=== PATIENT | female | born 1985 | race Caucasian/White ===

== ENCOUNTER 2018-06-16 07:28 | Outpatient (CLI) | payer BC, SELFPAY | END 2018-06-16 07:48 | PROVIDERS: Advanced Practice Midwife; PCP Family Medicine; Visit Provider Advanced Practice Midwife | DX: O24.429 Gestational diabetes mellitus in childbirth, unspecified control (principal) | CPT/HCPCS: 36410; 82951 ==

== ENCOUNTER 2019-03-16 12:37 | Outpatient (REF) | payer BC, SELFPAY ==
[2019-03-17 15:03] LABS: Chlamydia Result Negative; GC Result Negative; Specimen Description CERVIX
== END 2019-03-16 12:57 ==
LOC: LBN 12:37
PROVIDERS: PCP Family Medicine; Visit Provider Nurse Practitioner Family
DX: Z11.3 Encounter for screening for infections with a predominantly sexual mode of transmission (principal)
CPT/HCPCS: 87491; 87591

== ENCOUNTER 2019-11-18 13:33 | Outpatient (REF) | payer BC, SELFPAY ==
[2019-11-19 14:53] LABS: Chlamydia Result Negative (Negative); GC Result Negative (Negative)
== END 2019-11-18 13:53 ==
LOC: LBN 13:33
PROVIDERS: PCP Family Medicine; Visit Provider Nurse Practitioner Family
DX: Z11.3 Encounter for screening for infections with a predominantly sexual mode of transmission (principal)
CPT/HCPCS: 87491; 87591

== ENCOUNTER 2020-02-10 00:54 | Outpatient (CLI) | payer BC, SELFPAY ==
--- NOTE | 2020-02-10 13:00 | DI.US_ITS ---
EXAM: US PELVIS TRANSVAGINAL CLINICAL HISTORY: Heavy and painful periods,menorrhagia, n92.0. TECHNIQUE: Transabdominal and transvaginal pelvic ultrasound was performed using standard protocol. COMPARISON: OB ASSESSMENT - WEIGHT/ISIAH from 04/27/2018 FINDINGS: KIDNEYS: Kidneys are symmetric in size. No evidence of renal calculi. No evidence of hydronephrosis. No renal mass or cyst identified. UTERUS: Position: Anteverted. Size: 10.5 x 4.7 x 6.3 cm Endometrium: 1.1 cm. Normal for patient's menstrual status. Myometrium: Unremarkable. Cervix: Nabothian cysts present. OVARIES: Right: 3.2 x 1.5 x 2.4 cm Cyst or mass: Follicular cysts are present. Left: 3.2 x 1.9 x 3.6 cm Cyst or mass: Follicular cysts are present with a 1.8 cm dominant follicle. DOPPLER: Color: Symmetric and uniform flow to both ovaries. No hyperemia. Duplex: Normal ovarian arterial waveforms visualized. CUL-DE-SAC: Free fluid: None. Other: The spleen is at the upper limits of normal measuring 12 cm in length. There is a 1 cm cyst i n the spleen. IMPRESSION: 1. Normal sonographic appearance of the kidneys. 2. Normal-appearing uterus with endometrial stripe within normal limits. 3. Unremarkable bilateral ovaries. DATA REPOSITORY:
== END 2020-02-10 01:14 ==
PROVIDERS: PCP Family Medicine Adult Medicine; Visit Provider Nurse Practitioner Family
DX: N92.0 Excessive and frequent menstruation with regular cycle (principal); N83.01 Follicular cyst of right ovary; N83.02 Follicular cyst of left ovary
CPT/HCPCS: 76830; 76856

== ENCOUNTER 2020-02-10 01:13 | Outpatient (CLI) | payer BC, SELFPAY ==
[2020-02-10 13:36] LABS: TSH (W/Ref FT4) 1.51 uIU/mL (0.36-3.74)
== END 2020-02-10 01:33 ==
PROVIDERS: PCP Family Medicine Adult Medicine; Visit Provider Nurse Practitioner Family
DX: N92.6 Irregular menstruation, unspecified (principal)
CPT/HCPCS: 36415; 84443

== ENCOUNTER 2020-02-11 16:04 | Outpatient (REF) | payer BC, SELFPAY ==
--- NOTE | 2020-02-11 14:45 | ENDOMET_PTH ---
PATIENT: Cele Romero LOC: [facility] U#:[id number] AGE/SX: 34/F ROOM: RE02/11/[address]: Ashley Lewis : 1985 BED: DIS: 02/11/2020 SPEC #: [id number] RECD: 02/11/20 16:20 STATUS: JOYCELYN RELinus #: [id number] LI: 02/11/20 14:[address]: Ashley Lewis DEPT: Surgical Specimen RECD BY: Lucio Aguilar ENTERED: 02/11/20 16:21 SP TYPE: Endomet OTHR DR: Jose Velasquez Tissues: 1 - ENDOMETRIUM BX/CURRETTE Procedures: GROSS AND MICRO LEVEL 4 Comments: [id number]
== END 2020-02-11 16:24 ==
LOC: LBN 16:04
PROVIDERS: PCP Family Medicine Adult Medicine; Visit Provider Obstetrics & Gynecology Gynecology
DX: N92.0 Excessive and frequent menstruation with regular cycle (principal); N85.01 Benign endometrial hyperplasia
CPT/HCPCS: 88305

== ENCOUNTER 2022-04-29 02:02 | Outpatient (CLI) | payer BC, SELFPAY ==
--- OUTSIDE RECORDS SUMMARY | 2022-04-29 02:04 | XMS_ITS | Encounter Summary ---
:1985 Author Organization [facility] [address] Care Team Providers Name Role Phone Jose Velasquez MD Primary Care Provider Encounter Details Date Type Department Care Team Description 07/15/2020 Telephone General Surgery at [facility] Gonzalez Cadena MD [facility] [place] [phone] GENERAL SURGERY [phone] [place], [place] [address] (Wo rk) Social History Tobacco Use Types Packs/Day Years Used Date Never Smoker Smokeless Tobacco: Never Used Sex Assigned at Date Recorded Not on file documented as of this encounter Miscellaneous Notes Telephone Encounter - Gonzalez Cadena MD - 07/15/2020 10:30 AM EDT I was called by Cele Romero this morning 07/15 with complaints of seton related pain. She states that since she has had her Seton placed earlier this week she has been having pain in the jaylene-anal area. This pain is exacerbated by movement as well as bowel movements. She states she can move the seton, it continues to drain small amount of fluid, she denies fevers/chills, and she cannot appreciate any local masses in the area. She is currently taking tylenol/ibuprophen for pain management. I discussed with her the options of coming to ED vs. Coming to be seen in clinic earlier than her scheduled 08/10 appointment. She agreed that it would be reasonable to hold off on coming to the ED for now. I explained to her that if she starts to develop fevers/chills, fatigue, or an enlarging mass in the jaylene-anal region that she should call back and potentially be seen sooner. For pain control in the shortterm, I will prescribe her 10 tablets of tramadol. She is already taking miralax every morning in her coffee to keep her stool soft. I told her she could increase that to twice a day while she takes the tramadol and to decrease back to once a day if her stools become too loose. Gonzalez Cadena MD 07/15/20 documented in this encounter Plan of Treatment Not on filedocumented as of this encounter Visit Diagnoses Not on filedocumented in this encounter Care Teams Bait Digger Relationship Specialty Start Date End Date Jose Velasquez MD PCP - General General Internal Medicine 12/08/[address] [place] [phone] documented as of this encounter
--- OUTSIDE RECORDS SUMMARY | 2022-04-29 02:04 | XMS_ITS | Encounter Summary ---
:1985 Author Organization [facility] [place] [address] Care Team Providers Name Role Phone Joes Velasquez MD Primary Care Provider Reason for Referral Consultation (Routine) - Closed Specialty Diagnoses / Procedures Referred By Contact Refer red To Contact Gastroenterology Diagnoses Perianal fistula Pavel Ramos, KAM[facility] [address] [place] [address] [place] [address] Phone: Referral ID Status Reason Start Date Expiration Date Visits V isits Requested Authorized [id number] Closed Test Only 02/01/2021 02/01/2022 1 1 Reason for Visit Reason Comments Follow-up Encounter Details Date Type Department Care Team Description 02/01/2021 Office Visit General Surgery at Pavel Ramos, Aimee anal fistula [facility] [place] [facility] [place] [phone] Social History Tobacco Use Types Packs/Day Years Used Date Never Smoker Smokeless Tobacco: Never Used Sex Assigned at Date Recorded Not on file documented as of this encounter Last Filed Vital Signs Vital Sign Reading Time Taken Comments Blood Pressure 126/77 02/01/2021 9:43 AM EDT Pulse 77 02/01/2021 9:43 AM EDT Temperature 36.4 ??C (97.5 ??F) 02/01/2021 9:43 AM EDT Respiratory Rate 16 02/01/2021 9:43 AM EDT Oxygen Saturation 100% 02/01/2021 9:43 AM EDT Inhaled Oxygen Concentration - - Weight 123.7 kg (272 lb 9.6 oz) 02/01/2021 9:43 AM EDT Height 165.1 cm (5' 5) 02/01/2021 9:43 AM EDT Body Mass Index 45.36 02/01/2021 9:43 AM EDT documented in this encounter Progress Notes Pavel Ramos PA - 02/01/2021 10:00 AM EDT Colorectal Surgery Outpatient Follow-up ~ Division of Colon and Rectal Surgery ~ [facility] Primary Care Physician: Jose Velasquez MD Referring Provider: Jose Velasquez HPI: Cele Romero is a 35 y.o. female from [facility]. She is here for a post-operative check. 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 She had a significant amount of irritation after placement of the seton. We trimmed some of the excesslength of seton and this improved things for her dramatically. She returns today for interval follow-up. At our last visit in August 2020 we had discussed surgical repair options including endorectaladvancement flap versus LIFT versus long-term maintenance of the seton. Past medical history: Past Medical History: Diagnosis Date ??? Acne Past surgical history: Past Surgical History: Procedure Laterality Date ??? PRO REMOVAL ANAL FISTULA, COMPLEX/MULTI N/A 07/11/2020 SURGICAL TREATMENT OF ANAL FISTULA COMPLEX OR MULTIPLE W\WO SETON PLACEMENT (WRVU 6.39) performed by Bry Gama MD at [facility] Allergies: Patient has no known allergies. Medications: reviewed in the electronic medical record. Current Outpatient Medications on File Prior to Visit Medication Sig Dispense Refill ??? loratadine (Claritin) 10 mg Tablet Take 10 mg by mouth daily. ??? traMADoL (Ultram) 50 mg Tablet Take 1 tablet by mouth every 6 hours as needed for Pain. (Patientnot taking: Reported on 08/10/2020) 10 tablet 0 ??? diphenhydramine HCl (ALLERGY ORAL) Take by mouth daily. ??? etonogestreL (NEXPLANON) 68 mg Implant by Subdermal route Continuous (Device). Expected removal date 02/2022 ??? vitamin with [id number] Tablet Take by mouth. No current facility-administered medications on file prior to visit. Social history: reports that she has never smoked. She has never used smokeless tobacco. Family medical history: No family history on file. Physical exam: Vitals: unknown if currently .There is no height or weight on file to calculate BMI. General: Well developed. NAD. The patient was positioned on the table prone mirian-knife with assistance from nursing. The perianal skin is clean. The left lateral seton is in good position. There is minimal surroundinginflammation. The seton tract appears well-defined. There is some surrounding periseton fibrosis. Ondigital anorectal examination she does have some tenderness to palpation internal opening can be palpated at approximately 1 cm from the anal verge. A well-lubricated Hirschman anoscope was inserted into the anal canal four-quadrant anoscopy identifies internal hemorrhoids which are grade 1 with some engorgement and ectatic vessels. In the left lateral position the seton internal opening is clearly visualized with minimal surrounding drainage. COREFO Responses 07/06/2020 07/19/2020 08/10/2020 09/04/2020 Incontinence Scale 11.11 22.22 13.88 11.11 Social Impact Scale 25 13.88 19.44 13.88 Frequency Scale 12.5 12.5 12.5 12.5 Stool Releated Aspects 66.66 66.66 41.66 16.66 Medication Scale 16.66 41.66 25 16.66 Total COREFO Score 23.07 25.96 20.19 13.46 The COREFO questionnaire is a validated questionnaire with 27 questions to assess colorectal functional outcome. Patients are asked to consider the two week period prior before filling out the questionnaire. Category scores range from zero to 100. A total score is calculated from the categories above,also ranging from zero to 100. A higher score represents an increased level of functional disturbance. No flowsheet data found. Pathology: No results found for: SURGFINALRPT Colonoscopy: Imaging: reviewed. Impression/Plan: Cele Romero is now 7 months s/p left lateral seton placement for control of an transphincteric fistula on 07/11/2020. The patient and I had a long discussion regarding treatment of perianal fistulae. Prior to this treatment algorithm which includes observation which includes lift pr ocedure endoanal advancement flap versus fistulotomy. Prior to this, the patient will require evaluation with colonoscopy as she has not had one in greater than 10 years. I would like her to see my partner Dr. Akua Chatterjee in the next months following colonoscopy for repeat evaluation and anoscopy with discussion of repair options. He has been a pleasure to participate in her care. Pavel Ramos PA-C, [facility] Division of Colon and Rectal Surgery [facility] Pager [phone] documented in this encounter Plan of Treatment Scheduled Referrals Name Type Priority Associated Order Schedule Diagnoses REFERRAL TO Outpatient Referral Routine Perianal fistula Orde red: COLONOSCOPY PROCEDURE 2020 documented as of this encounter Visit Diagnoses Diagnosis Perianal fistula - Primary Anal fistula documented in this encounter Care Teams Biomedical Repair Technician Relationship Specialty Start Date End Date Jose Velasquez MD PCP - General General Internal Medicine 12/08/17 [address] [place] [address] documented as of this encounter
--- OUTSIDE RECORDS SUMMARY | 2022-04-29 02:04 | XMS_ITS | Encounter Summary ---
:1985 Author Organization [facility] [place] [address] Care Team Providers Name Role Phone Jose Velasquez MD Primary Care Provider Reason for Visit Auth/Cert Specialty Diagnoses / Procedures Referred By Contact Refer red To Contact Diagnoses Inflammatory bowel disease 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 Assess for inflammatory bowel disease. Procedures PRO COLONOSCOPY, DIAGNOSTIC PRO COLONOSCOPY, REMV LESN, SNARE PRO COLONOSCOPY, BIOPSY PRO ANESTH, LWR INTESTINE, NOS COLONOSCOPY, DIAGNOSTIC Referral ID Status Reason Start Date Expiration Date Visits Requ ested Visits Authorized [id number] 1 1 Encounter Details Date Type Department Care Team Description 02/15/2021 Surgery Operating Room Gilbert Best C OLONOSCOPY FLEXIBLE, Alise Robins MD WITH BX (WRVU 3.66) [address] [place] [address] GASTROENTEROLOGY [place], [place] [address] (Wo rk) Social History Tobacco Use Types Packs/Day Years Used Date Never Smoker Smokeless Tobacco: Never Used Sex Assigned at Date Recorded Not on file documented as of this encounter Last Filed Vital Signs Vital Sign Reading Time Taken Comments Blood Pressure 129/86 02/15/2021 11:24 AM EDT Pulse 86 02/15/2021 11:09 AM EDT Temperature 36.4 ??C (97.5 ??F) 02/15/2021 11:09 AM EDT Respiratory Rate 16 02/15/2021 11:24 AM EDT Oxygen Saturation 100% 02/15/2021 11:24 AM EDT Inhaled Oxygen Concentration - - Weight 123.4 kg (272 lb) 02/15/2021 10:00 AM EDT Height 165.1 cm (5' 5) 02/15/2021 10:00 AM EDT Body Mass Index 45.26 02/15/2021 10:00 AM EDT documented in this encounter Discharge Instructions Discharge InstructionsShania Ghosh RN - 02/15/2021 10:53 AM EDT You have just undergone surgery and the following instructions are given to help you have an uneventful recovery: DIET: ??? Avoid alcohol for the next 24 hours, otherwise eat and drink as usual. ACTIVITY ??? On the day of the procedure please have a friend drive you home and escort you into your house. Plan to relax for the next few hours. ??? Do not drive or operate machinery until the day after the procedure. ??? DO NOT make any important personal or business decisions for 24 hours. ??? On the day after your procedure, you may return to your usual activities, unless otherwise instructed. DRIVING RESTRICTIONS: ??? You should not drive until you are pain free and off narcotic pain medication. TREATMENT FOR COMMON AFTER EFFECTS COLONOSCOPY ??? Mild abdominal pain, bloating or excessive gas: rest and eat lightly. ??? Loose bowel movements: these may occur for the next few days, but should return to normal on their own. ??? Please drink plenty of fluids today, preferably water, to keep yourself well hydrated. DURING REGULAR BUSINESS HOURS CALL YOUR PHYSICIAN AT : (FOR AFTER HOURS CALL [phone] AND ASK FOR PHYSICIAN COVERING FOR YOUR DOCTOR TO BE PAGED) ENDOSCOPY/ERCP ??? Fever or chills ??? Severe abdominal pain or bloating ??? Vomiting blood ??? Difficulty breathing or swallowing ??? Pain in chest ??? Any questions or problems SMOKING CESSATION INFORMATION: ??? [place] QUITLINE: ??? [place] QUITLINE: ??? [email or web address] If you smoke, stop now! MAKE SURE YOU: ??? Understand these instructions. ??? Will seek medical care if you are feeling poor, or get worse. ??? Will call the office with any questions or concerns at . Nursing information only: ??? Original document to medical records ??? Copy given to patient at discharge ??? Belongings/Valuables returned to patient ??? All questions answered ??? IV and hospital equipment removed from patient as appropriate The above information has been presented or demonstrated. I/we have had the opportunity to ask questions. I/we fully understand the instructions given. I/we have received a copy of this form. documented in this encounter Medications at Time of Discharge Medication Sig Dispensed Refills Start Date End Date multivitamin Tablet, Take by mouth daily. 0 Chewable lactobacillus rhamnosus, Take 1 capsule by 0 GG, (CULTURELLE) 10 mouth daily. billion cell Capsule loratadine (Claritin) 10 Take 10 mg by mouth 0 mg Tablet daily. etonogestreL (NEXPLANON) by Subdermal route 0 68 mg Implant Continuous (Device). Expected removal date 02/2022 documented as of this encounter H&P Notes Gilbert Batista MD - 02/15/2021 9:58 AM EDT Patient Name: Cele Romero Patient Age: 35 y.o. Birthdate: 1985 Admit date: 02/15/2021 Attending Physician: Gilbert Batista MD Gastroenterology and Hepatology Pre-Procedure History and Physical Exam Procedure: Colonoscopy: Indication: evaluate for IBD Patient Active Problem List Diagnosis Code ??? Positive test for human papillomavirus (HPV) [id number] ??? Morbid obesity with body mass index of 40.0-49.9 E66.01 ??? Encounter for supervision in primigravida, antepartum Z34.00 EXAM: HEENT: Airway examined, oropharynx clear Mallampati Score: II (soft palate, uvula, fauces visible) LUNGS: Clear to auscultation HEART: Regular rate and rhythm, normal S1, S2 ABDOMEN: Normal bowel sounds, soft, non tender, non distended, A/P Proceed with the planned endoscopic procedure. ASA 2 - Patient with mild systemic disease with no functional limitations Sedation Plan: anesthesia Risks and benefits of the procedure explained to the patient. Consent signed. documented in this encounter Miscellaneous Notes Op Note - Gilbert Batista MD - 02/15/2021 10:47 AM EDT DH Operative Note Patient Name: Cele Romero : [id number] MR#: [id number] Case Date: 02/15/2021 Surgeon: Surgeon(s) and Role: * Gilbert Batista MD - Primary Procedure(s): COLONOSCOPY FLEXIBLE, WITH BX (WRVU 3.66) Please see Provation report for details. documented in this encounter Plan of Treatment Not on filedocumented as of this encounter Procedures Procedure Name Priority Date/Time Associated Diagnosis Comme nts SPECIMEN TO Routine 02/15/2021 10:57 Results for this PATHOLOGY AM EDT procedure are i n the results section. SPECIMEN TO Routine 02/15/2021 10:57 Results for this PATHOLOGY AM EDT procedure are i n the results section. SURGICAL PATHOLOGY Routine 02/15/2021 10:56 Resul ts for this REPORT AM EDT procedure are i n the results section. COLONOSCOPY 02/15/2021 10:42 Bright red blood per FLEXIBLE, WITH BX AM EDT rectum history of (WRVU 3.66) recurrent fistula. Assess for inflammatory bowel disease. COLONOSCOPY Routine 02/15/2021 10:30 Results for this AM EDT procedure are i n the results section. POCT URINE Routine 02/15/2021 Results for this procedure are i n the results section. documented in this encounter Results Specimen to Pathology (02/15/2021 10:57 AM EDT) Specimen Anatomical Collection Method Collection Time Receive d Time (Source) Location / / Volume Laterality AP Specimen 02/15/2021 10:57 02/15/2021 AM EDT 10:57 AM EDT [facility]AT [facility]Y - 02/15/2021 10:57 AM EDT Specimen requisition ordered. ??Separate Pathology report to follow Gilbert Batista MD PATHOLOGY/CYTOLOGY ORDERABLE S Performing Organization Address City/State/ZIP Code Phon e Number [address] Specimen to Pathology (02/15/2021 10:57 AM EDT) Specimen Anatomical Collection Method Collection Time Receive d Time (Source) Location / / Volume Laterality AP Specimen 02/15/2021 10:57 02/15/2021 AM EDT 10:57 AM EDT Narrative [facility] LABORAT [facility]Y - 02/15/2021 10:57 AM EDT Specimen requisition ordered. ??Separate Pathology report to follow Gilbert Batista MD PATHOLOGY/CYTOLOGY ORDERABLE S Performing Organization Address City/[facility]/ZIP [place] [address] Surgical Pathology Report (02/15/2021 10:56 AM EDT) Component Value Ref Test Analysis Performed At [facility] Range Method Time Signature Surgical [id number] ? Location: [facility]-; RI10; A [facility] Report The signing pathologist has (i) examined the relevant preparation(s) for the [facility] specimen(s) and (ii) rendered or confirmed the diagnosis(es) . HOSPITAL LABORATORY . ?Surgic al Pathology DIAGNOSIS A - Terminal ileum non-targeted biopsies: Ileal mucosa within normal limits. B - Colon non-targeted biopsies: Colonic mucosa within normal limits. CR-PX Electronically signed by: ?Leticia Nathan MD Verified: ??02/20/2021 23:24 ??Pathologist Performed at: ??-[facility] Dept. of Pathology, [place], [place] SPECIMEN(S) SUBMITTED A - Terminal ileum non-targeted biopsies, biopsy (Multiple) B - Colon non-targeted biopsies, biopsy (Multiple) CLINICAL INFORMATION Evaluate for Crohn's disease SPECIMEN PROCESSING A - Labeled/Fixative: Terminal ileum non-targeted biopsies, formalin. Quantity/Size: Fragments, 0.3-0.5 cm. Tissue Description: Soft, strips of gutierrez-pink mucosal tissues . Sections/Processing: Submitted en toto ??in 1 cassette labeled A1. B - Labeled/Fixative: Colon nontargeted biopsies, formalin. Quantity/Size: Multiple, 0.2-0.4 cm. Tissue Description: Soft, gutierrez-pink tissues. Sections/Processing: Entirely submitted in 2 cassettes labeled B1-B2. ??pps Specimen (Source) Anatomical Collection Method Collection Time Re ceived Time Location / / Volume Laterality 02/15/2021 10:56 AM EDT Gilbert Batista MD PATHOLOGY/CYTOLOGY ORDERABLE S Performing Organization Address [facility]/State/ZIP [place] [address] COLONOSCOPY (02/15/2021 10:30 AM EDT) [facility] Method Time Signature COLONOSCOPY [facility] Endoscopy Procedure Date: 02/15/2021 10:30 AM ? Patient Name: Cele Romero ? Date of : 1985 ? Age: 35 ? Order #: [id number] ? Instrument Name: [id number] ? Procedure: ? Colonoscopy Indications: ? Suspected Crohn's disease Patient Profile: ? 35 yo F with perianal fistula s/p ? seton placement presents for ? colonoscopy. Providers: ? Gilbert Morrison MD: ?Jose Velasquez MD, Pavel Rajput. ? Akua Ramos M D Medicines: ? See the Anesthesia note for ? documentation of the administ ered ? medications Complications: ? No immediate complications. Procedure: ? Pre-Anesthesia Assessment: ? - Prior to the procedure, a H istory ? and Physical was performed, a nd ? patient medications and aller gies ? were reviewed. The patient is ? competent. The risks and bene fits of ? the procedure and the sedatio n ? options and risks were discus sed with ? the patient. All questions we re ? answered and informed consent was ? obtained. Patient identificat ion and ? proposed procedure were verif ied by ? the physician. Mental Status ? Examination: alert and orient ed. ? Airway Examination: normal ? oropharyngeal airway and neck ? mobility. Respiratory Examina tion: ? clear to auscultation. CV ? Examination: normal. Prophyla ctic ? Antibiotics: The patient does not ? require prophylactic antibiot ics. ? Prior Anticoagulants: The pat ient has ? taken no previous anticoagula nt or ? antiplatelet agents. ASA Grad e ? Assessment: II - A patient wi th mild ? systemic disease. After revie wing the ? risks and benefits, the patie nt was ? deemed in satisfactory condit ion to ? undergo the procedure. The an esthesia ? plan was to use moderate adia tion / ? analgesia (conscious sedation ). ? Immediately prior to administ ration ? of medications, the patient w as ? re-assessed for adequacy to r eceive ? sedatives. The heart rate, ? respiratory rate, oxygen satu rations, ? blood pressure, adequacy of p ulmonary ? ventilation, and response to care ? were monitored throughout the ? procedure. The physical statu s of the ? patient was re-assessed after the ? procedure. ? The procedure, indications, b enefits, ? risks and alternatives were e xplained ? to the patient. Specifically ? discussed were potential ? complications including, but not ? limited to, bleeding, perfora tion, ? infection, missing a cancer, and ? adverse medication reactions. The ? patient was placed in the lef t ? lateral decubitus position, a nd a ? digital rectal exam was perfo rmed. ? The Colonoscope was inserted in the ? anus and under direct visuali zation, ? advanced to the terminal ileu m, with ? identification of the appendi ceal ? orifice and IC valve. Careful ? inspection was made as the ? colonoscope was withdrawn. Th e ? colonoscopy was performed wit leno ? difficulty. The patient randi ated the ? procedure well. The quality o f the ? bowel preparation was adequat e. ? Findings: ? The colon (entire examined portion) appeared normal. ? Non-targeted biopsies were taken with a cold forceps ? for histology. ? The terminal ileum appeared normal, examined 30-cm ? from ileocecal valve. Biopsies were taken with a cold ? forceps for histology. ? Perianal examination notable for a perianal fistula ? with seton placement. No abscess or induration. ? Few sigmoid diverticulum. ? Internal hemorrhoids on retroflexion. ? Moderate Sedation: ? Propofol sedation; see anesthesia note Impression: ?- The entire examined colon is ? normal. Biopsied. ? - The examined portion of the ileum ? was normal. Biopsied. ? - Few sigmoid diverticulum ? - Internal hemorrhoids ? - Perianal fistula with seton ? placement. No abscess. Recommendation: ?- Follow up pathology ? - Follow up with colorectal s urgery. ? No evidence of inflammatory b owel ? disease on today's colonoscop y. Would ? consider consultation in IBD Center ? at [facility] for consideration of ? additional diagnostic tests t o ? evaluate for IBD. ? - Patient has a contact numbe r ? available for emergencies. Th e signs ? and symptoms of potential del ayed ? complications were discussed with the ? patient. Return to normal act ivities ? tomorrow. Written discharge ? instructions were provided to the ? patient. ? Attending Participation: ? I personally performed the entire procedure. ? Gilbert Batista, 02/15/2021 11:13:45 AM Number of Addenda: 0 Note Initiated On: 02/15/2021 10:30 AM Specimen (Source) Anatomical Collection Method Collection Time Re ceived Time Location / / Volume Laterality 02/15/2021 10:30 AM EDT Gilbert Batista MD GENERAL SURGICAL ORDERABLES Performing Organization Address City/State/ZIP Code Phon e Number [facility] POCT urine (02/15/2021) [facility] gist Method Time Signature POC Urine HCG Negative Negative - Negative POC Control Internal Controls Acceptable Specimen (Source) Anatomical Location Collection Method / Collectio n Time Received Time / Laterality Volume 02/15/2021 Gilbert Batista MD POINT OF CARE TEST ORDERABLE S documented in this encounter Visit Diagnoses Not on filedocumented in this encounter Active and Recently Administered Medications Care Teams Rapid Extractor Operator Relationship Specialty Start Date End Date Jose Velasquez MD PCP - General General Internal Medicine 12/08/17 [address] [place], [place] [id number] [phone] documented as of this encounter
--- OUTSIDE RECORDS SUMMARY | 2022-04-29 02:04 | XMS_ITS | Encounter Summary ---
:1985 Author Organization [facility] [place] [place] [address] Care Team Providers Name Role Phone Jose Velasquez MD Primary Care Provider Encounter Details Date Type Department Care Team Description 06/23/2020 Ancillary Procedure Radiology Library at Dylon Velasquez, [facility] [address] [place] [address] [place] [address] [phone] Social History Tobacco Use Types Packs/Day Years Used Date Never Smoker Smokeless Tobacco: Never Used Sex Assigned at Date Recorded Not on file documented as of this encounter Plan of Treatment Not on filedocumented as of this encounter Procedures Procedure Name Priority Date/Time Associated Diagnosis Comme nts FILM LIBRARY Routine 06/23/2020 12:00 AM Results for this STORAGE ONLY CT EDT procedure ar e in PELVIS the results section. documented in this encounter Results Film Library- Storage Only CT Pelvis (06/23/2020 12:00 AM EDT) Specimen (Source) Anatomical Location Collection Method / Collectio n Time Received Time / Laterality Volume Narrative JEREMY - 06/24/2020 4:55 AM EDT This exam is auto-finalizing. It's purpo se is for storage only. Jose Velasquez MD [facility] FILM LIBRARY ORDERABLES Performing Organization Address City/State/ZIP Code Phon e Number [place], [place] documented in this encounter Visit Diagnoses Not on filedocumented in this encounter Care Teams Emergency Room Physician Relationship Specialty Start Date End Date Jose Velasquez MD PCP - General General Internal Medicine 12/08/17 [address] [place] [address] documented as of this encounter
--- OUTSIDE RECORDS SUMMARY | 2022-04-29 02:04 | XMS_ITS | Encounter Summary ---
:1985 Author Organization [facility] [place] [address] Care Team Providers Name Role Phone Jose Velasquez MD Primary Care Provider Reason for Visit Auth/Cert Specialty Diagnoses / Procedures Referred By Contact Refer red To Contact Diagnoses Anal fistula ANAL FISTULA Procedures PRO SURG DIAGNOSTIC EXAM, ANORECTAL PRO REMOVAL ANAL FISTULA, SUBMUSCULAR ANORECTAL EXAM, REQUIRING ANESTHESIA, DIAGNOSTIC (WRVU 1.8) ANAL FISTULA (FISTULECTOMY\FISTULOTOMY), SUBMUSCULAR (WRVU 5.42) Referral ID Status Reason Start Date Expiration Date Visits Requ ested Visits Authorized [id number] 1 1 Encounter Details Date Type Department Care Team Description 04/25/2021 Hospital Encounter Same Day Program [place] [address] [place] [address] [phone] Social History Tobacco Use Types Packs/Day Years Used Date Never Smoker Smokeless Tobacco: Never Used Alcohol Use Standard Drinks/Week Comments Not Currently 0 (1 standard drink = 0.6 oz pure alcoho l) rarely Alcohol Habits Answer Date Recorded How often do you have a drink containing alcohol? Not asked How many drinks containing alcohol do you have on a typical Not asked day when you are drinking? How often do you have six or more drinks on one occasion? No t asked Comment: rarely 04/24/2021 Sex Assigned at Date Recorded Not on file documented as of this encounter Last Filed Vital Signs Vital Sign Reading Time Taken Comments Blood Pressure 123/66 04/25/2021 11:30 AM EDT Pulse 88 04/25/2021 11:30 AM EDT Temperature 36.8 ??C (98.2 ??F) 04/25/2021 2:15 PM EDT Respiratory Rate 18 04/25/2021 11:30 AM EDT Oxygen Saturation 100% 04/25/2021 11:30 AM EDT Inhaled Oxygen Concentration - - Weight 120.2 kg (265 lb) 04/25/2021 6:33 AM EDT Height 165.1 cm (5' 5) 04/25/2021 6:33 AM EDT Body Mass Index 44.1 04/25/2021 6:33 AM EDT documented in this encounter Discharge Instructions Discharge InstructionsJoel Walls RN - 04/25/2021 9:38 AM EDT Next dose of acetaminophen (tylenol) can be taken at ___1pm . Next dose of ibuprofen can be taken at 3:30pm Patient InstructionsRosemarie Vega MD - 04/25/2021 9:05 AM EDT DIVISION OF COLON & RECTAL SURGERY Anorectal Surgery Patient Post-operative Discharge Instructions 1. Wound Care ?? If there is a dressing, please leave the dressing intact today and remove it tomorrow morning. Ifyou need to move your bowels, the dressing may be removed sooner. ?? Expect some drainage - this may be residual pus, or may be a small amount of blood or mucus - this is normal / expected. It may last for a 2-3 weeks. ?? Please use fluffy 4x4 gauze to absorb any drainage and keep your bottom dry. ?? You may have some packing your wound that you should remove in the sitz bath tomorrow morning. ?? Please use a sitz bath or shower 3 - 4X per day (starting tomorrow morning). ?? Sitz bath instructions: Soak your buttocks in plain warm tapwater for 15 minutes 4X/day and afterbowel movements. This is comforting and also increase blood flow to the area to aid in healing. ?? You may sit on a pillow but do not sit on donut cushions as it spreads the buttocks. 2. Pain medications ?? A local anesthestic numbing block was performed during your procedure for postoperative pain control. ?? Please take [id number] pain medications for post-operative discomfort. ?? Acetaminophen (Tylenol) 1000 mg by mouth every 6 hours. ?? Ibuprofen (Motrin/Advil) 600 mg by mouth every 6 hours with food & plenty of liquids or Naproxen (Aleve) 500 mg twice daily. Take either Ibuprofen or Naproxen not both. ?? You may alternate these medications every 3 hours; ex. Tylenol at 12pm, Ibuprofen at 3pm, Tylenolat 6pm, Ibuprofen at 9 pm. ?? In addition, if your pain is uncontrolled with the medications above, please use prescribed narcotic pain medication if given to you. As you use less pain medication, narcotics should be the first to eliminate. ?? Narcotic pain medication is known to cause constipation. 3. Avoid getting constipated ?? Drink plenty of water and fluids (over 2 liters per day). ?? Each morning please take a daily fiber supplement (such as Citrucel or BeneFiber), one heaping tablespoon in 8 oz. of water. (MiraLax may be recommended instead of fiber) ?? If you do not have a bowel movement in 48 hours then take 30 cc of Milk of Magnesia every 12 hours until you have a bowel movement. If you do not have a bowel movement after 2 doses of Milk of Magnesia please call (see below). 4. When to call ?? Fever > 101.5 F ?? worsening pain ?? active bleeding, passing blood clots ?? difficulty/inability to pass urine (urinary retention) or stool (constipation) ?? any other worrisome condition or question ?? during regular work hours call the Surgery Clinic at ?? after hours / nights / weekends / holidays: call and ask for the General Surgery Resident doctor On-Call. ?? Follow-up. You will have a post-operative follow-up appointment with your Surgical Team scheduled, usually in 2 - 4 weeks. If you have any questions, please call . Division of Colon and Rectal Surgery, [facility] [address] ??? [place] [id number] ??? documented in this encounter Medications at Time [...] date 02/2022 documented as of this encounter Progress Notes Joel Walls RN - 04/25/2021 2:49 PM EDT Patient discharge to home. IV removed, site benign. My assessment remains unchanged from my previousassessment. RN Discussed pain management with patient, pain tolerable. Patient medicated prior to discharge. Patient has all belongings and supplies needed. Patient mobilized in room and to bathroom without difficulties prior to discharge. Patient received After Visit Summary. These were reviewed, patient verbalizes understanding of AVS. All questions answered. Patient encouraged to call with questions or concerns. Patient discharged to home with family. documented in this encounter H&P Notes Rosemarie Vega MD - 04/25/2021 7:20 AM EDT H&P 24hr interval update/Pre-operative note Please see Dr. Akua Chatterjee's note from clinic for further information. ID: Cele Romero is a 35 y.o. female with a history of left lateral perianal fistula who underwent EUA and seton placement in June 2020, presents to [facility] for EUA, possible LIFT, or possible fistulotomy. Past Medical History: Diagnosis Date ??? Acne Past Surgical History: Procedure Laterality Date ??? PRO COLONOSCOPY, BIOPSY N/A 02/15/2021 COLONOSCOPY FLEXIBLE, WITH BX (WRVU 3.66) performed by Gilbert Batista MD at [facility] MAIN OR ??? PRO REMOVAL ANAL FISTULA, COMPLEX/MULTI N/A 07/11/2020 SURGICAL TREATMENT OF ANAL FISTULA COMPLEX OR MULTIPLE W\WO SETON PLACEMENT (WRVU 6.39) performed by Bry Gama MD at [facility] No current facility-administered medications on file prior to encounter. Current Outpatient Medications on File Prior to Encounter Medication Sig Dispense Refill ??? metroNIDAZOLE (Flagyl) 500 mg Tablet Take 4 tablets po at 7pm and 4 tablets at 11pm the night before surgery per bowel prep instructions 8 tablet 0 ??? neomycin (Mycifradin) 500 mg Tablet Take 4 tablets po at 7pm and 4 tablets at 11pm the night before surgery per bowel prep instructions 8 tablet 0 ??? ondansetron (Zofran) 8 mg Tablet Day before surgery: take 1 tablet po at 1pm and 9pm. Day of surgery: take 1 tablet po at 5:30am per bowel prep instructions 3 tablet 0 ??? multivitamin Tablet, Chewable Take by mouth daily. ??? lactobacillus rhamnosus, GG, (CULTURELLE) 10 billion cell Capsule Take 1 capsule by mouth daily. ??? loratadine (Claritin) 10 mg Tablet Take 10 mg by mouth daily. ??? etonogestreL (NEXPLANON) 68 mg Implant by Subdermal route Continuous (Device). Expected removal date 02/2022 S: Cele Romero endorses no recent change in health. Denies any fever, chills, cough, congestion,change in bowel habits. Prior to arrival today, Cele Romero was in a normal state of health. O: Physical Exam: Gen: AAOx3, resting comfortably CVS: regular rate Pulm: Unlabored breathing on room air, no audible wheezes Abd: soft, non tender, non distended Ext: wwp A/P: Cele Romero is a 35 y.o. female with a history of left lateral perianal fistula who presents for planned EUA, possible LIFT, or possible fistulotomy. Will proceed with planned operation. Consent signed and in chart. Rosemarie Vega MD 04/25/2021 General Surgery [id number] documented in this encounter Miscellaneous Notes Brief Op Note - Rosemarie Vega MD - 04/25/2021 9:00 AM EDT Brief Operative Note Patient Name: Cele Romero : [id number] MR#: [id number] Case Date: 04/25/2021 Surgeon: Surgeon(s) and Role: * Akua Chatterjee MD - Primary * Rosemarie Vega MD - Resident Preoperative diagnosis: ANAL FISTULA Postoperative diagnosis: ANAL FISTULA Procedure(s) (LRB): ANORECTAL EXAM, REQUIRING ANESTHESIA, DIAGNOSTIC (WRVU 1.8) (N/A) ANAL FISTULA (FISTULECTOMY\FISTULOTOMY), SUBMUSCULAR (WRVU 5.42) (N/A) Anesthesia: General Findings: Left lateral transsphincteric fistula Complications: None Estimated Blood Loss: * No values recorded between 04/25/2021 8:11 AM and 04/25/2021 9:00 AM * * No values recorded between 04/25/2021 8:11 AM and 04/25/2021 9:00 AM * Specimens removed during surgery: Order Name Source Comment Collection Info Order Time SPECIMEN TO PATHOLOGY ANAL FISTULA left buttocks external opening excision 04/25/2021 8:34 AM Time specimen removed from patient: 8:33 AM Number of tissue samples (in container) 1 Fluids: Intraprocedure Crystalloid Total Intake Lactated Ringers 500.00 mL Total Intake 500 mL PRBCs: none (See Anesthesia Record/Report for Other Blood Products) Urine Output: (no urine output recorded) Drains: None Disposition: awakened from anesthesia, extubated and taken to the recovery room in a stable condition, having suffered no apparent untoward event. Condition: doing well without problems (Please see the Surgical Encounter Summary for any Implant and Specimen details pertinent to this patient.) Infection Bundle used? N/A Rosemarie Vega MD Op Note - Akua Chatterjee MD - 04/25/2021 8:11 AM EDT [facility] Operative Note Patient Name: Cele Romero : [id number] MR#: [id number] Case Date: 04/25/2021 Surgeon: Surgeon(s) and Role: * Akua Chatterjee MD - Primary * Rosemarie Vega MD - Resident Preoperative diagnosis: ANAL FISTULA Postoperative diagnosis: ANAL FISTULA Procedure(s) (LRB): ANORECTAL EXAM, REQUIRING ANESTHESIA, DIAGNOSTIC (WRVU 1.8) (N/A) ANAL FISTULA (FISTULECTOMY\FISTULOTOMY), SUBMUSCULAR (WRVU 5.42) (N/A) Anesthesia: General Estimated Blood Loss: * No values recorded between 04/25/2021 8:11 AM and 04/25/2021 8:54 AM * Specimens removed during surgery: Order Name Source Comment Collection Info Order Time SPECIMEN TO PATHOLOGY ANAL FISTULA left buttocks external opening excision 04/25/2021 8:34 AM Time specimen removed from patient: 8:33 AM Number of tissue samples (in container) 1 Drains: * No LDAs found * Surgical Closure: NA Disposition: awakened from anesthesia, extubated and taken to the recovery room in a stable condition, having suffered no apparent untoward event. Condition: doing well without problems (Please see the Surgical Encounter Summary for any Implant and Specimen details pertinent to this patient.) HPI/Surgical Indications: Cele Romero is a 35 yo woman with a left lateral transsphincteric perianal fistula. Has had a seton since June 2020 and has no evidence of ongoing sepsis. Recent colonoscopy was normal. ?? Discussed options for management of the fistula including inspector balance truing draining seton, fistulotomy, LIFT, and endorectal advancement flap. I could not clearly palpate a fistula tract on exam and she wouldnot tolerate placement of a fistula probe in the office. I did review Dr. Gama's note at the timeof her EUA with her as well as my findings on office exam. She would like to proceed with LIFT - if intraop findings suggest minimal muscle involvement, then would proceed with fistulotomy but given office findings and her strong desire to avoid changes to her bowel control, will proceed with LIFT. ?? We discussed the risks and benefits of surgery including risks of pain, bleeding, infection, recurrence (60-80% success with LIFT), change in bowel control, need for further procedures or operations,and problems with other organ systems including the heart, lungs, liver, kidneys, blood clots, and . Procedure Description: Cele Romero was brought to the operating room. General anesthesia was induced on the gurney. The patient was positioned in the prone jackknife position on the operating tableover gel rolls. The breasts were not under pressure. The buttocks were taped apart and the perineum was prepped with Hibiclens and sterilely draped. A surgical timeout was called confirming the patientand procedures to be performed. No antibiotics were indicated and the patient had SCDs for DVT prophylaxis. 30cc of 0.5% bupivacaine was injected as an anal block. We began the procedure with an external examination. There is a left lateral draining seton in place. No other skin abnormalities. Tract is able to be palpated under general anesthesia. On digital rectal exam, tone is normal. No masses, no blood. Anoscopy was performed with the [facility] [place] retractor. Findings include normal distal rectum and anal canal besides the left lateral known fistula. A fistula probe was easily passed through the tract. This is low transspincteric fistula but the internal sphincter is very short. The patient strongly wishes to avoid changes to continence and thus, I proceeded with the planned LIFT. A 1cm incision was made over the intersphincteric groove on the left. A fine right angle was used to dissect around the fistula tract within the inter-sphincteric groove. 2, 2-0 silk ties were placed to aid retraction. The seton was removed leaving only the probe in place. 3-0 PDS sutures were placed through the tract and tied down over half the tract. The probe was then removed and the tract was divided sharply. The silk ties were removed. The PDS sutures were then used to ligate the fistula tract. We tested both sides of the tract with hydrogen peroxide. Additional 3-0 sutures were placed on the external portion of the tract in order to achieve complete occlusion. The external opening was opened more widely with electrocautery. The tract was debrided with a metalcurette. Hemostasis was ensured. The skin incision was closed with 3 interrupted 3-0 vicryl sutures. The buttock tapes were removed. Gauze and mesh underwear were placed as a dressing. The patient was returned to the supine position on the gurney. She was awoken from general anesthesia and extubated in the operating room without difficulty. She was transferred to the recovery room in good condition. Infection Bundle used? N/A Attestation: Case Date: 04/25/2021 I was present and I participated during the entire procedure (does not need to include opening and closing). Akua Chatterjee MD 04/25/2021 documented in this encounter Plan of Treatment Not on filedocumented as of this encounter Procedures Procedure Name Priority Date/Time Associated Comments Diagnosis SPECIMEN TO PATHOLOGY Routine 04/25/2021 8:34 AM Results for this EDT procedure are i n the results section. SURGICAL PATHOLOGY Routine 04/25/2021 8:33 AM Res ults for this REPORT EDT procedure are i n the results section. ANAL FISTULA 04/25/2021 7:34 AM ANAL FISTULA (FISTULECTOMY\FISTULO EDT MARICEL), SUBMUSCULAR (WRVU 5.42) ANORECTAL EXAM, 04/25/2021 7:34 AM ANAL FISTULA REQUIRING ANESTHESIA, EDT DIAGNOSTIC (WRVU 1.8) POCT GLUCOSE Routine 04/25/2021 7:06 AM Results f or this EDT procedure are i n the results section. POCT URINE Routine 04/25/2021 Results for this procedure are i n the results section. documented in this encounter Results Specimen to Pathology (04/25/2021 8:34 AM EDT) Specimen Anatomical Collection Method Collection Time Receive d Time (Source) Location / / Volume Laterality AP Specimen 04/25/2021 8:34 AM 8:34 EDT AM EDT Narrative [facility] - 04/25/2021 8:34 AM EDT Specimen requisition ordered. ??Separate Pathology report to follow Akua Chatterjee MD PATHOLOGY/CYTOLOGY ORDERABLE S Performing Organization Address City/State/[place] [address] [address] [address] Surgical Pathology Report (04/25/2021 8:33 AM EDT) Component Value Ref Test Analysis Performed At Patholo gist Range Method Time Signature Surgical [id number] ? Location: [facility]; [facility]; A [facility] Report The signing pathologist has (i) examined the relevant preparation(s) for the [facility] specimen(s) and (ii) rendered or confirmed the diagnosis(es) . HOSPITAL LABORATORY . ?Surgic al Pathology DIAGNOSIS Left buttocks external opening, excision: - Skin with fistula tract, chronic inflammation and fibrosis . Electronically signed by: ?Omer Ramachandran MD Verified: ??04/27/2021 16:35 ??Pathologist Performed at: ??-[facility] Dept. of Pathology, [place], [place] SPECIMEN(S) SUBMITTED A - left buttocks external opening, excision (1) CLINICAL INFORMATION anal fistula SPECIMEN PROCESSING A - Labeled/Fixative: Left buttocks external opening, fresh. Quantity/Size: Single, 1.8 x 1.3 x 1.1 cm. Tissue Description: Montiel segm ent of skin with soft tissue, fistula opening measuring 0.3 x 0.2 cm. Sections/Processing: [employer] sections in 1 cassette labeled A1. ??MV Specimen (Source) Anatomical Collection Method Collection Time Re ceived Time Location / / Volume Laterality 04/25/2021 8:33 AM EDT Akua Chatterjee MD PATHOLOGY/CYTOLOGY ORDERABLE S Performing Organization Address City/State/ZIP Code Phon e Number [address] POCT Glucose (04/25/2021 7:06 AM EDT) P athologist Signature POC Glucose 120 65 - 199 [facility] mg/dL [facility] Comment: Supplemental ranges: <140 mg/dL before meals <180 mg/dL all other times of the day Specimen Anatomical Collection Method Collection Time Receive d Time (Source) Location / / Volume Laterality Blood 04/25/2021 7:06 AM 7:06 EDT AM EDT Akua Chatterjee MD POINT OF CARE TEST ORDERABLE S Performing Organization Address City/State/ZIP [place] [address] POCT urine (04/25/2021) [facility] gist Method Time Signature POC Urine HCG Negative Negative - Negative POC Control Internal Controls Acceptable Specimen (Source) Anatomical Location Collection Method / Collectio n Time Received Time / Laterality Volume 04/25/2021 Debi Rueda MD POINT OF CARE TEST ORDERABLE S documented in this encounter Visit Diagnoses Not on filedocumented in this encounter Administered Medications Inactive Administered Medications - up to 3 most recent administrations Medication Order MAR Action Action Date Dose Rate Site acetaminophen (Tylenol) tablet Given 04/25/2021 7:10 AM EDT 1,00 0 mg 1,000 mg 1,000 mg, Oral, ONCE, 1 dose, On Fri04/25/21 at 0700, Administer with SIP of H2O only., Day of Surgery (Day of Procedure), Routine acetaminophen (Tylenol) tablet 1,000 mg Given 04/25/2021 1:30 PM EDT 1,000 mg 1,000 mg, Oral, EVERY 6 HOURS PRN, Starting on Fri04/25/21 at 1327, Until Fri04/25/21 at 1650, Pain, Maximum dose of acetaminophen is 4000 mg from all sources in 24 hours. When ordered for pain, acetaminophen should be given even when other ordered pain medications are indicated. , Routine fentaNYL (pf) (50 mcg/mL) multi-dose Given 04/25/2021 10:11 AM E DT 12.5 mcg injection 12.5-25 mcg 12.5-25 mcg, Intravenous, EVERY 5 MIN PRN, Starting on Fri04/25/21 at 0914, Until Fri04/25/21 at 1448, Pain, Give 12.5 mcg every 5 minutes PRN for mild to moderate pain (1-5) Give 25 mcg every 5 minutes PRN for moderate to severe pain (6-10). Hold for respiratory rate less than 10 per minute. Maximum dose 200 mcg over one hour, including OR administration. If ordered with HYDROmorphone or morphine, give HYDROmorphone or morphine first and use fentaNYL for breakthrough pain., PACU Recovery, Routine heparin (porcine) (5,000 units/1 mL) Given 04/25/2021 7:10 AM ED T 5,000 Units subcutaneous injection 5,000 Units 5,000 Units, Subcutaneous, ONCE, 1 dose, On Fri04/25/21 at 0700, Day of Surgery (Day of Procedure), Routine ketorolac (Toradol) (15 mg/mL) injection 15 mg Given 04/25/2021 9:26 AM EDT 15 mg 15 mg, Intravenous, EVERY 8 HOURS PRN, Starting on Fri04/25/21 at 0904, Until Fri04/25/21 at 1448, Pain, moderate pain (4-6), Give for moderate pain, start with Tylenol first then give Toradol if Tylenol is not effective., PACU Recovery, Routine ondansetron (pf) (Zofran) (2 mg/mL) injection 4 Given 04/25/2021 9:55 AM EDT 4 mg mg 4 mg, Intravenous, EVERY 30 MIN PRN, 2 doses, Starting on Fri04/25/21 at 0914, Until Fri04/25/21 at 1448, Nausea, Maximum total dose of 8 mg (including OR administration). If multiple antiemetics ordered, use ondansetron first and if ineffective use prochlorperazine second and if ineffective use promethazine, PACU Recovery prochlorperazine (Compazine) (5 mg/mL) Given 04/25/2021 10:27 AM EDT 5 mg injection 5 mg 5 mg, Intravenous, EVERY 30 MIN PRN, 2 doses, Starting on Fri04/25/21 at 0914, Until Fri04/25/21 at 1448, Nausea, Maximum total dose of 10 mg (including OR administration). If multiple antiemetics ordered, use ondansetron first and if ineffective use prochlorperazine second and if ineffective use promethazine, PACU Recovery, Routine documented in this encounter Active and Recently Administered Medications Times are shown in EDT. Scheduled Medication Order 04/23/2021 04/24/2021 04/25/2021 acetaminophen (Tylenol) tablet 1,000 mg (COMPLETED) 0710 (Given - Provider: Joselyn Christian RN) 1,000 mg, Oral, ONCE, 1 dose, On 04/12 at 0700, Administer with SIP of H2O only., Day of Surgery (Day of Procedure), Routine heparin (porcine) (5,000 units/1 mL) sub cutaneous injection 5,000 Units (COMPLETED) 0710 (Given - Provid er: Joselyn Christian RN) 5,000 Units, Subcutaneous, ONCE, 1 dose, On Fri04/25/21 at 0700, Day of Surgery (Day of Procedure), Routine PRN Medication Order 04/23/2021 04/24/2021 04/25/2021 acetaminophen (Tylenol) tablet 1,000 mg 1330 (Given - Provider: Joel Walls RN) 1,000 mg, Oral, EVERY 6 HOURS PRN, Start ing on Fri04/25/21 at 1327, Until Fri04/25/21 at 1650, Pain, Maximum dose of acetaminophen is 4000 mg from all sources in 24 hours. When ordered for pain, acetami nophen should be given even when other o rdered pain medications are indicated. , Routine BUpivacaine (pf) (Marcaine) (5 mg/mL) 0.5% injection (CANCELED) 0852 (Given - Provider: Akua Chatterjee MD) ONCE PRN, Starting on Fri04/25/21 at 085 2, Until Fri04/25/21 at 1650, Intra- Operative (Intra-Procedure), Routine fentaNYL (pf) (50 mcg/mL) multi-dose injection 12.5-25 mcg (CAN ELED) 1011 (Given - Provider: Joel Walls RN) 12.5-25 mcg, Intravenous, EVERY 5 MIN CA N, Starting on Fri04/25/21 at 0914, Until Fri04/25/21 at 1448, Pain, Give 12.5 mcg every 5 minutes PRN for mild to moderate pain (1-5) Give 25 mcg every 5 minutes PRN for moderate to severe pain (6-10). Hold for respiratory rate less than 10 per minute. Maximum dose 200 mcg over one hour, including OR administration. If ordered with HYDROmorphone or morphine, gi ve HYDROmorphone or morphine first and u se fentaNYL for breakthrough pain., PACU Recovery, Routine ketorolac (Toradol) (15 mg/mL) injection 15 mg (CANCELED) 0926 (Given - Provider: Joel Walls RN) 15 mg, Intravenous, EVERY 8 HOURS PRN, S tarting on Fri04/25/21 at 0904, Until Fri04/25/21 at 1448, Pain, moderate pain (4-6), Give for moderate pain, start with Tylenol first then give Toradol if Tylenol is not effective., PACU Recovery, Routine ondansetron (pf) (Zofran) (2 mg/mL) injection 4 mg (CANCELED) 0955 (Given - Provider: Joel Walls RN) 4 mg, Intravenous, EVERY 30 MIN PRN, 2 d oses, Starting on Fri04/25/21 at 0914, Until Fri04/25/21 at 1448, Nausea, Maximum total dose of 8 mg (including OR administration). If multiple antiemetics orde red, use ondansetron first and if ineffe ctive use prochlorperazine second and if ineffective use promethazine, PACU Recovery prochlorperazine (Compazine) (5 mg/mL) injection 5 mg (CANCELED) 1027 (Given - Provider: Catie Wayne RN) 5 mg, Intravenous, EVERY 30 MIN PRN, 2 d oses, Starting on Fri04/25/21 at 0914, Until Fri04/25/21 at 1448, Nausea, Maximum total dose of 10 mg (including OR administration). If multiple antiemetics ord ered, use ondansetron first and if ineff ective use prochlorperazine second and if ineffective use promethazine, PACU Recovery, Routine documented in this encounter Care Teams Production Internship Relationship Specialty Start Date End Date Jose Velasquez MD PCP - General General Internal Medicine 12/08/17 [address] [place], [place] [id number] documented as of this encounter
--- OUTSIDE RECORDS SUMMARY | 2022-04-29 02:04 | XMS_ITS | Encounter Summary ---
:1985 Author Organization [facility] [place] [address] Care Team Providers Name Role Phone Jose Velasquez MD Primary Care Provider Reason for Visit Reason Comments Follow-up Encounter Details Date Type Department Care Team Description 09/04/2020 Office Visit General Surgery at [facility], Aimee anal fistula; [facility] Morbid obesity with body mass index of 4 0.0-49.[address] [facility] [address], [place], [place] [phone] Social History Tobacco Use Types Packs/Day Years Used Date Never Smoker Smokeless Tobacco: Never Used Sex Assigned at Date Recorded Not on file documented as of this encounter Last Filed Vital Signs Vital Sign Reading Time Taken Comments Blood Pressure 125/68 09/04/2020 12:37 PM EST Pulse 82 09/04/2020 12:37 PM EST Temperature 36.7 ??C (98.1 ??F) 09/04/2020 12:37 PM EST Respiratory Rate 16 09/04/2020 12:37 PM EST Oxygen Saturation 100% 09/04/2020 12:37 PM EST Inhaled Oxygen Concentration - - Weight 120.3 kg (265 lb 3.2 oz) 09/04/2020 12:37 PM EST Height 165.1 cm (5' 5) 09/04/2020 12:37 PM EST Body Mass Index 44.13 09/04/2020 12:37 PM EST documented in this encounter Progress Notes Pavel Ramos PA - 09/04/2020 1:00 PM EST Colorectal Surgery Outpatient Follow-up ~ Division of Colon and Rectal Surgery ~ [facility] Primary Care Physician: Jose Velasquez MD Referring Provider: Evelyn Espitia HPI: Cele Romero is a 34 y.o. female from [facility]. She is here for a post-operative check. 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 She had a significant amount of irritation after placement of the seton. We trimmed some of the excesslength of seton and this improved things for her dramatically. At her last visit, we noted some contralateral irritation on the right buttock from pressure. We are seeing her again today to re-evaluate. She has had one or two instances of minor irritation. Past medical history: Past Medical History: Diagnosis Date ??? Acne Past surgical history: Past Surgical History: Procedure Laterality Date ??? PRO REMOVAL ANAL FISTULA, COMPLEX/MULTI N/A 07/11/2020 SURGICAL TREATMENT OF ANAL FISTULA COMPLEX OR MULTIPLE W\WO SETON PLACEMENT (WRVU 6.39) performed by Bry Gama MD at [facility] Allergies: Patient has no known allergies. Medications: reviewed in the electronic medical record. Current Outpatient Medications on File Prior to Visit Medication Sig Dispense Refill ??? traMADoL (Ultram) 50 mg Tablet Take 1 tablet by mouth every 6 hours as needed for Pain. (Patientnot taking: Reported on 08/10/2020) 10 tablet 0 ??? diphenhydramine HCl (ALLERGY ORAL) Take by mouth daily. ??? etonogestreL (NEXPLANON) 68 mg Implant by Subdermal route Continuous (Device). Expected removal date 02/2022 ??? vitamin with [id number]-FA Tablet Take by mouth. No current facility-administered medications on file prior to visit. Social history: reports that she has never smoked. She has never used smokeless tobacco. Family medical history: No family history on file. Physical exam: Vitals: Blood pressure 125/68, pulse 82, temperature 36.7 ??C (98.1 ??F), resp. rate 16, height 165.1 cm (5' 5), weight 120.3 kg (265 lb 3.2 oz), SpO2 100 %, unknown if currently .Body mass index is 44.13 kg/m??. General: Well developed. NAD. The patient was positioned on the table prone mirian-knife with assistance from nursing. The perianal skin is clean. The left lateral seton is in good position. There is minimal surroundinginflammation. COREFO Responses 07/06/2020 07/19/2020 08/10/2020 Incontinence Scale 11.11 22.22 13.88 Social Impact Scale 25 13.88 19.44 Frequency Scale 12.5 12.5 12.5 Stool Releated Aspects 66.66 66.66 41.66 Medication Scale 16.66 41.66 25 Total COREFO Score 23.07 25.96 20.19 The COREFO questionnaire is a validated questionnaire [...] Imaging: reviewed. Impression/Plan: Cele Romero is now s/p left lateral seton placement for control of an transphincteric fistula. She has had significant reduction in the pain related to seton placement. Longer term, we discussed operative repair including fistulotomy versus lift versus endorectal advancement flaps we reviewed the benefits and risks of each procedure as well as the relatively low success rates for procedures such as a LIFT and endorectal advancement flap. The decision to make or proceed with a fistulotomy would depend on the degree of sphincter involvement. We would plan on another evaluation in about 5 months. She may make some changes to this to fit her schedule. Pavel Ramos PA-C, [facility] Division of Colon and Rectal Surgery [facility] Pager [phone] documented in this encounter Plan of Treatment Not on filedocumented as of this encounter Visit Diagnoses Diagnosis Perianal fistula Anal fistula Morbid obesity with body mass index of 4 0.0-49.9 documented in this encounter Care Teams Linux Programmer Relationship Specialty Start Date End Date Jose Velasquez MD PCP - General General Internal Medicine 12/08/17 [address] [place] [address] documented as of this encounter
--- OUTSIDE RECORDS SUMMARY | 2022-04-29 02:04 | XMS_ITS | Encounter Summary ---
:1985 Author Organization [facility] [place] [address] Care Team Providers Name Role Phone Jose [...] Expiration Date Visits Requ ested Visits Authorized [id number] 1 1 Encounter Details Date Type Department Care Team Description 04/25/2021 Surgery Main Operating Room Semaj Chatterjee MD ANORECTAL EXAM, [facility] REQUIRING ANESTHESIA, [facility] DR [address] (WRVU 1.8) [place] [address] [place] [address] [phone] Social History Tobacco Use Types Packs/Day Years [...] Sign Reading Time Taken Comments Blood Pressure 129/85 04/25/2021 9:45 AM EDT Pulse 77 04/25/2021 9:45 AM EDT Temperature 36 ??C (96.8 ??F) 04/25/2021 9:10 AM EDT Respiratory Rate 16 04/25/2021 9:45 AM EDT Oxygen Saturation 100% 04/25/2021 9:45 AM EDT Inhaled Oxygen Concentration - - [...] for postoperative pain control. ?? Please take brgj-uul-rhvzffn pain medications for post-operative discomfort. ?? Acetaminophen [...] . Division of Colon and Rectal Surgery, [facility] [address] [facility] [address] ??? ESDRAS Tame[place] [phone] ??? documented in this encounter Medications at [...] seton placement in June 2020, presents to [facility] for EUA, possible LIFT, or possible fistulotomy. Past Medical History: Diagnosis Date ??? Acne Past Surgical History: Procedure Laterality Date ??? PRO COLONOSCOPY, BIOPSY N/A 02/15/2021 COLONOSCOPY FLEXIBLE, WITH BX (WRVU 3.66) performed by Gilbert Batista MD at [facility] MAIN OR ??? PRO REMOVAL ANAL FISTULA, COMPLEX/MULTI N/A 07/11/2020 SURGICAL TREATMENT OF ANAL FISTULA COMPLEX OR MULTIPLE W\WO SETON PLACEMENT (WRVU 6.39) performed by Bry Gama MD at [facility] No current facility-administered medications on file [...] Operative Note Patient Name: Cele Romero : [id number] MR#: [id number] Case Date: 04/25/2021 Surgeon: Surgeon(s) and Role: [...] Chatterjee MD - 04/25/2021 8:11 AM EDT [facility] Operative Note Patient Name: Cele Romero : [id number] MR#: [id number] Case Date: 04/25/2021 Surgeon: Surgeon(s) and Role: [...] options for management of the fistula including termite control servicer draining seton, fistulotomy, LIFT, and endorectal advancement [...] no blood. Anoscopy was performed with the [facility] [place] retractor. Findings include normal distal rectum [...] 8:34 AM 8:34 EDT AM EDT [address] [facility] - 04/25/2021 8:34 AM EDT Specimen requisition ordered. ??Separate Pathology report to follow Akua Chatterjee MD PATHOLOGY/CYTOLOGY ORDERABLE S Performing Organization Address City/State/[place] [address] Surgical Pathology Report (04/25/2021 8:33 AM EDT) Component Value Ref Test Analysis Performed At Patholo gist Range Method Time Signature Surgical [id number] ? Location: [facility]; [facility]; A [facility] Report The signing pathologist has (i) examined the relevant preparation(s) for the [facility] specimen(s) and (ii) rendered or confirmed the diagnosis(es) . [facility] . ?Surgic al Pathology DIAGNOSIS Left buttocks external opening, excision: - Skin with fistula tract, chronic inflammation and fibrosis . Electronically signed by: ?Duarte FRANCE, Omer Verified: ??04/27/2021 16:35 ??Pathologist Performed at: ??-[facility] Dept. of Pathology, [place], [place] SPECIMEN(S) SUBMITTED A - left buttocks external opening, excision (1) CLINICAL INFORMATION anal fistula SPECIMEN PROCESSING A - Labeled/Fixative: Left buttocks external opening, fresh. Quantity/Size: Single, 1.8 x 1.3 x 1.1 cm. Tissue Description: Montiel segm ent of skin with soft tissue, fistula opening measuring 0.3 x 0.2 cm. Sections/Processing: Life Science Research Assistant sections in 1 cassette labeled A1. ??MV Specimen (Source) Anatomical Collection Method Collection Time Re ceived Time Location / / Volume Laterality 04/25/2021 8:33 AM EDT Akua Chatterjee MD PATHOLOGY/CYTOLOGY ORDERABLE S Performing Organization Address City/State/[place] [address] [facility] [address] POCT Glucose (04/25/2021 7:06 AM EDT) P athologist Signature POC Glucose 120 65 - 199 [facility] mg/dL [facility] Comment: Supplemental ranges: <140 mg/dL before meals <180 mg/dL all other times of the day Specimen Anatomical Collection Method Collection Time Receive d Time (Source) Location / / Volume Laterality Blood 04/25/2021 7:06 AM 7:06 EDT AM EDT Akua Chatterjee MD POINT OF CARE TEST ORDERABLE S Performing Organization Address City/State/[place] [address] POCT urine (04/25/2021) [facility] gist Method Time Signature POC Urine HCG [...] ordered pain medications are indicated. , Routine BUpivacaine (pf) (Marcaine) (5 Given 04/25/2021 8:52 AM EDT 30 m Ls 19- Surgical Site mg/mL) 0.5% injection ONCE PRN, Starting on Fri04/25/21 at 0852, Until Fri04/25/21 at 1650, Intra-Operative (Intra-Procedure), Routine fentaNYL (pf) (50 mcg/mL) multi-dose Given [...] 1,000 mg 1330 (Given - Provider: Joel Walls, JAELYN) 1,000 mg, Oral, EVERY 6 HOURS PRN, [...] (CAN ELED) 1011 (Given - Provider: Joel Walls, JAELYN) 12.5-25 mcg, Intravenous, EVERY 5 MIN TX N, Starting on Fri04/25/21 at 0914, Until [...] (Toradol) (15 mg/mL) injection 15 mg (CANCELED) 925 (Given - Provider: Joel Walls, JAELYN) 15 mg, Intravenous, EVERY 8 HOURS PRN, S tarting on Fri04/25/21 at 0904, Until Fri04/25/21 at 1448, Pain, moderate pain (4-6), Give for moderate pain, start with Tylenol first then give Toradol if Tylenol is not effective., PACU Recovery, Routine ondansetron (pf) (Zofran) (2 mg/mL) injection 4 mg (CANCELED) 954 (Given - Provider: Joel Walls RN) 4 [...] Routine documented in this encounter Care Teams Consumer Education Specialist Relationship Specialty Start Date End Date Jose Velasquez MD PCP - General General Internal Medicine 12/08/17 [address] [place] [address] documented as of this encounter
--- OUTSIDE RECORDS SUMMARY | 2022-04-29 02:04 | XMS_ITS | Encounter Summary ---
:1985 Author Organization [facility] [place] [address] Care Team Providers Name Role Phone Jose Velasquez MD Primary Care Provider Reason for Visit Reason Comments Follow-up Encounter Details Date Type Department Care Team Description 05/29/2021 Office Visit General Surgery at [facility] Akua Chatterjee MD Anal fistula [facility] rive [facility] [place] [address] GENERAL SURGERY [phone] [place] [phone] (Wo rk) Social History Tobacco Use Types [...] Sign Reading Time Taken Comments Blood Pressure 140/81 05/29/2021 3:56 PM EDT Pulse 86 05/29/2021 3:56 PM EDT Temperature - - Respiratory Rate 18 05/29/2021 3:56 PM EDT Oxygen Saturation 100% 05/29/2021 3:56 PM EDT Inhaled Oxygen Concentration - - Weight 120.2 kg (265 lb) 05/29/2021 3:56 PM EDT Height - - Body Mass Index 44.1 04/25/2021 6:33 AM EDT documented in this encounter Progress Notes Akua Chatterjee MD - 05/29/2021 4:00 PM EDT Colorectal Surgery Follow Up HPI: Doing well. Feels a small bump that feels like scar tissue at external seton site that bleeds with wiping. 2-3 soft and formed BMs daily. Taking benefiber daily. No pain. No incontinence. Some drainage at incision daily. No stool drainage. Reports no malodorous drainage. BP 140/81 Pulse 86 Resp 18 Wt 120.2 kg (265 lb) SpO2 100% BMI 44.10 kg/m?? Body mass indexis 44.1 kg/m??. Gen NAD The patient was examined in the prone mirian knife position with jhon assisting. The left lateral incision at the intersphincteric groove has some granulation tissue and is somewhat tender to palpation. There is no erythema, induration, or drainage. The external opening lateral to the incision has a small bump with drainage. No pain or swelling. A probe did track for a couple centimeters from the external opening. COREFO Responses 08/10/2020 09/04/2020 02/01/2021 04/10/2021 05/29/2021 Incontinence Scale 13.88 11.11 5.55 5.55 0 Social Impact Scale 19.44 13.88 16.66 16.66 19.44 Frequency Scale 12.5 12.5 12.5 12.5 12.5 Stool Releated Aspects 41.66 16.66 33.33 25 41.66 Medication Scale 25 16.66 16.66 16.66 33.33 Total COREFO Score 20.19 13.46 14.42 13.46 16.34 The COREFO questionnaire is a validated questionnaire with 27 questions to assess colorectal functional outcome. Patients are asked to consider the two week period prior before filling out the questionnaire. Category scores range from zero to 100. A total score is calculated from the categories above,also ranging from zero to 100. A higher score represents an increased level of functional disturbance. Assessment/Plan: Ms. Romero is a 35 yo woman about 4 weeks s/p LIFT procedure for transsphincteric anal fistula. Overall doing well. Still with some bleeding from granulation tissue. No obvious recurrence. Given persistent incisional wound, will plan to see her back in 4-6 weeks. If all bleeding/drainage has resolved before that visit, she can call my office to cancel. Schedulers will gone for the dayso they will contact her by phone to schedule. Akua Chatterjee MD FACS FASCRS stitching machine operator Division of Colon and Rectal Surgery [facility] Pager [phone] documented in this encounter Plan of Treatment Not on filedocumented as of this encounter Visit Diagnoses Diagnosis Anal fistula documented in this encounter Care Teams Rn Acute Dialysis Relationship Specialty Start Date End Date Jose Velasquez MD PCP - General General Internal Medicine 12/08/17 [address] [place] [address] documented as of this encounter
--- OUTSIDE RECORDS SUMMARY | 2022-04-29 02:04 | XMS_ITS | Encounter Summary ---
:1985 Author Organization [facility] Address [address] [place] [address] Care Team Providers Name Role Phone Jose Velasquez MD Primary Care Provider Reason for Visit Reason Comments Establish Care Consultation (Routine) - Closed Specialty Diagnoses / Procedures Referred By Contact Refer red To Contact General Surgery Diagnoses PERIANAL FISTULA Evelyn Espitia MD Ivatury, Srinivas J, [address] [facility] [address] [facility] [place] [address] [place] [address] Phone: Fax: Referral ID Status Reason Start Date Expiration Date Visits Requ ested Visits Authorized [id number] Closed 06/30/2020 06/30/2021 1 1 Encounter Details Date Type Department Care Team Description 07/06/2020 Office Visit General Surgery at [place] id obesity with body mass index of 40.0-49.9; [facility] [place] MD Kostas Encounter for supervision in p rimigravida, antepartum [facility] [address] GENERAL SURGERY [address] [place] [address] [phone] (Wo rk) Social History Tobacco Use Types Packs/Day Years Used Date Never Smoker Smokeless Tobacco: Never Used Sex Assigned at Date Recorded Not on file documented as of this encounter Last Filed Vital Signs Vital Sign Reading Time Taken Comments Blood Pressure 131/74 07/06/2020 9:18 AM EDT Pulse 90 07/06/2020 9:18 AM EDT Temperature - - Respiratory Rate 16 07/06/2020 9:18 AM EDT Oxygen Saturation 100% 07/06/2020 9:18 AM EDT Inhaled Oxygen Concentration - - Weight 119.9 kg (264 lb 4.8 oz) 07/06/2020 9:18 AM EDT Height 166 cm (5' 5.35) 07/06/2020 9:18 AM EDT Body Mass Index 43.51 07/06/2020 9:18 AM EDT documented in this encounter Progress Notes Valerio Ragsdale MD - 07/06/2020 9:30 AM EDT Images from the original note were not included. Colorectal Surgery Outpatient Consultation ~ Division of Colon and Rectal Surgery ~ [facility] HPI: Cele Romero is a pleasant 34 y.o. female who we were asked to see by Dr. Espitia regarding a recurrent Left perianal abscess vs. fistula. The patient's PCP is Jose Velasqeuz MD. Ms. Romero is a healthy 34 year old who has been treated at [facility] for a left buttock abscess since April 2019. Per [facility] records, she underwent a CT scan on 04/22/2019 revealing a left perianal fistula. She wastreated with Augmentin and sitz bath x 1 week and then placed on bactrim for 10days thereafter. By 05/25/2019 she underwent excision of what was described as a sebaceous cyst. She had a second excision on 07/02/2019. On 07/06/2019 she was hospitalized for IV antibiotics and underwent further I&D in the OR but we do not see an operative report. By 08/03, she was last seen in clinic when a stitch was removed. She says that it has never healed since, often blood some pus. Did not go back to Dr. Espitia as she was told it would take awhile to heal. Two weeks ago, she decided it was time for it to be healed. She had dye injected into the cavity david gauze inserted into the rectum which was inconclusive. This led to a CT scan at [facility] on 06/23/2020 showing recurrence of her perianal fistula. Currently, she has intermittent BRBPR mixed in the stool and when she wipes. She also often gets blood droplets from the skin area. She says that goes 2-3 times in the morning and once in the afternoon, it is often like rabbit pellets and other times softer, denies liquid/diarrhea. Eats more fiber if stool is hardening. No issues with constipation/straining until recently (last week) but this has resolved. Has not done sitz baths since last year. Has no issues with incontinence. She underwent a colonoscopy in [facility] in 2010 for BRBPR diagnosed with hemorrhoids. She has 1 daughter who has no medical problems. She had a 2 years ago with only a minor tear that did not require suturing. Denies any incontinence issues since. She presents today as the fistula is still bothering her and she is interested in further diagnosticand interventional workup. Review of Systems Constitutional: Negative. Respiratory: Negative. Genitourinary: Negative. Gastrointestinal: Negative. HENT: Negative. Psychiatric/Behavioral: Negative. Hematologic/Lymphatic: Negative. Allergic/Immunologic: Negative. All other systems reviewed and are negative. Past medical history: Patient Active Problem List Diagnosis Code ??? Positive test for human papillomavirus (HPV) [id number] ??? Morbid obesity with body mass index of 40.0-49.9 E66.01 ??? Encounter for supervision in primigravida, antepartum Z34.00 Past surgical history: Left buttock abscess, tonsillectomy Allergies: Patient has no known allergies. Medications: reviewed in the electronic medical record. Current Outpatient Medications on File Prior to Visit Medication Sig Dispense Refill ??? vitamin with gcfdzekl-Qz-Qrpk-FA Tablet Take by mouth. ??? cyclobenzaprine (FLEXERIL) 10 mg tablet Take 1 tablet by mouth 3 times daily as needed for Muscle spasms. No driving, no alcohol (Patient not taking: Reported on 12/08/2017) 20 tablet 0 ??? Azelaic Acid 15 % Gel Apply to face once to twice daily. (Patient not taking: Reported on 12/08/2017) 30 g 0 No current facility-administered medications on file prior to visit. Social history: reports that she has never smoked. She has never used smokeless tobacco. 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 Patient admits a family history of: none. Physical exam: Vitals: There were no vitals taken for this visit. BMI: There is no height or weight on file to calculate BMI. General Appearance: well developed and well nourished Neuro: awake, alert and oriented to person, place and time no acute distress Psych: appropriate mood and affect Eyes: extra ocular muscles intact, pupils equally reactive to light and accomodation ENT: neck supple, no lyphadenopathy noted CV: regular rate and rhythm Resp: non-labored without adventitous sounds on auscultation Lymph: no edema noted Abdomen: soft, non-tender, and not distended, no masses or organomegaly Perineal exam: Deferred Anoscopy: Not performed Rigid/flexible Sigmoidoscopy: Not performed Ext: no cyanosis Labs: reviewed. Endoscopy: reviewed. Path: reviewed. Imaging: CT Abd/Pelvis 06/23/2020 No flowsheet data found. The COREFO questionnaire is a validated questionnaire with 27 questions to assess colorectal functional outcome. Patients are asked to consider the two week period prior before filling out the questionnaire. Category scores range from zero to 100. A total score is calculated from the categories above,also ranging from zero to 100. A higher score represents an increased level of functional disturbance. Impression/Plan: Cele Romero is an otherwise healthy 34 y.o. female with recurrent L perianal fistula, interested in surgical intervention. - Continue with good bowel habits, high fiber diet, sitz baths as needed - Will book for EUA with possible fistulotomy vs. Seton etc pending findings at next available date that works with patient schedule Patient seen with Attending Surgeon Dr. Natan Ragsdale MD 07/06/2020 Colorectal Surgery Bry Gama MD - 07/06/2020 9:30 AM EDT I have seen the patient and reviewed the resident's above history and I agree with the details as written. The assessment and plan were formulated in discussion with me and I agree with them as documented. Pertinent History: History of persistent perianal drainage after incision and drainage. History of sepsis with this as well requiring hospital admission and IV antibiotics Pertinent Exam: None performed Major issues addressed: Anal fistula, needs evaluation Plan: Plan for rectal exam under anesthesia, possible fistulotomy, possible seton 15 minutes of this 30-minute visit was spent [id number] in counseling and coordination of care forsurgical planning Bry Gama MD [facility] 07/06/2020 10:47 AM lead process engineer and Chief Division of Colon and Rectal Surgery [facility] Pager #[phone] documented in this encounter Plan of Treatment Not on filedocumented as of this encounter Visit Diagnoses Diagnosis Morbid obesity with body mass index of 4 0.0-49.9 Encounter for supervision in p rimigravida, antepartum documented in this encounter Care Teams Mail Superintendent Relationship Specialty Start Date End Date Jose Velasquez MD PCP - General General Internal Medicine 12/08/17 [address] [place] [address] documented as of this encounter
--- OUTSIDE RECORDS SUMMARY | 2022-04-29 02:04 | XMS_ITS | Encounter Summary ---
:1985 Author Organization [facility] [place] [address] Care Team Providers Name Role Phone Jose [...] Expiration Date Visits Requ ested Visits Authorized [id number] 1 1 Encounter Details Date Type Department Care Team Description 02/15/2021 Hospital Encounter Same Day at [facility] Julienne Simpson MD [address] [place] [address] GASTROENTEROLOGY [place], [place] [address] (Wo rk) Social History Tobacco [...] documented in this encounter Discharge Instructions Discharge Shania Marks RN - 02/15/2021 10:53 AM EDT You [...] PHYSICIAN AT : (FOR AFTER HOURS CALL [phone] AND ASK FOR PHYSICIAN COVERING FOR YOUR DOCTOR TO BE PAGED) ENDOSCOPY/ERCP ??? Fever or chills ??? Severe abdominal pain or bloating ??? Vomiting blood ??? Difficulty breathing or swallowing ??? Pain in chest ??? Any questions or problems SMOKING CESSATION INFORMATION: ??? [place] QUITLINE: ??? [place] QUITLINE: ??? [email or web address] in Shorts If you smoke, stop now! MAKE SURE [...] ??? Positive test for human papillomavirus (HPV) [id number] ??? Morbid obesity with body mass index [...] Operative Note Patient Name: Cele Romero : [id number] MR#: [id number] Case Date: 02/15/2021 Surgeon: Surgeon(s) and Role: [...] 10:57 02/15/2021 AM EDT 10:57 AM EDT [facility] - 02/15/2021 10:57 AM EDT Specimen requisition ordered. ??Separate Pathology report to follow Gilbert Batista MD PATHOLOGY/CYTOLOGY ORDERABLE S Performing Organization Address City/State/[place] [address] [facility] [address] Specimen to Pathology (02/15/2021 10:57 AM EDT) Specimen Anatomical Collection Method Collection Time Receive d Time (Source) Location / / Volume Laterality AP Specimen 02/15/2021 10:57 02/15/2021 AM EDT 10:57 AM EDT Narrative [facility] - 02/15/2021 10:57 AM EDT Specimen requisition ordered. ??Separate Pathology report to follow Gilbert Batista MD PATHOLOGY/CYTOLOGY ORDERABLE S Performing Organization Address City/State/[place] [address] Surgical Pathology Report (02/15/2021 10:56 AM EDT) Component Value Ref Test Analysis Performed At [facility] gist Range Method Time Signature Surgical [id number] ? Location: [facility]; [facility]; A [facility] Report The signing pathologist has (i) examined the relevant preparation(s) for the [facility] specimen(s) and (ii) rendered or confirmed the diagnosis(es) . HOSPITAL LABORATORY . ?Surgic al Pathology DIAGNOSIS A - Terminal ileum non-targeted biopsies: Ileal mucosa within normal limits. B - Colon non-targeted biopsies: Colonic mucosa within normal limits. CR-PX Electronically signed by: ?Leticia Nathan MD Verified: ??02/20/2021 23:24 ??Pathologist Performed at: ??-[facility] Dept. of Pathology, [place], [place] SPECIMEN(S) SUBMITTED A - Terminal ileum [...] Organization Address City/State/[place] [address] COLONOSCOPY (02/15/2021 10:30 AM EDT) [facility] Method Time Signature COLONOSCOPY [facility] Endoscopy Procedure Date: 02/15/2021 10:30 AM ? Patient Name: Cele Romero ? Date of : 1985 ? Age: 35 ? Order #: [id number] ? Instrument Name: [id number] ? Procedure: ? Colonoscopy Indications: ? Suspected [...] Th e ? colonoscopy was performed wit hout ? difficulty. The patient randi ated the [...] consider consultation in IBD Center ? at [facility] for consideration of ? additional diagnostic tests [...] Phon e Number PROVATION POCT urine (02/15/2021) [facility] gist Method Time Signature POC Urine HCG Negative Negative - Negative POC Control Internal Controls Acceptable Specimen (Source) Anatomical Location Collection Method / Collectio n Time Received Time / Laterality Volume 02/15/2021 Gilbert Batista MD POINT OF CARE TEST ORDERABLE S documented in this encounter Visit Diagnoses Not on filedocumented in this encounter Active and Recently Administered Medications Care Teams Human Resources Hr Representative Relationship Specialty Start Date End Date Jose Velasquez MD PCP - General General Internal Medicine 12/08/17 [address] [place] [address] documented as of this encounter
--- OUTSIDE RECORDS SUMMARY | 2022-04-29 02:04 | XMS_ITS | Encounter Summary ---
:1985 [place] [address] Care Team Providers Name Role Phone Jose Velasquez MD Primary Care Provider Encounter Details Date Type Department Care Team Description 07/06/2020 Orders Only General Surgery at [facility] June Strong, [place] [address] Social History Tobacco Use Types Packs/Day Years Used Date Never Smoker Smokeless Tobacco: Never Used Sex Assigned at Date Recorded Not on file documented as of this encounter Progress Notes June Brooks RN - 07/06/2020 11:51 AM EDTSummary: ERAS Pre-Op Images from the original note were not included. [facility] Colorectal Surgery Enhanced Recovery After Surgery (ERAS) Pathway Patient Instructions ?? Reducing stress on your body leads to rapid recovery of your bodily functions, with fewer post-operative complications. ?? Expect to go home in 3-5 days depending on your operation, reason for surgery, and general medical condition. ?? Stays longer than 2 week are uncommon (<5%). ?? This program is designed to help you recover faster and get back to doing the things you like to do. Before Surgery Sign up fr access to [employer], our patient portal at [email or web address]. This lets you or a family member (with your permission)access information in your electronic medical record. Once you are signed up, you will get access after surgery to eSyM--a symptom tracker that keeps your surgery team informed about your recovery. ?? Avoiding dehydration will help you feel better going into surgery. 1. The day before surgery: Clearfast is a maltodextrin-sugar containing energy supplement. At noon, drink 1 bottle of ClearFast (you will be provided with the ClearFast at pre-anesthesia/pre-admission testing). 2. The night before surgery: just before bedtime, drink 1 bottle of ClearFast After that, please continue to drink plenty of Gatorade throughout the night to avoid dehydration from your bowel prep. 3. The morning of surgery: drink last bottle of ClearFast no later than 2 hrs prior to the scheduledsurgery start time (for example if you are scheduled for surgery at 7:30am; drink 1 bottle of ClearFast no later than 5:30am). Please be aware that if you drink this less than 2 hours before your surgery starts, your surgery may be delayed or canceled. Pre-Operative Wash- You received 2 packets of Hibiclens?? anti-bacterial soap from our clinic. Use this soap to completethe following steps to wash before your surgery. If you have misplaced this soap Chlorhexidine Gluconate (CHG) 4% is a special chemical found in soaps such as Hibiclens and other brands which can be purchased at a drug store. Washing Instructions: Step 1: Wet your entire body. Step 2: Use a packet of Hibiclens soap to wash your entire body from your neck to your feet, avoiding genitals. Be sure to wash for 3 minutes at your surgical area along with under finger and toe nails. Step 3: Rinse really well, get all of the soap off of your body On the morning of your surgery: ??? Repeat steps 1-3 once more using the remaining packet of Hibiclens soap. Please note: 1. Do not apply the soap to your head, face, eyes, inside the nose or ears or in the genital area. 2. For external use only. Do not use on open wounds. 3. Stop using if redness or irritation develops. 4. Do not drink the soap. If swallowed, call Poison Control right away: [phone]. 5. Do not shave the day before or day of your surgery. 6. After showering, do not put lotion, cream or powder on your body. 7. Be sure to wear clean pajamas after your shower on the evening before your surgery and sleep in clean sheets. 8. Wear clean clothes on the morning of surgery. Activity - Get strong for surgery At home before surgery 1. If you presently do not exercise at least 20 minutes three times a week, we strongly encourage you to start to as soon as possible, by walking for 15 minutes daily. In the hospital after surgery 1. After surgery, you will be instructed on breathing exercise, to keep the lungs open and clear, using an incentive spirometer to be done alteast 10 times per hour while awake. 2. Expect to cough. Coughing is good and helps to keep the lungs open and clear. ?? Use a pillow to brace your abdomen when coughing to minimize discomfort. 3. Plan on getting out of bed into the comfortable chair in your room the night of surgery for at least 2 hours. 4. Plan on walking around the nursing unit more than once the night of surgery. 5. Day after surgery: out of bed for at least 8 hours; if you are awake, you should be in the chair. ?? Hospital beds are best for sleeping only. 6. Walk around the nursing unit at least 6 times daily. Walking encourages bowel activity and prevents blood clots (deep vein thrombosis - DVTs). If you are high-risk for DVT's you will be sent home with preventative medication for a total of 28 days At home after surgery 1. Make sure you walk outside at least 4 times per day 2. You should be able to climb a flight of stairs before you leave the hospital 3. No driving while in pain or taking pain medication 4. No strenuous activity or heavy lifting (usually nothing greater than 10 lbs or a gallon of milk) for 4-6 weeks after surgery Diet, Nutrition, & Wound Healing At home before surgery 1. Avoid alcohol until after you are recovered from surgery 2. Quit smoking as soon as possible and at least 4 weeks before surgery 3. Eat healthy: make sure to eat plenty of protein (meat, fish, chicken) in the weeks leading up to your surgery ?? if you have been losing weight please take a nutritional supplement three times per day starting today ?? examples include Ensure High Protein, Boost Plus, or [place] Instant Breakfast mixed in whole milk +/- ice-cream In the hospital after surgery 1. Early feeding after surgery has been proven to be safe and promotes bowel activity. 2. Chewing gum has been proven to keep the bowel awake & avoid ileus. 3. We encourage you to start drinking clear liquids as soon as awake in the recovery room. 4. You will receive Boost Breeze nutritional supplements twice daily starting the night of surgery. These may be changed to full strength Boost Plus or Ensure High-Protein after you have eaten. 5. Full portions of regular diet (or low fiber diet if you have an ileostomy) are usually given the morning after surgery. 6. Listen to your body: if belching, bloated, nauseated, excessive heartburn, regurgitating/brashwater, or uncomfortable then limit oral intake of food and liquid. At home after surgery 1. Make sure you are getting plenty of protein (fish, chicken, meat, soy, protein shakes) in your diet. 2. We recommend taking a nutritional supplement (Boost, Ensure, [place] Instant Breakfast) for several weeks after surgery to make sure you are not losing weight while your body is healing. 3. Chew food thoroughly, smaller portions more often, take with plenty of liquid. 4. Drink more liquids than usual to avoid constipation and dehydration. Nausea Prevention 1. Your bowel prep, general anesthesia, some medications, and your surgery may or may not result in nausea. Approximately 10% of patients have post-operative nausea and/or vomiting. 2. We will routinely prescribe medication to prevent nausea. 3. While in the hospital, nausea treatment medications will be given to you if you need them. Pain Control 1. Two-days before surgery (48 hours) please start taking 2 tablets of Extra Strength Tylenol (acetominophen) three times per day. This builds up Tylenol blood levels so that you have less discomfort after surgery If you have liver problems (cirrhosis)-do not take tylenol. 2. After you check into same day surgery the morning of surgery, you may receive pills to prevent post-surgery discomfort (Tylenol, Celebrex, & Gabapentin). 3. The morning of surgery patient meets Anesthiology Team and discuss nerve blocks, epidural/spinal anesthesia. 4. Depending on the size of incision and other factors expect a combination of an abdominal nerve block, epidural/spinal anesthesia, scheduled non-narcotic pain pills, and a mild narcotic pain pill (Tramadol). ?? only as needed: a narcotic pain button and/or narcotic pills. 5. You should try to avoid/limit narcotics if your pain is otherwise well- controlled because narcotics: ?? slow down the bowels. ?? are potentially addictive if taken when not having pain. ?? cause nausea. 6. If your pain is not well-controlled you may receive narcotics to make you more comfortable ?? request anti-nausea medicine early if needed. ?? If taking oral narcotics then you may need a stool softener. Tubes and Drains 1. Your intravenous (IV) fluids will usually be turned off the morning after surgery. 2. Your urinary catheter will usually be removed morning after surgery. ?? People who may need the Brown catheter longer include patients who have bladder surgery, prostatesurgery or prostate problems, an epidural catheter, or pelvic surgery. 3. In some rectal surgery patients a pelvic drain is used; this is usually removed just before you leave the hospital. 4. If cami are used they are usually removed two weeks after surgery in 4L by the General Surgerynurses When Can I go home? ?? when you are eating and drinking ?? when you are urinating without a catheter ?? when bowels are working (meaning passing gas or stool) ?? when your pain is controlled with oral medication ?? Tylenol and ibuprofen (with food) every 6 hours, but stagger the doses so that you are taking something every 3 hours (tylenol at 12:00, ibuprofen at 3:00, tylenol at 6:00, ibuprofen at 9:00, etc) around the clock (assuming no allergy/contraindications to either) ?? do not forget to keep on this regimen when you go home! ?? Tramadol or Oxycodone only for breakthrough pain that is not at a tolerable level ?? when you have been educated about signs and symptoms of possible complications ?? if applicable: independent stoma self-care and visiting nurse arrangements in place ?? a Discharge Seo Marketing Specialist will arrange visiting nurses and other special needs. ?? follow-up appointment with Dr. Gama in 4-5 weeks Strategies for recovery. Please Help Us Help You Recover! 1. Sign up for [facility]: Please sign up for [facility], our patient portal, by going to [email or web address]. Your [facility] access number is . Technical assistance is available at [phone] or [phone]. If a industrial waste treatment technician does not answer when you call, you will first be directed back to the web site to submit an inquiry electronically. However, you can also leave a voicemail after the beep at the end of the prerecorded message. A industrial waste treatment technician then will call yo back as soon as possible. [facility] lets you or a chosen family member check your labs, appointments, prescriptions, and correspondwith your care team. You can access [facility] from any web-enabled desktop/laptop/tablet or smart phone. 2. Report your symptoms to us using eSyM: Once you are signed up for [facility], you will have access to eSyM through [facility] after your surgery eSyM asks you to report your symptoms and helps us track your recovery. The information you report helps us monitor your progress and reach out to you if necessary. ESyM also gives you access to tip sheets that provide guidance for coping with specific post-op symptoms. QUESTIONS about accessing eSyM after your surgery? Please contact: PARI ZAMORA [phone] [email or web address] Your ERAS Surgery Team Before and after your hospital stay (4L team) 1. Bry Gama MD, Attending Colorectal Surgeon, Pavel ECHEVARRIA 2. 4L General Surgery Nurses (Debbie, Clara, Ana Luisa, Denise, Rose & June): [phone] 3. Surgery schedulers: Rachele: [phone] 4. Scheduling: (various): [phone] 5. Laxmi Raya, Nuclear Design Engineer to Dr. Gama ?? [phone] During your hospital stay (Rounding team) 1. General Surgery Chief Resident (rotates) 2. General Surgery Enrober Tender (rotates) 3. [employer] 3rd year Medical Student (rotates) 4. Carol MCCLURE assisting 5. Dr. Bry Gama (Dr. Gonzalez Chatterjee or Dr. Akua Chatterjee if covering for Dr. Gama) supervising Ostomy Nurses: Gwen Beckford R.N., Rut Cedeno R.N, Zahraa Blanco R.N., Diandra Funes RN, Suzanne Madrigal RN Where to Find Clearfast We will be providing you with the Clearfast. You will receive the Clearfast when you visit pre-anesthesia/pre-admission testing (PAT) here at [facility]. Please call pre-admission testing at [phone] if you did not receive it at the time of your visit. When calling please let them know you are an ERAS pt of Dr. Gama's. Resources for questions: ?? For medical question call the General Surgery Nurses: [phone] ?? We strongly encourage emailing questions or concerns online via [employer] (please do not use regular e-mail, it is un-reliable) and a Nurse or Dr. Gama will get back to you usually within 1 or 2 business days. ?? For scheduling questions call Laxmi Raya: [phone] ?? If you are interested in learning more about ERAS we recommend Google searching for ERAS YouTube ERAS Colorectal Surgery as well as [email or web address] Checklist: [ ] Eat lots of protein [ ] Exercise - start TODAY [ ] ClearFast, 3 bottles (will be given to you) [ ] small pillow for coughing [ ] comfortably clothes/robe and slippers to wear while in the hopsital [ ] Start Tylenol 2 days before surgery documented in this encounter Plan of Treatment Not on filedocumented as of this encounter Visit Diagnoses Not on filedocumented in this encounter Care Teams Veterans' Coordinator Relationship Specialty Start Date End Date Jose Velasquez MD PCP - General General Internal Medicine 12/08/17 [address] [place] [address] documented as of this encounter
--- OUTSIDE RECORDS SUMMARY | 2022-04-29 02:04 | XMS_ITS | Encounter Summary ---
:1985 Author Organization [facility] [place] [address] Care Team Providers Name Role Phone Jose Velasquez MD Primary Care Provider Reason for Visit Reason Comments Ultrasound Consultation (Routine) - Closed Specialty Diagnoses / Procedures Referred By Contact Refer red To Contact Obstetrics and Diagnoses OBESITY Yael Alonso CNM [facility] Manager Outpatient 5l Gynecology [id number] [place] [phone] Phone: Fax: Referral ID Status Reason Start Date Expiration Date Visits Requ ested Visits Authorized [id number] Closed 11/20/2017 11/20/2018 1 1 Encounter Details Date Type Department Care Team Description 12/08/2017 Procedure visit Obstetrics and Pschirrer, E Obesity af fecting Gynecology at [facility] MD Mary Lou in second [facility] & [phone] GYNECOLOGY [phone] [place], [place] [address] Social History Tobacco Use Types Packs/Day Years Used Date Never Smoker Smokeless Tobacco: Never Used Sex Assigned at Date Recorded Not on file documented as of this encounter Last Filed Vital Signs Vital Sign Reading Time Taken Comments Blood Pressure 154/84 12/08/2017 8:33 AM EST Pulse - - Temperature - - Respiratory Rate - - Oxygen Saturation - - Inhaled Oxygen Concentration - - Weight 127.6 kg (281 lb 3.2 oz) 12/08/2017 8:33 AM EST Height - - Body Mass Index - - documented in this encounter Progress Notes Karina Bronw MD - 12/08/2017 9:15 AM EST Diagnosis/Maternal Medicine Consult Note Cele Romero is a 32 y.o. year old female who is at 19w2d gestation. She is seen in consultation at the request of Yael Alonso CNM for evaluation of anatomy. She was seen today for maternal- medicine consultation and ultrasound evaluation. Review of Systems Constitutional:feels well Movement: normal Contractions: none Leaking: None Bleeding: None Patient Active Problem List Diagnosis Date Noted ??? Positive test for human papillomavirus (HPV) 09/22/2017 ??? Encounter for supervision in primigravida, antepartum 09/22/2017 ??? Morbid obesity with body mass index of 40.0-49.9 08/10/2015 Past Medical History: Diagnosis Date ??? Acne No past surgical history on file. No family history on file. Social History Occupational History ??? Not on file. Social History Main Topics ??? Smoking status: Never Smoker ??? Smokeless tobacco: Never Used ??? Alcohol use Not on file ??? Drug use: Not on file ??? Sexual activity: Not on file OB History Para Term AB Living 1 SAB TAB Ectopic Multiple Live Births # Outc Date GA Lbr Colin/2nd Wgt Sex Del Anes PTL Lv 1 Current Current Outpatient Prescriptions Medication Sig Dispense Refill ??? vitamin with [id number] Tablet Take by mouth. ??? cyclobenzaprine (FLEXERIL) 10 mg tablet Take 1 tablet by mouth 3 times daily as needed for Muscle spasms. No driving, no alcohol (Patient not taking: Reported on 12/08/2017) 20 tablet 0 ??? Azelaic Acid 15 % Gel Apply to face once to twice daily. (Patient not taking: Reported on 12/08/2017) 30 g 0 No current facility-administered medications for this visit. No Known Allergies Ultrasound Date: 12/08/2017 Amniotic fluid volume normal Presentation breech Placenta posterior Growth appropriate for gestational age anatomy appears normal Physical Exam BP 154/84 (BP Location (NBP): Right arm, Patient Position: Sitting, BP Cuff Sizes: Adult (25-34 cm)) Wt 127.6 kg (281 lb 3.2 oz) General: alert, well appearing, in no apparent distress, oriented to person, place and time, overweight HEENT: normocephalic, atraumatic Neurologic:alert, oriented, normal speech, no focal findings or movement disorder noted Psychiatric: Affect is Appropriate. Assessment and Recommendations: 32 y.o. year old female at 19w2d weeks gestation, referred for counseling regarding anatomy, which appears normal on today's ultrasound. Due to two moderate risk factors for preeclampsia, primigravida and obesity, Ms. Romero should take low dose aspirin daily for prophylaxis. We did not discuss this at her appointment today. I appreciate the opportunity to be involved in this patients care, and am available if further questions should arise. Karina BROWN MD 12/08/2017 Cc: Yael Alonso, [address] [place] [address] , with copy of ultrasound report documented in this encounter Plan of Treatment Not on filedocumented as of this encounter Visit Diagnoses Diagnosis Obesity affecting in second tr imester documented in this encounter Care Teams Wellness Instructor Relationship Specialty Start Date End Date Jose Velasquez MD PCP - General General Internal Medicine 12/08/[address] [place] [address] documented as of this encounter
--- OUTSIDE RECORDS SUMMARY | 2022-04-29 02:04 | XMS_ITS | Encounter Summary ---
:1985 [place] [address] Care Team Providers Name Role Phone Jose Velasquez MD Primary Care Provider Reason for Visit Auth/Cert Specialty Diagnoses / Procedures Referred By Contact Refer red To Contact Diagnoses anal fistula Procedures PRO REMOVAL ANAL FISTULA, COMPLEX/MULTI SURGICAL TREATMENT OF ANAL FISTULA COMPLEX OR MULTIPLE W\WO SETON PLACEMENT (WRVU 6.39) Referral ID Status Reason Start Date Expiration Date Visits Requ ested Visits Authorized [id number] 1 1 Encounter Details Date Type Department Care Team Description 07/11/2020 Surgery Outpatient Surgery Isabel Avila, Meliza URGICAL TREATMENT OF [place] Maame Webster MD ANAL FISTULA COMPLEX OR [facility] MULTIPLE W\WO SETON [facility] [address] PLACEMENT (WRVU 6.39) [facility] [place] [address] [place] [id number] [phone] (Wo rk) Social History Tobacco Use Types Packs/Day Years Used Date Never Smoker Smokeless Tobacco: Never Used Sex Assigned at Date Recorded Not on file documented as of this encounter Last Filed Vital Signs Vital Sign Reading Time Taken Comments Blood Pressure 104/62 07/11/2020 1:45 PM EDT Pulse 80 07/11/2020 1:45 PM EDT Temperature 36 ??C (96.8 ??F) 07/11/2020 12:54 PM EDT Respiratory Rate 16 07/11/2020 1:45 PM EDT Oxygen Saturation 92% 07/11/2020 1:45 PM EDT Inhaled Oxygen Concentration - - Weight 119.7 kg (264 lb) 07/11/2020 11:50 AM EDT Height 165.1 cm (5' 5) 07/11/2020 11:50 AM EDT Body Mass Index 43.93 07/11/2020 11:50 AM EDT documented in this encounter Discharge Instructions Discharge InstructionsNaveed Christensen RN - 07/11/2020 1:28 PM EDT General Anesthesia Discharge Instructions Go home and rest. You may be sleepy for several hours. Take it easy as sudden position changes may cause nausea and/or dizziness. Use caution on stairs. Follow a light to regular diet as tolerated today. If nausea occurs, start with clear liquids, and progress slowly to a regular diet. Do not drive, operate machinery, drink alcoholic beverages or make any legal decisions after having general anesthesia. The medications given change your reaction time and alter your judgement. IV site -- slight redness is normal, you can use warm compresses. If tenderness and redness increases or foul drainage occurs, please contact your M.D. Patients who have had endotracheal tubes/LMA (tubes used by the anesthesia staff to ensure a safe airway during your operation) may have a sore throat. This is normal and cold liquids or soothing lozenges will help ease this discomfort. Narcotic pain medications can cause constipation, please ask the surgeons office what they recommendfor prevention of this. Some non-pharmaceutical means of constipation prevention include increasing intake of fluids, eating more fruits and vegetables as well as fruit juices. If you are uncomfortable and/or unable to urinate within 8 hours of discharge and it is before 5 pm,call your physician. If it is after 5pm go to the closest emergency room or call the hospital power plant operator at [phone] and ask for physician ecological economist covering for your physician. Questions or problems after 5pm or on a weekend: Call the [facility] power plant operator at and ask for the physician ecological economist covering for your doctor. At 1200 pm you received 1000 mg of acetaminophen- Your next dose should not be taken before 8 hours have passed. Next dose not before- 8 pm You should not take more than a total of 3000 mg of acetaminophen in a 24 hour period. You received a dose of IV Ketorolac (Motrin/Ibuprofen) at 1:20 pm, DO NOT take Motrin/Ibuprofen until 7:20 pm. Patient InstructionsIsabel Avila MD - 07/11/2020 12:47 PM EDT DIVISION OF COLON & RECTAL SURGERY [...] for postoperative pain control. ?? Please take yeuc-too-lvylftm pain medications for post-operative discomfort. ?? Acetaminophen [...] . Division of Colon and Rectal Surgery, [facility] [address] ??? [place] [address] ??? documented in this encounter Medications at Time of Discharge Medication Sig Dispensed Refills Start Date End Date etonogestreL (NEXPLANON) by Subdermal route 0 68 mg Implant Continuous (Device). Expected removal date 02/2022 diphenhydramine HCl Take by mouth daily. 0 02/15/2021 (ALLERGY ORAL) vitamin with Take by mouth. 0 02/15/2021 [id number] Tablet Azelaic Acid 15 % Apply to face once 30 g 0 01/15/2013 08/10/2020 GelIndications: Acne to twice daily. documented as of this encounter Progress Notes Naveed Christensen RN - 07/11/2020 2:21 PM EDT Discharge instructions and medications reviewed with patient and mom, Yael. All questions answered and written copy sent home with patient. Sitz bath kit given as well as gauze. PIV removed. Patient ambulated to car for discharge accompanied by [facility] staff member. Naveed Christensen RN - 07/11/2020 1:15 PM EDT Pt complained of a sore area on the inside of her bottom lip. There is a small area of bruising and open skin toward the right corner of her lip. Anesthesia came to bedside to assess. Lip balm to be applied for comfort. No other interventions needed. Araceli Arvizu RN - 07/10/2020 3:29 PM EDT During this call the patient was questioned regarding travel outside of the [place] states, fever, cough, SOB or other illness in the last 14 days. Patient also questioned regarding any exposure toa COVID positive person, a person awaiting results from testing or a person in quarantine. Patient denies any positive responses to the above questions for themselves or their escort for the day of procedure. Patient informed of procedure to be followed upon arrival to the [facility]. That being, COVID questions will be asked again, temperature will be taken, patient and caregiver/tank driver will be given a mask to wear the entire time they are in the [facility] building. COVID test completed: Result of test:n/a Action taken: Merlene Tafoya RN - 07/06/2020 4:54 PM EDT During this call the patient was questioned regarding travel outside of [place] states, fever, cough, SOB or other illness in the last 14 days. Patient also questioned regarding any exposure to a COVID positive person, a person awaiting results from testing or a person in quarantine.Patient deniesany positive responses to the above questions for themselves or their escort for the day of procedure. Patient informed of procedure to be followed upon arrival to the [facility]. That being, COVID questions will be asked again, temperature will be taken, patient and caregiver/tank driver will be given a mask to wear the entire time they are in the [facility] building. documented in this encounter H&P Notes Isabel Avila MD - 07/11/2020 11:54 AM EDT Patient Name: Cele Romero Patient Age: 34 y.o. Birthdate: 1985 Admit date: 07/11/2020 Attending Physician: Isabel Avila MD The patient's history and physical exam have been reviewed and completed. There has been no intervalchange from that of the pre-operative history and physical exam done within the last 30 days. Heart:RRR, Lungs: Clear Plan: Rectal exam under anesthesia, possible seton, possible fistulotomy Isabel Avila MD [facility] 07/11/2020 11:55 AM lining presser and Chief Division of Colon and Rectal Surgery [facility] Pager #[phone] documented in this encounter Miscellaneous Notes Op Note - Isabel Avila MD - 07/11/2020 12:44 PM EDT [facility] Operative Note Patient Name: Cele Romero : [id number] MR#: [id number] Case Date: 07/11/2020 Surgeon: Surgeon(s) and Role: * Isabel Avila MD - Primary Preoperative diagnosis: anal fistula Postoperative diagnosis: anal fistula Procedure(s) (LRB): SURGICAL TREATMENT OF ANAL FISTULA COMPLEX OR MULTIPLE W\WO SETON PLACEMENT (WRVU 6.39) (N/A) Anesthesia: General Estimated Blood Loss: * No values recorded between 07/11/2020 12:30 PM and 07/11/2020 12:40 PM * Specimens removed during surgery: None Drains: * No LDAs found * Surgical Closure: Other Than Primary Closure - deep and superficial layers are left completely open during original surgery Disposition: awakened from anesthesia, extubated and taken to the recovery room in a stable condition, having suffered no apparent untoward event. Condition: doing well without problems (Please see the Surgical Encounter Summary for any Implant and Specimen details pertinent to this patient.) HPI/Surgical Indications: 34 year old woman with persistent anal drainage. History of perianal abscess. Here for exam under anesthesia Procedure Description: OPERATIVE FINDINGS: The patient had an external fistula opening in the left lateral position approximately 5mm from the anal verge. The internal opening was located in the radial position. The fistula tract involved skin and subcutaneous tissue and internal sphincter muscle. The distal rectal mucosa was normal. PROCEDURE IN DETAIL: After informed consent was obtained, the patient was brought to the operating room, where general anesthesia was induced without difficulty. The patient was flipped into a well-padded prone jackknife position, with the buttocks taped apart. The perianal region was sterilely prepped and draped in the usual fashion. An external exam revealed a left lateral external opening. A Tovar bivalve retractor was inserted into the anal canal and the operative findings are noted above. A fistula probe was inserted into the external opening in the left lateral position and tracked easily into the internal opening in the radial. Palpation of the tissue on top of the probe revealed a deep fistula tract that involved skin, subcutaneous tissue, and internal sphincter (15-20%). Therefore, a blue vessel loop was placed as a seton and secured with silk sutures. The perianal area was sounded using a 25G needle and syringe for occult abscesses and there were none. An anal block of 20 cc of Exparel mixed with 20cc of injectable saline for prolonged postoperative analgesia. Antibiotic ointment and sterile gauze dressing was applied. The patient tolerated the procedure well, without complications. Estimated blood loss was 1 mL. I was present and scrubbed for the entire duration of the operation. The patient was returned to the supine position, extubated in the Operating Room and brought to the Recovery Room in stable condition. This fistula is amenable to future fistulotomy if patient understands the potential risk of minor incontinence. Infection Bundle used? N/A Attestation: Case Date: 07/11/2020 I performed this procedure without the involvement of a resident. ISABEL AVILA MD 07/11/2020 documented in this encounter Plan of Treatment Not on filedocumented as of this encounter Procedures Procedure Name Priority Date/Time Associated Diagnosis Comme nts SURGICAL TREATMENT OF Yes 07/11/2020 12:15 PM EDT anal fis augustin ANAL FISTULA COMPLEX OR MULTIPLE W\WO SETON PLACEMENT (WRVU 6.39) documented in this encounter Visit Diagnoses Not on filedocumented in this encounter Administered Medications Inactive Administered Medications - up to 3 most recent administrations Medication Order MAR Action Action Date Dose Rate Site acetaminophen (Tylenol) tablet Given 07/11/2020 11:53 AM EDT 1,0 00 mg 1,000 mg 1,000 mg, Oral, ONCE, 1 dose, On Fri07/11/20 at 1200, Administer with SIP of H2O only., Day of Surgery (Day of Procedure), Routine bacitracin-polymyxin b Given 07/11/2020 12:40 PM 1 Tube 19- Surgical Site (POLYSPORIN) ointment EDT ONCE PRN, Starting on Fri07/11/20 at 1240, Until Fri07/11/20 at 1627, Intra-Operative (Intra-Procedure) BUpivacaine liposome (PF) Given 07/11/2020 12:32 PM 20 mLs 19- Surgical Site (EXPAREL) 1.3 % (13.3 mg/mL) EDT injection for infiltration ONCE PRN, Starting on Fri07/11/20 at 1232, Until Fri07/11/20 at 1627, Intra-Operative (Intra-Procedure) fentaNYL 50 mcg/mL multi-dose injection 12.5-25 mcg, Intravenous, EVERY 5 MIN NH N, Starting on Fri07/11/20 at 1242, Until Fri07/11/20 at 1627, Pain, Give 12.5 mcg every 5 minutes PRN for mild to moderate pain (1-5) Give 25 mcg every 5 minutes P RN for moderate to severe pain (6-10). Hold for respiratory rate less than 10 per mi nute. Maximum dose 250 mcg over one hour. If ordered with hydromorphone or morphin e, give hydromorphone or morphine first and use fentanyl for breakthrough pain., Day of Surgery (D ay of Procedure), Routine ketorolac (TORADOL) 30 mg/mL (1 mL) inje ction Given 07/11/2020 1:20 PM EDT 15 mg 1 dose, Starting on Fri07/11/20 at 1320, Until Fri07/11/20 at 1320, NAVEED SAUER: cabinet override lactated ringers infusion New Bag 07/11/2020 12:16 PM EDT 1,000 mL, at 100 mL/hr, Intravenous, CONTINUOUS, Starting on Fri07/11/20 at 1200, Until Fri07/11/20 at 1627, Day of Surgery (Day of Procedure) lidocaine (XYLOCAINE) 10 mg/mL (1 %) inj ection 3 mg 3 mg (0.3 mL), Subcutaneous, ONCE PRN, 1 dose, Startin g on Fri07/11/20 at 1142, Until Fri07/11/20 at 1627, for discomfor t with PIV insertion, Day of Surgery (Day of Procedure), Routine naloxone (NARCAN) injection 0.04 mg 0.04 mg, Intravenous, EVERY 5 MIN PRN, S tarting on Fri07/11/20 at 1242, Until Fri07/11/20 at 1627, Opioid Reversal, for respiratory rate less than 6 or unresponsive., May repeat every 5 minutes to increase respiratory rate. DO NOT exceed 0.12 mg total dose. Notify anesth esia immediately if administered., Day of Surgery (Day of Procedure), Routine ondansetron (ZOFRAN) injection 4 mg 4 mg, Intravenous, EVERY 30 MIN PRN, Starting on Fri at 1242, Until Fri07/11/20 at 162, Nausea, May repeat 4 mg once in 30 mi nutes. If multiple antiemetics ordered, use ondansetron fir st and if ineffective use prochlorperazine second and if ineffective use promethazine, Day of Eva claudine (Day of Procedure) promethazine (PHENERGAN) injection 12.5 mg 12.5 mg, Intravenous, EVERY 30 MIN PRN, 2 doses, Starting on Fri07/11/20 at 1242, Until Fri07/11/20 at 1627, Nausea, VESICANT - Dilute w ith a minimum of 10 mL saline. LARGE VEIN only. Inject over 10 minutes into the farthest port of a running IV infusion. Remain with the patient and STOP infusion immediately if patient reports burning. Avoid extravasation. If multiple antiemetics are ordered, use ondansetron first and if ineffective use prochlorperazine second and if ineffective use promethazine., Day of Surgery (Day of Procedure), Routine sodium chloride 0.9 % (flush) flush 5-20 mL 5-20 mL, Intravenous, EVERY 1 MIN PRN, S tarting on Fri07/11/20 at 1142, Until Fri07/11/20 at 1627, flush, Flush pertains t o all indwelling lines. Flush per protocol found in the job aid using the link provided on this m edication record., Day of Surgery (Day of Procedure), Routine documented in this encounter Active and Recently Administered Medications Times are shown in EDT. Scheduled Medication Order 07/09/2020 07/10/2020 07/11/2020 acetaminophen (Tylenol) tablet 1,000 mg (COMPLETED) 1153 (Given - Provider: Carol Toro RN) 1,000 mg, Oral, ONCE, 1 dose, Fri 0 at 1200, Administer with SIP of H2O only., Day of Surgery (Day of Procedure), Routine BUpivacaine liposome (PF) (EXPAREL) 1.3 % (13.3 mg/mL) injection for infiltration 266 mg 1200 (Due) 266 mg, Infiltration, ONCE, 1 dose, Fri07/11/20 at 1200, Day of Surgery (Day of Procedure), Routine Continuous Medication Order 07/09/2020 07/10/2020 07/11/2020 lactated ringers infusion 1216 ( New Bag - Provider: Danny Barba MD)1259 (Stopped - Provider: Loren Garrison CRNA) 1,000 mL, at 100 mL/hr, Intravenous, CON TINUOUS, Starting Fri07/11/20 at 1200, Until Fri07/11/20 at 1627, Day of Surgery (Day of Procedure) PRN Medication Order 07/09/2020 07/10/2020 07/11/2020 acetaminophen (Tylenol) tablet 1,000 mg 1,000 mg, Oral, EVERY 8 HOURS PRN, Start ing Fri07/11/20 at 1316, Until Fri07/11/20 at 1627, Pain, Maximum dose of acetaminophen is 4000 mg from all sources in 24 hours. When ordered for pain, acetaminop hen should be given even when other orde red pain medications are indicated. , PACU Recovery, Routine bacitracin-polymyxin b (POLYSPORIN) ointment (CANCELED) 1240 (Given - Provider: Isabel Avila MD) ONCE PRN, Starting Fri07/11/20 at 1240, Until Fri07/11/20 at 1627, Intra- Operative (Intra-Procedure) BUpivacaine liposome (PF) (EXPAREL) 1.3 % (13.3 mg/mL) injection for infiltration (CANCELED) 1232 (Given - Pr ovider: Isabel Avila MD) ONCE PRN, Starting Fri07/11/20 at 1232, Until Fri07/11/20 at 1627, Intra- Operative (Intra-Procedure), Routine fentaNYL 50 mcg/mL multi-dose injection 12.5-25 mcg, Intravenous, EVERY 5 MIN NH N, Starting Fri07/11/20 at 1242, Until Fri07/11/20 at 1627, Pain, Give 12.5 mcg every 5 minutes PRN for mild to moderate pain (1-5) Give 25 mcg every 5 minutes NH N for moderate to severe pain (6-10). Ho ld for respiratory rate less than 10 per minute. Maximum dose 250 mcg over one hour. If ordered with hydromorphone or morphine, give hydromorphone or morphine fir st and use fentanyl for breakthrough toni n., Day of Surgery (Day of Procedure), Routine ketorolac (TORADOL) injection 15 mg 15 mg, Intravenous, EVERY 8 HOURS PRN, S tarting Fri07/11/20 at 1316, Until Fri07/11/20 at 1627, Pain, moderate pain (4-6), Give for moderate pain, start with Tylenol first then give Toradol if Tylenol is not effective., PACU Recovery, Routine lidocaine (XYLOCAINE) 10 mg/mL (1 %) injection 3 mg 3 mg (0.3 mL), Subcutaneous, ONCE PRN, 1 dose, Starting Fri07/11/20 at 1142, Until Fri07/11/20 at 1627, for discomfort with PIV insertion, Day of Surgery (Day of Procedure), Routine naloxone (NARCAN) injection 0.04 mg 0.04 mg, Intravenous, EVERY 5 MIN PRN, S tarting Fri07/11/20 at 1242, Until Fri07/11/20 at 162, Opioid Reversal, for respiratory rate less than 6 or unresponsive., May repeat every 5 minutes to increase respiratory rate. DO NOT exceed 0.12 mg total dose. Notify anesthesia immediately if administered., Day of Surgery (Day of Procedure), Routine ondansetron (ZOFRAN) injection 4 mg 4 mg, Intravenous, EVERY 30 MIN PRN, Sta rting Fri07/11/20 at 1242, Until Fri07/11/20 at 162, Nausea, May repeat 4 mg once in 30 minutes. If multiple antiemetics ordered, use ondansetron first and if ineffective use prochlorperazine second and if ineffective use promethazine, Day of Surgery (Day of Procedure) oxyCODONE (Roxicodone) tablet 5 mg 5 mg, Oral, ONCE PRN, 1 dose, Starting T u07/11/20 at 1316, Until Fri07/11/20 at 1627, Pain, Severe pain (7-10), Give Tylenol and Toradol first. Contact provider if pain not relieved by Oxycodone., PACU Recovery, Routine promethazine (PHENERGAN) injection 12.5 mg 12.5 mg, Intravenous, EVERY 30 MIN PRN, 2 doses, Starting Fri07/11/20 at 1242, Until Fri07/11/20 at 162, Nausea, VESICANT - Dilute with a minimum of 10 mL saline. LARGE VEIN only. Inject over 10 minute s into the farthest port of a running IV infusion. Remain with the patient and STOP infusion immediately if patient reports burning. Avoid extravasation. If multiple antiemetics are ordered, use onda nsetron first and if ineffective use pro chlorperazine second and if ineffective use promethazine., Day of Surgery (Day of Procedure), Routine sodium chloride 0.9 % (flush) flush 5-20 mL 5-20 mL, Intravenous, EVERY 1 MIN PRN, S tarting Fri07/11/20 at 1142, Until Fri07/11/20 at 1627, flush, Flush pertains to all indwelling lines. Flush per protocol found in the job aid using the link prov ided on this medication record., Day of Surgery (Day of Procedur e), Routine No Frequency Medication Order 07/09/2020 07/10/2020 07/11/2020 ketorolac (TORADOL) 30 mg/mL (1 mL) injection (COMPLETED) 1320 (Given - Provider: Naveed Christensen, JAELYN) 1 dose, Starting on Fri07/11/20 at 1320, Until Fri07/11/20 at 1320, NAVEED SAUER: cabinet override documented in this encounter Care Teams Patient Office Rep Relationship Specialty Start Date End Date Jose Velasquez MD PCP - General General Internal Medicine 12/08/17 [address] [place] [address] documented as of this encounter
--- OUTSIDE RECORDS SUMMARY | 2022-04-29 02:04 | XMS_ITS | Encounter Summary ---
:1985 Author Organization [facility] [place] [address] Care Team Providers Name Role Phone Jose Velasquez MD Primary Care Provider Reason for Visit Reason Comments Follow-up Encounter Details Date Type Department Care Team Description 08/10/2020 Office Visit General Surgery at P[facility] Ramos, Aimee anal fistula; [facility] Morbid obesity with body mass index of 4 0.0-49.[address] [facility] [address], [place], [place] [phone] Social History Tobacco Use Types Packs/Day Years Used Date Never Smoker Smokeless Tobacco: Never Used Sex Assigned at Date Recorded Not on file documented as of this encounter Last Filed Vital Signs Vital Sign Reading Time Taken Comments Blood Pressure - - Pulse - - Temperature - - Respiratory Rate - - Oxygen Saturation - - Inhaled Oxygen Concentration - - Weight 119.6 kg (263 lb 11.2 oz) 08/10/2020 2:50 PM EDT Height 165.1 cm (5' 5) 08/10/2020 2:50 PM EDT Body Mass Index 43.88 08/10/2020 2:50 PM EDT documented in this encounter Progress Notes Pavel Ramos, PA - 08/10/2020 3:00 PM EDT Colorectal Surgery Outpatient Follow-up ~ Division of Colon and Rectal Surgery ~ [facility] Primary Care Physician: Jose Velasquez MD Referring Provider: Evelyn Espitia HPI: Cele Romero is a 34 y.o. female from [facility]. She is here for a post-operative check. 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 She had a significant amount of irritation after placement of the seton. We trimmed the edges of the seton at her last visit. She notes that following this her pain is gotten significantly better. She does note an area of irritation/chafing on the right lateral buttock. This started several days ago. Review of Systems Past medical history: Past Medical History: Diagnosis Date ??? Acne Past surgical history: Past Surgical History: Procedure Laterality Date ??? PRO REMOVAL ANAL FISTULA, COMPLEX/MULTI N/A 07/11/2020 SURGICAL TREATMENT OF ANAL FISTULA COMPLEX OR MULTIPLE W\WO SETON PLACEMENT (WRVU 6.39) performed by Bry Gama MD at [facility] Allergies: Patient has no known allergies. Medications: reviewed in the electronic medical record. Current Outpatient Medications on File Prior to Visit Medication Sig Dispense Refill ??? diphenhydramine HCl (ALLERGY ORAL) Take by mouth daily. ??? etonogestreL (NEXPLANON) 68 mg Implant by Subdermal route Continuous (Device). Expected removal date 02/2022 ??? vitamin with [id number] Tablet Take by mouth. ??? traMADoL (Ultram) 50 mg Tablet Take 1 tablet by mouth every 6 hours as needed for Pain. (Patientnot taking: Reported on 08/10/2020) 10 tablet 0 ??? [DISCONTINUED] Azelaic Acid 15 % Gel Apply to face once to twice daily. (Patient not taking: Reported on 12/08/2017) 30 g 0 No current facility-administered medications on file prior to visit. Social history: reports that she has never smoked. She has never used smokeless tobacco. Family medical history: No family history on file. Physical exam: Vitals: Height 165.1 cm (5' 5), weight 119.6 kg (263 lb 11.2 oz), unknown if currently .Body mass index is 43.88 kg/m??. General: Well developed. NAD. The patient was positioned on the table prone mirian-knife with assistance from nursing. The perianal skin is clean. T The left lateral seton is in good position. There are 3 approximately 2 mm shallow ulcerations that correspond directly to the site of the silk suture on the right lateralanoderm. The seton was rotated so that the silk sutures were inside the anal introitus. COREFO Responses 07/06/2020 07/19/2020 08/10/2020 Incontinence Scale [...] in the pain related to seton placement. However, there are 3 small less than 2 mm areas of ulceration which correspond to the silk sutures securing the seton on the contralateral anoderm on the right side. Therefore, we rotated the seton internally so that the knots were inside the introitus. I would like the patient to come back in approximately 1 month for reassessment. If at that time she continues to have irritation we would consider exchange of the seton to allow for greater mobility. She is in agreement with this plan and will plan on coming back in approximately 1 month. Longer term, we discussed operative repair including fistulotomy versus lift versus endorectal advancement flaps we reviewed the benefits and risks of each procedure as wellas the relatively low success rates for procedures such as the left and endorectal advancement flap. The decision to make or proceed with a fistulotomy would depend on the degree of sphincter involvement. We would plan on reassessing this 1 cm initial degree of sepsis has resolved. We also discussed that setons may be left in place for lifelong which is also an acceptable treatment option. Pavel Ramos PA-C, [facility] Division of Colon and Rectal Surgery [facility] Pager [phone] documented in this encounter Plan of Treatment Not on filedocumented as of this encounter Visit Diagnoses Diagnosis Perianal fistula Anal fistula Morbid obesity with body mass index of 4 0.0-49.9 documented in this encounter Care Teams Friction Paint Machine Tender Relationship Specialty Start Date End Date Jose Velasquez MD PCP - General General Internal Medicine 12/08/17 [address] [place] [address] documented as of this encounter
--- OUTSIDE RECORDS SUMMARY | 2022-04-29 02:04 | XMS_ITS | Encounter Summary ---
:1985 Author Organization [facility] [place] [address] Care Team Providers Name Role Phone Jose [...] Expiration Date Visits Requ ested Visits Authorized [id number] 1 1 Encounter Details Date Type Department Care Team Description 04/25/2021 Anesthesia Event Main Operating Room Debi Pennington MD [facility] [place] [address] [place] [address] [phone] Anesthesia Record Procedure Summary Procedure Name Responsible Anesthesia Start Anesthesia Stop Anesthesiologist Time Time ANORECTAL EXAM, Debi Rueda MD 04/25/21 0735 04/25/21 0918 REQUIRING ANESTHESIA, DIAGNOSTIC (WRVU 1.8) (N/A Anus) Events Date Time Event Comment 04/25/2021 0712 0735 AN Verify 0735 Start 0735 An Start Data 0741 An Induction 0746 An Intubation 0750 Anesthesia Ready 0840 Break/Relief In I assumed care f or Break Relief before which we: 1. Identifie d the patient 2. Identified the responsible provider(s) 3. Reviewed the pertinent medica l history 4. Discussed the surgical plan an d course 5. Reviewed intra-op anesthesia manag ement and issues during anesthesia 6. Se t expectations for the relief (and/or post-pro cedure) period 7. Allowed opportunity for questions and acknowledgement of understanding Debi Rueda MD 0855 Break/Relief Out 0903 Extubation/LMA Out Lots of oral secretions, mild laryngospasm following extuba tion, responded to suctioning and gentle posit meliton pressure ventilation by BMV. Patient obs erved for 5 minutes following improvement in s aturations on simple face mask without fur ther issues. 0912 an stop data 0916 Recovery or ICU Handoff Patient care was transferred to the destination unit staff after review of the patient's medica l history, current anesthetic/surgi donald status and plan, according to the Provider Handoff Checklist. 0918 Stop Name Total Midazolam 2 mg fentaNYL 100 mcg IV Lidocaine 100 mg Propofol 230 mg Rocuronium 50 mg Neostigmine 2 mg Glycopyrrolate 0.4 mg levoFLOXacin 750 mg Dexmedetomidine 16 mcg metroNIDAZOLE 500 mg Propofol INF 120.2 mg Lactated Ringers 600 mL Agents Name O2 Air N2O Sevoflurane (et) Blood No blood administrations on file. Lines, Drains, and Airways Type Details Placement Removal Incision 07/11/20; 1230; perirectal 07/11/20 1230 by Dionte Zhu RN Incision 04/25/21; anus 04/25/21 0000 by Deja Guajardo RN PIV 04/25/21; 0725; median vein 04/25/21 0725 by 1447 by (underside of arm), left; Araceli Shook R N Wetmore, Jaime A, RN wczi-tzl-pvorck catheter system; Anatomical Landmarks; Coleman CHRISTY; distraction, intradermal injection, tolerated well, appears comfortable; 1; metacarpal vein (top of hand), left; 04/25/21; 1447 ETT Mask Ventilation: Easy (1); 04/25/21 0746 by 0903 by Mohit ETT Type: Cuffed, Oral; ETT Evgeny Dillon M D Linzi B, MD Size: 7 mm; Mac Blade: 3; Notes: Asleep, Pre-O2, Stylette; Attempts: 1; Laryngoscopy Grade: 1; ETT Placement Verified By: Capnometry, Visual; Secured at Teeth: 23 cm; Inserted by: Wilma documented in this encounter Social History Tobacco Use Types Packs/Day Years [...] on file documented as of this encounter OR Notes Anesthesia Postprocedure Evaluation - Evgeny Dillon MD - 04/25/2021 9:40 AM EDT Department of Anesthesiology Post-procedure Note Patient: Cele Romero Procedure Summary Date: 04/25/21 Room / Location: [address] MAIN OR Anesthesia Start: 734 Anesthesia Stop: 917 Procedures: ANORECTAL EXAM, REQUIRING ANESTHESIA, DIAGNOSTIC (WRVU 1.8) (N/A Anus) ANAL FISTULA (FISTULECTOMY\FISTULOTOMY), SUBMUSCULAR (WRVU 5.42) (N/A Anus) Diagnosis: (ANAL FISTULA) Surgeons: Akua Chatterjee MD Responsible Provider: Debi Rueda MD Anesthesia Type: general ASA Status: 3 All Anesthesia Providers: Anesthesiologist: Debi Rueda MD Sales Office Assistant: Evgeny Dillon MD Vitals Value Taken Time BP 133/90 04/25/21 0930 Temp 36 ??C (96.8 ??F) 04/25/21 0910 Pulse 78 04/25/21 0938 Resp 16 04/25/21 0938 SpO2 100 % 04/25/21 0938 Pain Level 4 04/25/21 0926 Vitals shown include unvalidated device data. Patient Location: PACU[facility] Level of Consciousness: Conscious but Sleepy Pain Management: Satisfactory Analgesia PONV: None Cardiovascular Status: At Baseline and Hemodynamically Stable Respiratory Status: At Baseline and Room Air Postoperative Fluid Status: Intravascular EUvolemia Possible Anesthetic Complications: NONE apparent at time of evaluation Final Primary Anesthesia Type: General (The anesthetic type performed was the same as planned.) Comments: Evgeny Dillon MD Anesthesia Preprocedure Evaluation - Debi Rueda MD - 04/24/2021 3:24 PM EDT Pre-Anesthesia Evaluation for: Cele Romero a 35 y.o. female. Procedure(s): ANORECTAL EXAM, REQUIRING ANESTHESIA, DIAGNOSTIC (WRVU 1.8) ANAL FISTULA (FISTULECTOMY\FISTULOTOMY), SUBMUSCULAR (WRVU 5.42) Patient Active Problem List Diagnosis ??? Anal fistula ??? Positive test for human papillomavirus (HPV) ??? Encounter for supervision in primigravida, antepartum ??? Morbid obesity with body mass index of 40.0-49.9 Past Medical History: Diagnosis Date ??? Acne Past Surgical History: Procedure Laterality Date ??? PRO COLONOSCOPY, BIOPSY N/A 02/15/2021 COLONOSCOPY FLEXIBLE, WITH BX (WRVU 3.66) performed by Gilbert Batista MD at [facility] MAIN OR ??? PRO REMOVAL ANAL FISTULA, COMPLEX/MULTI N/A 07/11/2020 SURGICAL TREATMENT OF ANAL FISTULA COMPLEX OR MULTIPLE W\WO SETON PLACEMENT (WRVU 6.39) performed by Bry Gama MD at [facility] Social History Tobacco Use ??? Smoking status: Never Smoker ??? Smokeless tobacco: Never Used Substance Use Topics ??? Alcohol use: Not Currently Comment: rarely Social History Substance and Sexual Activity Drug Use Never No Known Allergies Medications: MAR and/or home medications have been reviewed. Physical Exam: Preprocedure Vitals Current as of 04/24/21 1524 No BP, pulse, respiration, SpO2, or temperature recorded. Height: Weight: BMI: IBW: Airway Assessment: Mallampati: II TM distance: >3 FB Neck ROM: full Cardiovascular Assessment: Rhythm: regular Pulmonary Assessment: unlabored breathing Dental Assessment: Misc Assessment: IV access: Peripheral line Last Filed Perioperative Cognitive Screening None Anesthesia Plan: ASA 3 general, with a(n) intravenous induction 35 y.o. female with perianal fistula w/ previously placed seton in 06/2020 scheduled for anorectal exam / ligation of fistula tract. Medical History: obesity (BMI 45) Surgical History: seton insertion 2019 Anesthetic History: proven airway grade 1 view Allergies reviewed Labs reviewed NPO Status: appropriate Anesthetic Plan: GA w/ ETT (prone) Standard ASA monitoring PIV access James Dillon MD 04/24/2021 Region - Other Informed Consent: Anesthetic plan and risks discussed with patient. Plan discussed with attending and resident. Anesthesia Screening documented in this encounter Plan of Treatment Not on filedocumented as of this encounter Visit Diagnoses Not on filedocumented in this encounter Administered Medications Inactive Administered Medications - up to 3 most recent administrations Medication Order MAR Action Action Date Dose Rate Site dexmedetomidine (Precedex) (4 Given 04/25/2021 8:47 AM EDT 4 mcg mcg/mL) bolus injection (Anesthsia) Intravenous, PRN, Starting on Fri04/25/21 at 0817, Until Fri04/25/21 at 0921, Anesthesia Intra-op, Routine Given 04/25/2021 8:36 AM EDT 4 mcg Given 04/25/2021 8:26 AM EDT 4 mcg fentaNYL (pf) (50 mcg/mL) multi-dose Given 04/25/2021 8:16 AM ED T 50 mcg injection Intravenous, PRN, Starting on Fri04/25/21 at 0741, Until Fri04/25/21 at 0921, Anesthesia Intra-op, Routine Given 04/25/2021 7:49 AM EDT 25 mcg Given 04/25/2021 7:41 AM EDT 25 mcg glycopyrrolate (Robinul) (0.2 mg/mL) Given 04/25/2021 8:53 AM ED T 0.4 mg multi-dose injection Intravenous, PRN, Starting on Fri04/25/21 at 0853, Until Fri04/25/21 at 0921, Anesthesia Intra-op, Routine lactated ringers infusion New Bag 04/25/2021 7:35 AM EDT Intravenous, CONTINUOUS PRN, Starting on Fri04/25/21 at 0735, Until Fri04/25/21 at 0921, Anesthesia Intra-op levoFLOXacin (Levaquin) 750 mg in dextrose 5% Given 7:50 AM EDT 750 mg 150 mL infusion Intravenous, PRN, Starting on Fri04/25/21 at 0750, Until Fri04/25/21 at 0921, Anesthesia Intra-op, Routine lidocaine (pf) (Xylocaine) (20 mg/mL) 2% Given 04/25/2021 7:41 A M EDT 100 mg injection syringe Intravenous, PRN, Starting on Fri04/25/21 at 0741, Until Fri04/25/21 at 0921, Anesthesia Intra-op, Routine metroNIDAZOLE (Flagyl) 500 mg in sodium Given 04/25/2021 7:59 AM EDT 500 mg chloride 0.9% 100 mL infusion Intravenous, PRN, Starting on Fri04/25/21 at 0759, Until Fri04/25/21 at 0921, Administer over 30 Minutes, Anesthesia Intra-op midazolam (pf) (Versed) (1 mg/mL) multi-dose Given 04/25/2021 7: 31 AM EDT 2 mg injection Intravenous, PRN, Starting on Fri04/25/21 at 0731, Until Fri04/25/21 at 0921, Anesthesia Intra-op, Routine neostigmine (Bloxiver) (1 mg/mL) injecti on Given 04/25/2021 8:53 AM EDT 2 mg Intravenous, PRN, Starting on Fri04/25/21 at 0853, Until Fri04/25/21 at 0921, Anesthesia Intra-op, Routine propofoL (Diprivan) 10 mg/mL bolus injection Given 8:32 AM EDT 30 mg (Anesthesia) Intravenous, PRN, Starting on Fri04/25/21 at 0742, Until Fri04/25/21 at 0921, Anesthesia Intra-op Given 04/25/2021 7:44 AM EDT 50 mg Given 04/25/2021 7:42 AM EDT 150 mg propofoL (Diprivan) infusion New Bag 04/25/2021 8:34 AM 50 mcg/kg/min 36.06 mL/hr Intravenous, CONTINUOUS PRN, EDT Starting on Fri04/25/21 at 0834, Until Fri04/25/21 at 0921, Anesthesia Intra-op, Routine rocuronium (Zemuron) (10 mg/mL) multi-dose Given 04/25/2021 7:44 AM EDT 50 mg injection Intravenous, PRN, Starting on Fri04/25/21 at 0744, Until Fri04/25/21 at 09, Anesthesia Intra-op, Routine documented in this encounter Care Teams Keno Terminal Operator Relationship Specialty Start Date End Date Jose Velasquez MD PCP - General General Internal Medicine 12/08/[address] [place] [id number] documented as of this encounter
--- OUTSIDE RECORDS SUMMARY | 2022-04-29 02:04 | XMS_ITS | Encounter Summary ---
:1985 Author Organization [facility] [place] [address] Care Team Providers Name Role Phone Jose Velasquez MD Primary Care Provider Encounter Details Date Type Department Care Team Description 02/01/2021 Telephone Gastroenterology at [facility] [place] [address] Social History Tobacco Use Types Packs/Day Years Used Date Never Smoker Smokeless Tobacco: Never Used Sex Assigned at Date Recorded Not on file documented as of this encounter Miscellaneous Notes Telephone Encounter - Surinder Rgjessika Garza - 02/01/2021 11:00 AM EDT Cele Romero [id number] Diagnosis/Indication: 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 Assess for inflammatory bowel disease. 1. Have you ever had a/an Colonoscopy before? Yes: Date About 10 years ago If yes, did you have any problems with the procedure? No What type of sedation was used: Other: Unknown 2. Do you take any blood thinners or have you been diagnosed with a bleeding disorder that increasesyour risk of bleeding with procedures? No 3. Do you have a Pacemaker or Defibrillator device? No 4. Are you a diabetic? No 5. Do you have any Allergies to Eggs, Latex or Medications? No 6. Do you take any Oral Iron Supplements (Including multi-vitamins)? Yes (Multivitamin) 7. Do you have a history of three or more abdominal surgeries? No 8. Have you had a problem with sedation or anesthesia? No 9. Do you use a c-pap machine or oxygen tank? Neither 10. Do you take prescription narcotic pain medications, including suboxone or methodone? No 11. Do you have a preference regarding the gender of your provider? No Preference 12. Is there any other information you would like to us to note for the provider and nursing team who will perform your case? No 13. Say to patient: You must have a responsible alliance party who will drive you to your procedure, stay on campus for the entire duration of your procedure, and drive you home from your procedure? *Please Verify the height and weight, and adjust if height and/or weight have changed* Estimated body mass index is 45.36 kg/m?? as calculated from the following: Height as of an earlier encounter on 02/01/21: 165.1 cm (5' 5). Weight as of an earlier encounter on 02/01/21: 123.7 kg (272 lb 9.6 oz). Age:35 y.o. documented in this encounter Plan of Treatment Not on filedocumented as of this encounter Visit Diagnoses Not on filedocumented in this encounter Care Teams Resident In Diagnostic Radiology Relationship Specialty Start Date End Date Jose Velasquez MD PCP - General General Internal Medicine 12/08/17 [address] [place] [address] documented as of this encounter
--- OUTSIDE RECORDS SUMMARY | 2022-04-29 02:04 | XMS_ITS | Encounter Summary ---
:1985 [place] [address] Care Team Providers Name Role Phone Jose Velasquez MD Primary Care Provider Reason for Visit Auth/Cert Specialty Diagnoses / Procedures Referred By Contact Refer red To Contact Diagnoses anal fistula Procedures PRO REMOVAL ANAL FISTULA, COMPLEX/MULTI SURGICAL TREATMENT OF ANAL FISTULA COMPLEX OR MULTIPLE W\WO SETON PLACEMENT (WRVU 6.39) Referral ID Status Reason Start Date Expiration Date Visits Requ ested Visits Authorized [id number] 1 1 Encounter Details Date Type Department Care Team Description 07/11/2020 Anesthesia Event Outpatient Surgery [facility] [place] [address] [facility] [place] [address] [facility] [place] [address] Anesthesia Record Procedure Summary Procedure Name Responsible Anesthesia Start Anesthesia Stop Time Anesthesiologist Time SURGICAL TREATMENT Dina Cr DO 07/11/20 1216 07/11/20 1259 OF ANAL FISTULA COMPLEX OR MULTIPLE W\WO SETON PLACEMENT (WRVU 6.39) (N/A Perineum) Events Date Time Event Comment 07/11/2020 1154 1216 AN Verify 1216 Start 1216 An Start Data 1218 An Induction 1220 An Intubation 1221 Anesthesia Ready 1236 Break/Relief In I assumed care f or [...] opportunity for questions and acknowledgement of understanding Loren Garrison CARDIOLOGY NURSE PRACTITIONER 1237 Quick Note Xprel local inje ction by surgeon. 1251 Extubation/LMA Out 1254 an stop data 1259 Recovery or ICU Handoff Patient care was transferred to the destination unit staff after review of the patient's medica l history, current anesthetic/surgi donald status and plan, according to the Provider Handoff Checklist. 1259 Stop Name Total Midazolam 2 mg fentaNYL 100 mcg IV Lidocaine 100 mg Propofol 270 mg Ondansetron 8 mg Dexamethasone 8 mg Succinylcholine 100 mg lactated ringers infusion 600 mL Agents Name O2 Air N2O Sevoflurane (et) Blood No blood administrations on file. Lines, Drains, and Airways Type Details Placement Removal Incision 07/11/20; 1230; perirectal 07/11/20 1230 by Dionte Zhu RN ETT Mask Ventilation: Easy (1); 07/11/20 1225 by Bryan worley, 07/11/20 1251 by ETT Type: Cuffed; ETT Size: MD Lilliam Arambula Heather P, CRNA 7 mm; Barber Blade: 2; Notes: Asleep, Pre-O2, Stylette; Attempts: 1; Laryngoscopy Grade: 1; ETT Placement Verified By: Capnometry, Auscultation; Secured at Teeth: 20 cm; Inserted by: Freda documented in this encounter Social History Tobacco Use Types Packs/Day Years Used Date Never Smoker Smokeless Tobacco: Never Used Sex Assigned at Date Recorded Not on file documented as of this encounter OR Notes Anesthesia Postprocedure Evaluation - Danny Barba MD - 07/11/2020 2:02 PM EDT Department of Anesthesiology Post-procedure Note Patient: Cele Romero Procedure Summary Date: 07/11/20 Room / Location: [facility] [place] [address] [place] [address] [facility] Anesthesia Start: 1216 Anesthesia Stop: 1259 Procedure: SURGICAL TREATMENT OF ANAL FISTULA COMPLEX OR MULTIPLE W\WO SETON PLACEMENT (WRVU 6.39) (N/A Perineum) Diagnosis: (anal fistula) Surgeon: Bry Gama MD Responsible Provider: Dina Cr DO Anesthesia Type: general ASA Status: 3 All Anesthesia Providers: Anesthesiologist: Dina Cr DO Staff Appraiser: Danny Barba MD Vitals Value Taken Time BP 110/80 07/11/20 1400 Temp 36 ??C (96.8 ??F) 07/11/20 1254 Pulse 80 07/11/20 1402 Resp 16 07/11/20 1400 SpO2 98 % 07/11/20 1402 Pain Level 4 07/11/20 1400 Vitals shown include unvalidated device data. Patient Location: PACU/[facility] Level of Consciousness: Awake and Alert Pain Management: Satisfactory Analgesia PONV: None Cardiovascular Status: At Baseline and Hemodynamically Stable Respiratory Status: At Baseline and Room Air Postoperative Fluid Status: Intravascular EUvolemia Possible Anesthetic Complications: NONE apparent at time of evaluation Final Primary Anesthesia Type: General (The anesthetic type performed was the same as planned.) Comments: Danny Barba MD Anesthesia Preprocedure Evaluation - Dina Cr DO - 07/10/2020 2:48 PM EDT Pre-Anesthesia Evaluation for: Cele Romero a 34 y.o. female. Procedure(s): SURGICAL TREATMENT OF ANAL FISTULA COMPLEX OR MULTIPLE W\WO SETON PLACEMENT (WRVU 6.39) Patient Active Problem List Diagnosis ??? Positive test for human papillomavirus (HPV) ??? Encounter for supervision in primigravida, antepartum ??? Morbid obesity with body mass index of 40.0-49.9 Past Medical History: Diagnosis Date ??? Acne No past surgical history on file. Social History Tobacco Use ??? Smoking status: Never Smoker ??? Smokeless tobacco: Never Used Substance Use Topics ??? Alcohol use: Not on file Social History Substance and Sexual Activity Drug Use Not on file No Known Allergies Medications: MAR and/or home medications have been reviewed. Physical Exam: No data found. There is no height or weight on file to calculate BMI. Anesthesia Physical Exam Anesthesia Plan: ASA 3 general, with a(n) intravenous induction This is a preliminary note, finalized note will follow after patient has been seen 34yo female, history of morbid obesity, presenting for management of anal abscess complicated by fistula. No prior anesthesia/cardiac records on file. No results for input(s): ABORH in the last 7068 hours. Allergies: No Known Allergies NPO Status: Appropriate Anesthetic Plan: AM premedication with oral tylenol GA with LMA Standard ASA monitoring Adequate IV access, PIVx1 Region - Other Informed Consent: Anesthetic plan and risks discussed with patient. Use of blood products discussed with patient who consented to blood products. Plan discussed with resident and attending. PAT Clinic Note Pre-Anesthesia Evaluation for: Cele winter 34 y.o. female. Procedure(s): SURGICAL TREATMENT OF ANAL FISTULA COMPLEX OR MULTIPLE W\WO SETON PLACEMENT (WRVU 6.39) Patient Active Problem List Diagnosis ??? Positive test for human papillomavirus (HPV) ??? Encounter for supervision in primigravida, antepartum ??? Morbid obesity with body mass index of 40.0-49.9 Past Medical History: Diagnosis Date ??? Acne No past surgical history on file. Social History Tobacco Use ??? Smoking status: Never Smoker ??? Smokeless tobacco: Never Used Substance Use Topics ??? Alcohol use: Not on file Social History Substance and Sexual Activity Drug Use Not on file No Known Allergies Medications: MAR and/or home medications have been reviewed. Physical Exam: No data found. There is no height or weight on file to calculate BMI. Airway Assessment: Mallampati: I TM distance: >3 FB Neck ROM: full Cardiovascular Assessment: cardiovascular exam normal Pulmonary Assessment: Rales: obese abd. pulmonary exam normal Dental Assessment: - normal exam Misc Assessment: Patient is wearing No contact(s). IV access: Peripheral line Anesthesia Plan: ASA 3 general, with a(n) intravenous induction 34yo female, history of morbid obesity, presenting for management of anal abscess complicated by fistula. No prior anesthesia/cardiac records on file. Allergies: No Known Allergies NPO Status: Appropriate Anesthetic Plan: AM premedication with oral tylenol GA with ETT ASA3: Super obese, prone position Standard ASA monitoring Adequate IV access, PIVx1 Region - Other Informed Consent: Anesthetic plan and risks discussed with patient. Plan discussed with resident and attending. PAT Clinic Note documented in this encounter Plan of Treatment Not on filedocumented as of this encounter Visit Diagnoses Not on filedocumented in this encounter Administered Medications Inactive Administered Medications - up to 3 most recent administrations Medication Order MAR Action Action Date Dose Rate Site dexamethasone (Decadron) injection Given 07/11/2020 12:21 PM EDT 8 mg PRN, Starting on e 07/11/20 at 1221, Until 07/11/20 at 1259, Anesthesia Intra-op, Routine fentaNYL 50 mcg/mL multi-dose injection Given 07/11/2020 12:32 PM EDT 25 mcg PRN, Starting on e 07/11/20 at 1218, Until 07/11/20 at 1259, Anesthesia Intra-op, Routine Given 07/11/2020 12:18 PM EDT 50 mcg Given 07/11/2020 12:16 PM EDT 25 mcg lactated ringers infusion New Bag 07/11/2020 12:16 PM EDT 1,000 mL, at 100 mL/hr, Intravenous, CONTINUOUS, Starting on e 07/11/20 at 1200, Until Fri07/11/20 at 1627, Day of Surgery (Day of Procedure) lidocaine (PF) (XYLOCAINE) 100 mg/5 mL (2 %) Given 12:18 PM EDT 100 mg injection PRN, Starting on e 07/11/20 at 1218, Until Tu07/11/20 at 1259, Anesthesia Intra-op, Routine midazolam (PF) (VERSED) multi-dose injec tion Given 07/11/2020 12:16 PM EDT 2 mg PRN, Starting on e 07/11/20 at 1216, Until 07/11/20 at 1259, Anesthesia Intra-op, Routine ondansetron (ZOFRAN) injection Given 07/11/2020 12:21 PM EDT 8 mg PRN, Starting on e 07/11/20 at 1221, Until Tu07/11/20 at 1259, Anesthesia Intra-op, Routine propofoL (Diprivan) 10 mg/mL bolus injection Given 12:39 PM EDT 30 mg (Anesthesia) PRN, Starting on Fri07/11/20 at 1218, Until Fri07/11/20 at 1259, Anesthesia Intra-op Given 07/11/2020 12:32 PM EDT 40 mg Given 07/11/2020 12:18 PM EDT 200 mg succinylcholine chloride (Quelicin) Given 07/11/2020 12:18 PM ED T 100 mg injection PRN, Starting on Fri07/11/20 at 1218, Until Fri07/11/20 at 1259, Anesthesia Intra-op, Routine documented in this encounter Care Teams Clinical Statistics Manager Relationship Specialty Start Date End Date Jose Velasquez MD PCP - General General Internal Medicine 12/08/17 [address] [place] [address] documented as of this encounter
--- OUTSIDE RECORDS SUMMARY | 2022-04-29 02:04 | XMS_ITS | Encounter Summary ---
:1985 Author Organization [facility] [place] [address] Care Team Providers Name Role Phone Jose Velasquez MD Primary Care Provider Reason for Visit Reason Comments Follow-up Encounter Details Date Type Department Care Team Description 07/10/2021 Office Visit General Surgery at [facility] Akua Chatterjee MD Anal fistula [facility] rive [facility] [place] [address] GENERAL SURGERY [phone] [place] [phone] (Wo rk) Social History Tobacco Use Types [...] Sign Reading Time Taken Comments Blood Pressure 146/99 07/10/2021 4:21 PM EDT Pulse 77 07/10/2021 4:21 PM EDT Temperature - - Respiratory Rate 16 07/10/2021 4:21 PM EDT Oxygen Saturation 100% 07/10/2021 4:21 PM EDT Inhaled Oxygen Concentration - - Weight 125.7 kg (277 lb 3.2 oz) 07/10/2021 4:21 PM EDT Height 165.1 cm (5' 5) 07/10/2021 4:21 PM EDT Body Mass Index 46.13 07/10/2021 4:21 PM EDT documented in this encounter Progress Notes Akua Chatterjee MD - 07/10/2021 4:30 PM EDT Colorectal Surgery Follow Up /HPI: Cele returns for follow up after LIFT on 04/25/2021. She had previously noted a small bump at the external seton site that bleeds with wiping. Today she notes some mild drainage and soreness atthe site. No pain or swelling. No change in bowel control. BP (!) 146/99 (BP Location (NBP): Right arm) Pulse 77 Resp 16 Ht 165.1 cm (5' 5) Wt 125.7 kg (277 lb 3.2 oz) SpO2 100% BMI 46.13 kg/m?? Body mass index is 46.13 kg/m??. Gen NAD The patient was examined in the prone mirian knife position with Ketan assisting. The old external opening on the left lateral anal margin has a small bead of pus and is tender to palpation. The anus is closed. The LIFT site appears to have healed with no obvious drainage. On digital rectal exam resting tone is normal and squeeze tone is normal. There is normal relaxationwith valsalva. There are no masses. There is no gross blood. There is tenderness to palpation of theleft lateral anal canal. COREFO Responses 09/04/2020 02/01/2021 04/10/2021 05/29/2021 07/10/2021 Incontinence Scale 11.11 5.55 5.55 0 8.33 Social Impact Scale 13.88 16.66 16.66 19.44 11.11 Frequency Scale 12.5 12.5 12.5 12.5 12.5 Stool Releated Aspects 16.66 33.33 25 41.66 33.33 Medication Scale 16.66 16.66 16.66 33.33 33.33 Total COREFO Score 13.46 14.42 13.46 16.34 15.38 The COREFO questionnaire is a validated questionnaire with 27 questions to assess colorectal functional outcome. Patients are asked to consider the two week period prior before filling out the questionnaire. Category scores range from zero to 100. A total score is calculated from the categories above,also ranging from zero to 100. A higher score represents an increased level of functional disturbance. Assessment/Plan: Cele Romero is a 35 yo woman s/p LIFT on 04/25/2021. She continues to have drainage of a small bead of pus from the old external opening very concerning for recurrent fistula. She would not tolerate probing with a fistula probe. Discussed my concerns and recommendation for EUA and likely placement of a seton drain. 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 She was very concerned about changes to bowel control and preferred the LIFT. She asked if an MRI would be helpful. I discussed with her that given the findings on exam, the MRI would likely show a recurrent fistula and even if it shows no fistula, the clinical exam findings areso suspicious that I would still recommend an EUA. She reports she is not particularly bothered by the drainage and finds this less of an issue than when she had the seton before. She also remains concerned about changes to bowel control and does not wish to risk a fistulotomy based on her current symptoms. She strongly prefers to monitor the site at home and not pursue EUA at this time. We did discuss thepossibility of a recurrent abscess at the site and that this could be acutely uncomfortable and potentially could cause a severe and in rare cases, life threatening infection if untreated. She does nothave underlying immunosuppression or diabetes and is aware of the signs of infection and counseled to seek evaluation if she develops signs of an abscess. She is aware I will be on maternity leave in afew weeks and if she changed her mind about pursuing EUA or developed an abscess, she would see one of my partners. Akua Chatterjee MD FACS FASCRS lead project manager Division of Colon and Rectal Surgery [facility] Pager [phone] documented in this encounter Plan of Treatment Not on filedocumented as of this encounter Visit Diagnoses Diagnosis Anal fistula documented in this encounter Care Teams Pleasure Craft Sailor Relationship Specialty Start Date End Date Jose Velasuqez MD PCP - General General Internal Medicine 12/08/17 [address] [place] [address] documented as of this encounter
--- OUTSIDE RECORDS SUMMARY | 2022-04-29 02:04 | XMS_ITS | Encounter Summary ---
:1985 Author Organization [facility] [place] [address] Care Team Providers Name Role Phone Jose Velasquez MD Primary Care Provider Reason for Visit Reason Comments Follow-up s/p surg treatment anal fist antonia Encounter Details Date Type Department Care Team Description 07/19/2020 Office Visit General Surgery at [facility] Pavel Ramos [place] [address] [address] [phone] [place], [place] [address] (Wo rk) Social History Tobacco Use Types Packs/Day Years Used Date Never Smoker Smokeless Tobacco: Never Used Sex Assigned at Date Recorded Not on file documented as of this encounter Last Filed Vital Signs Vital Sign Reading Time Taken Comments Blood Pressure 132/79 07/19/2020 11:23 AM EDT Pulse 74 07/19/2020 11:23 AM EDT Temperature 36.8 ??C (98.2 ??F) 07/19/2020 11:23 AM EDT Respiratory Rate 16 07/19/2020 11:23 AM EDT Oxygen Saturation 100% 07/19/2020 11:23 AM EDT Inhaled Oxygen Concentration - - Weight 120.3 kg (265 lb 4.8 oz) 07/19/2020 11:23 AM EDT Height 165.1 cm (5' 5) 07/19/2020 11:23 AM EDT Body Mass Index 44.15 07/19/2020 11:23 AM EDT documented in this encounter Progress Notes Pavel Ramos PA - 07/19/2020 11:30 AM EDT Colorectal Surgery Outpatient Follow-up ~ Division of Colon and Rectal Surgery ~ [facility] Primary Care Physician: Jose Velasquez MD Referring Provider: Evelyn Espitia HPI: Cele Romero is a 34 y.o. female from [facility]. She is here for a post-operative check. 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 Since the operation, she has had a lot of discomfort near the site of the seton. Feels like the knot is rotating into the skin. She is afraid to rotate the knot due to the discombir She has been doing sitz baths which have been helpful. She is taking 600 mg of Ibuprofen and 1000 mg Tylenol. Called the service several days ago for need for better pain control. Was given Tramadol. She is quite tearful and not sure she could have this level of discomfort for several months. Review of Systems Past medical history: Past Medical History: Diagnosis Date ??? Acne Past surgical history: Past Surgical History: Procedure Laterality Date ??? PRO REMOVAL ANAL FISTULA, COMPLEX/MULTI N/A 07/11/2020 SURGICAL TREATMENT OF ANAL FISTULA COMPLEX OR MULTIPLE W\WO SETON PLACEMENT (WRVU 6.39) performed by Bry Gama MD at [facility] Allergies: Patient has no known allergies. Medications: reviewed in the electronic medical record. Current Outpatient Medications on File Prior to Visit Medication Sig Dispense Refill ??? traMADoL (Ultram) 50 mg Tablet Take 1 tablet by mouth every 6 hours as needed for Pain. 10 tablet 0 ??? etonogestreL (NEXPLANON) 68 mg Implant by Subdermal route Continuous (Device). Expected removal date 02/2022 ??? vitamin with [id number] Tablet Take by mouth. ??? diphenhydramine HCl (ALLERGY ORAL) Take by mouth daily. ??? Azelaic Acid 15 % Gel Apply to face once to twice daily. (Patient not taking: Reported on 12/08/2017) 30 g 0 No current facility-administered medications on file prior to visit. Social history: reports that she has never smoked. She has never used smokeless tobacco. Family medical history: No family history on file. Physical exam: Vitals: Blood pressure 132/79, pulse 74, temperature 36.8 ??C (98.2 ??F), resp. rate 16, height 165.1 cm (5' 5), weight 120.3 kg (265 lb 4.8 oz), SpO2 100 %, unknown if currently .Body mass index is 44.15 kg/m??. General: Well developed. NAD. The patient was positioned on the table prone mirian-knife with assistance from nursing. The perianal skin is clean. The anoderm has a small amount of fecal soilage posteriorly. The left lateral seton is in good position. With light palpationt he patient has a greater than expected level of discomfort. This is at the external opening and with close inspection we can visualize a small ulceration of the skin at the site of entry This seems to be from direct contact with the cut end of the silastic loop. This was trimmed more closely and the tag of the silk suture was also trimmed. The seton was then rotated with the knots towards the anal opening. COREFO Responses 07/06/2020 07/19/2020 Incontinence Scale 11.11 22.22 Social Impact Scale 25 13.88 Frequency Scale 12.5 12.5 Stool Releated Aspects 66.66 66.66 Medication Scale 16.66 41.66 Total COREFO Score 23.07 25.96 The COREFO questionnaire is a validated questionnaire [...] for: SURGFINALRPT Colonoscopy: Imaging: reviewed. Impression/Plan: Cele Mohamud Nick is now s/p left lateral seton placement for control of an transphincteric fistula. The patient has had some increasing pain which I believe is related to some friction from the silastic loop. The loop end was trimmed to facilitate mobility. We plan to intensify her sitz baths frequency, and use topical lidocaine. She is in agreement. If no better we can consider replacement of the seton. Pavel Ramos PA-C, [facility] Division of Colon and Rectal Surgery [facility] Pager [phone] documented in this encounter Plan of Treatment Not on filedocumented as of this encounter Visit Diagnoses Diagnosis Perianal fistula Anal fistula documented in this encounter Care Teams Candy Separator Enrobing Relationship Specialty Start Date End Date Jose Velasquez MD PCP - General General Internal Medicine 12/08/[address] [place] [id number] documented as of this encounter
--- OUTSIDE RECORDS SUMMARY | 2022-04-29 02:04 | XMS_ITS | Encounter Summary ---
:1985 Author Organization [facility] [place] [address] Care Team Providers Name Role Phone Jose [...] Expiration Date Visits Requ ested Visits Authorized [id number] 1 1 Encounter Details Date Type Department Care Team Description 02/15/2021 Anesthesia Event Operating Room Dina Bustillo D, Day LIBERAL ARTS DEAN Evelyn Moses Day [place] [address] ANESTHESIOLOGY [phone] [place], [place] [address] (Wo rk) Anesthesia Record Procedure Summary Procedure Name Responsible Anesthesia Start Anesthesia Stop Anesthesiologist Time Time COLONOSCOPY Carlos MOREJON Grant D, LIBERAL ARTS DEAN 02/15/21 1043 05/0 04/02 1108 WITH BX (WRVU 3.66) (N/A Trunk) Events Date Time Event Comment 02/15/2021 1026 1043 AN Verify 1043 Start 1043 An Start Data 1044 An Induction 1046 Anesthesia Ready 1108 an stop data 1108 Recovery or ICU Handoff Patient care was transferred to the destination unit staff after review of the patient's medica l history, current anesthetic/surgi donald status and plan, according to the Provider Handoff Checklist. 1108 Stop Name Total Propofol 280 mg Lactated Ringers 700 mL Agents Name O2 Air N2O O2 Auxiliary Flowmeter 1 Blood No blood administrations on file. Lines, Drains, and Airways Type Details Placement Removal Incision 07/11/20; 1230; perirectal 07/11/20 1230 by Dionte Zhu RN PIV 02/15/21; 1008; median 02/15/21 1008 by Jon, 02/15/21 1127 by Augie, cubital vein (antecubital JAELYN Mahajan, JAELYN howe), left; [id number] catheter system; Anatomical Landmarks; 18 gauge; tolerated well; no longer indicated, catheter/device intact (hemostasis achieved, dressing applied); 02/15/21; 1127 documented in this encounter Social History Tobacco Use Types Packs/Day Years Used Date Never Smoker Smokeless Tobacco: Never Used Sex Assigned at Date Recorded Not on file documented as of this encounter OR Notes Anesthesia Postprocedure Evaluation - Rafi Gonzalez CRNA - 02/15/2021 12:19 PM EDT Department of Anesthesiology Post-procedure Note Patient: Cele Romero Procedure Summary Date: 02/15/21 Room / Location: [facility] PROCEDURES / [facility] MAIN OR Anesthesia Start: 1042 Anesthesia Stop: 1107 Procedure: COLONOSCOPY FLEXIBLE, WITH BX (WRVU 3.66) (N/A Trunk) Diagnosis: (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 Assess for inflammatory bowel disease.) Surgeons: Gilbert Batista MD Responsible Provider: Rafi Gonzalez CRNA Anesthesia Type: general ASA Status: 2 All Anesthesia Providers: TY Independent: Rafi Gonzalez CRNA Vitals Value Taken Time BP 129/86 02/15/21 1124 Temp 36.4 ??C (97.5 ??F) 02/15/21 1109 Pulse 86 02/15/21 1109 Resp 16 02/15/21 1124 SpO2 100 % 02/15/21 1124 Pain Level 0 02/15/21 1124 Patient Location: PACU/[facility] Level of Consciousness: Awake and Alert Pain Management: Satisfactory Analgesia PONV: None Cardiovascular Status: At Baseline and Hemodynamically Stable Respiratory Status: At Baseline and Room Air Postoperative Fluid Status: Intravascular EUvolemia Possible Anesthetic Complications: NONE apparent at time of evaluation Final Primary Anesthesia Type: General (The anesthetic type performed was the same as planned.) Comments: Rafi Gonzalez CRNA Anesthesia Preprocedure Evaluation - Rafi Gonzalez CRNA - 02/15/2021 10:26 AM EDT Pre-Anesthesia Evaluation for: Cele Romero a 35 y.o. female. Procedure(s): COLONOSCOPY, DIAGNOSTIC Patient Active Problem List Diagnosis ??? Positive [...] 6.39) performed by Bry Gama MD at [facility] Social History Tobacco Use ??? Smoking status: Never Smoker ??? Smokeless tobacco: Never Used Substance Use Topics ??? Alcohol use: Not on file Social History Substance and Sexual Activity Drug Use Not on file No Known Allergies Medications: MAR and/or home medications have been reviewed. Physical Exam: Preprocedure Vitals Current as of 02/15/21 1026 BP: 141/82 Pulse: 85 Resp: 18 SpO2: 100 Temp: 36.3 ??C (97.3 ??F) Height: 165.1 cm (5' 5) (02/15/21) Weight: 123.4 kg (272 lb) (02/15/21) BMI: 45.26 IBW: 57 kg (125 lb 10.6 oz) Last edited 02/15/21 1000 by NS Airway Assessment: Mallampati: II TM distance: <3 FB Neck ROM: full Cardiovascular Assessment: Rhythm: regular Rate: normal Pulmonary Assessment: breath sounds clear to auscultation pulmonary exam normal Dental Assessment: - normal exam Misc Assessment: Patient is wearing No contact(s). IV access: Peripheral line Last Filed Perioperative Cognitive Screening None Anesthesia Plan: ASA 2 general, with a(n) intravenous induction Region - Other Informed Consent: Anesthetic plan and risks discussed with patient. PAT Clinic Note documented in this encounter Plan of Treatment Not on filedocumented as of this encounter Visit Diagnoses Not on filedocumented in this encounter Administered Medications Inactive Administered Medications - up to 3 most recent administrations Medication Order MAR Action Action Date Dose Rate Site lactated ringers infusion New Bag 02/15/2021 10:43 AM EDT Intravenous, CONTINUOUS PRN, Starting on Irene 02/15/21 at 1043, Until Irene 02/15/21 at 1108, Anesthesia Intra-op propofoL (Diprivan) 10 mg/mL bolus injection Given 03/2021 11:05 AM EDT 30 mg (Anesthesia) Intravenous, PRN, Starting on Irene 02/15/21 at 1044, Until Irene 02/15/21 at 1108, Anesthesia Intra-op Given 02/15/2021 10:55 AM EDT 50 mg Given 02/15/2021 10:49 AM EDT 100 mg documented in this encounter Care Teams Neuroradiologist Relationship Specialty Start Date End Date Jose Velasquez MD PCP - General General Internal Medicine 12/08/17 [address] [place] [address] documented as of this encounter
--- OUTSIDE RECORDS SUMMARY | 2022-04-29 02:05 | XMS_ITS | Encounter Summary ---
:1985 Author Organization [facility] [place] [address] Care Team Providers Name Role Phone Reuben Crook MD Primary Care Provider Reason for Visit Reason Comments Spasms Encounter Details Date Type Department Care Team Description 01/03/2014 Emergency Emergency Department Carlitos Cruz MD Neck pain on left side [facility] [place] [address] [place] [address] [phone] Social History Tobacco Use Types Packs/Day Years Used Date Never Smoker Sex Assigned at Date Recorded Not on file documented as of this encounter Last Filed Vital Signs Vital Sign Reading Time Taken Comments Blood Pressure 140/85 01/03/2014 9:34 PM EDT Pulse 81 01/03/2014 9:34 PM EDT Temperature 36.5 ??C (97.7 ??F) 01/03/2014 9:34 PM EDT Respiratory Rate 18 01/03/2014 9:34 PM EDT Oxygen Saturation 100% 01/03/2014 9:34 PM EDT Inhaled Oxygen Concentration - - Weight 111.1 kg (245 lb) 01/03/2014 9:34 PM EDT Height - - Body Mass Index - - documented in this encounter Discharge Instructions AttachmentsThe following attachments cannot be sent through Care Everywhere.NECK SPASM: EXERCISES (ARGENTINE)documented in this encounter Medications at Time of Discharge Medication Sig Dispensed Refills Start Date End Date cyclobenzaprine (FLEXERIL) Take 1 tablet by 20 tablet 0 07/06/2020 10 mg tablet mouth 3 times daily as needed for Muscle spasms. No driving, no alcohol Azelaic Acid 15 % Apply to face once 30 g 0 01/15/2013 08/10/2020 GelIndications: Acne to twice daily. documented as of this encounter ED Notes Jessica Higuera RN - 01/03/2014 10:25 PM EDT Pt given discharge instructions and rx. Verbalized understanding. Good Cruz MD - 01/03/2014 10:21 PM EDT Chief Complaint Patient presents with ??? Spasms HPI Comments: 28-year-old female presents to emergency department complaining of neck pain and inability to rotate her head to the right side. Patient states she has a history of torticollis. Her last episode was while she was in high school. They began while the patient was at work. 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 She denies any trauma or strain. Is not doing any heavy lifting or stretching involving her nec k her back. Now has pain on the left side of the neck. No numbness or tingling in her extremities. No difficulty swallowing or change in speech. No fever or chills. No vomiting. No back pain or chest pain. No rash. Had ibuprofen earlier today and took some hydrocodone which he had left over. No significant improvement. The history is provided by the patient. No Known Allergies Review of Systems Constitutional: Negative for fever and chills. HENT: Positive for neck pain and neck stiffness. Negative for hearing loss, ear pain, trouble swallowing and voice change. Eyes: Negative. Respiratory: Negative for chest tightness and shortness of breath. Cardiovascular: Negative for chest pain. Gastrointestinal: Negative for nausea, vomiting and abdominal pain. Genitourinary: Negative for dysuria and hematuria. Musculoskeletal: Negative for back pain. Skin: Negative for rash. Neurological: Negative. Negative for syncope, weakness and headaches. Hematological: Negative. Psychiatric/Behavioral: Negative. Physical Exam Nursing note and vitals reviewed. Constitutional: She is oriented to person, place, and time. She appears well- developed and well-nourished. HENT: Head: Normocephalic and atraumatic. Right Ear: External ear normal. Left Ear: External ear normal. Nose: Nose normal. Mouth/Throat: Oropharynx is clear and moist. Eyes: Conjunctivae normal and EOM are normal. Pupils are equal, round, and reactive to light. Neck: Trachea normal and phonation normal. Neck supple. No JVD present. Muscular tenderness present.No tracheal tenderness and no spinous process tenderness present. No rigidity. Decreased range of motion present. No edema and no erythema present. No Brudzinski's sign and no Kernig's sign noted. No mass and no thyromegaly present. Cardiovascular: Normal rate. Pulmonary/Chest: Effort normal. No stridor. No respiratory distress. Abdominal: Soft. She exhibits no distension and no mass. There is no tenderness. Neurological: She is alert and oriented to person, place, and time. Skin: Skin is warm and dry. Psychiatric: She has a normal mood and affect. Her behavior is normal. Procedures MDM ED Course: In the Emergency Department, the patient remained afebrile and hemodynamically stable. The patient does have some pain with palpation on the left posterior region of her neck. I detect noabnormality on exam other than tenderness. No evidence of spasm and no abnormal skin findings. I don't appreciate any bumps or lymphadenopathy. Hair appears normal. No evidence of trauma and no midline cervical tenderness to palpation. The patient is able to turn her head to the left and is able to flex without difficulty. She extends to approximately 15% past the midline and has no difficulty breathing her head to the midline position. Impression and plan: Neck pain, NOS. Uncertain etiology. No report of trauma, do not suspect fracture dislocation and imaging unlikely to identify an acute cause for the patient's symptoms. Do not suspect underlying infection. Spasm also seems unlikely, given the absence of firmness in the muscles of the neck on my exam. Will treat symptomatically with ibuprofen, oxycodone in the emergency department. If the patient develops evidence of spasm, I have prescribed her Flexeril to use as needed. She hasagreed to followup with her primary care physician. Indications for return to the Emergency Department were discussed with the patient and/or guardian, who expressed an understanding. All questions were answered. Good Cruz MD 01/03/14 2227 Nereida Ayoub Manny - 01/03/2014 9:50 PM EDT Pt ambulated to room with slow but steady gait. Pt has an inability to turn head to the right. Pt reports severe pain when she tries. She can turn her head to the left without difficulty. She reports tightness in her shoulders and she feels like 'there is an elastic band in my neck' that is causing a headache. documented in this encounter Miscellaneous Notes Discharge Summary - Provider, Scanning - 01/04/2014 8:51 AM EDT Miscellaneous - Provider, Scanning - 01/03/2014 9:44 PM EDT ED Triage - Judson Pryor RN - 01/03/2014 9:36 PM EDT Pt here with muscle spasms in her neck pt was dx with torticollis at age 11 and has had issues sincept denies numbness tingling in extremities no incont of urine bowel pts gait is steady NAD skin w/pink/dry tried ibuprofen once it did not work has some narcotic pain meds at home from a miscarriage tried this once did not work did not work. Pt able to move neck slightly MAEx4 gait is steady no guarding noted documented in this encounter Plan of Treatment Not on filedocumented as of this encounter Visit Diagnoses Diagnosis Neck pain on left side Cervicalgia documented in this encounter Administered Medications Inactive Administered Medications - up to 3 most recent administrations Medication Order MAR Action Action Date Dose Rate Site ibuprofen (ADVIL;MOTRIN) tablet Given 01/03/2014 10:25 PM EDT 80 0 mg 800 mg 800 mg, Oral, ONCE, 1 dose, On Fri01/03/14 at 2245, STAT oxyCODONE (ROXICODONE) immediate release Given 01/03/2014 10:25 PM EDT 10 mg tablet 10 mg 10 mg, Oral, ONCE, 1 dose, On Fri01/03/14 at 2245, STAT documented in this encounter Active and Recently Administered Medications Times are shown in EDT. Scheduled Medication Order 01/01/2014 01/02/2014 01/03/2014 ibuprofen (ADVIL;MOTRIN) tablet 800 mg (COMPLETED) 2224 (Given - Provider: Jessica Higuera RN) 800 mg, Oral, ONCE, 1 dose, Fri01/03/14 at 2245, STAT oxyCODONE (ROXICODONE) immediate release tablet 10 mg (COMPLETED ) 2224 (Given - Provider: Jessica Higuera RN) 10 mg, Oral, ONCE, 1 dose, Fri01/03/14 at 2245, STAT documented in this encounter Care Teams Aircraft Powertrain Repairer Relationship Specialty Start Date End Date Reuben Crook MD PCP - General 08/03/12 12/07/17 [place] [address] documented as of this encounter
--- OUTSIDE RECORDS SUMMARY | 2022-04-29 02:05 | XMS_ITS | Encounter Summary ---
:1985 Author Organization [facility] [place] [address] Care Team Providers Name Role Phone Reuben Crook MD Primary Care Provider Reason for Visit Reason Comments Acne Encounter Details Date Type Department Care Team Description 10/09/2012 Office Visit Dermatology at [facility] A cne (Primary Dx) [place] [address] [place] [address] [facility] [place], [place] [address] (Wo rk) Social History Tobacco Use Types Packs/Day Years Used Date Never Assessed Sex Assigned at Date Recorded Not on file documented as of this encounter Progress Notes Gita Cr MD - 10/16/2012 2:06 PM EST I was the supervising physician working with dermatology resident Dr. Mason Hinds in the dermatology clinic during this patient visit. The level of Resident supervision for this patient visit was indirect supervision with direct supervision immediately available. (definition: [facility] GME Policy Statement on Graduate Medical Education, Supervision of Graduate Medical Trainees) I was immediately available to Dr. Hinds for questions and discussion regarding this visit. I have reviewed his encounter note details and level of service. Ryder Hinds MD - 10/09/2012 11:02 AM EST DERMATOLOGY - NEW PATIENT NOTE Date of service: 10/09/2012 Cele Romero : 1985 Dermatology Resident Note: Ryder Hinds MD Chief Problem: Acne Ms. Cele Romero is a 26 y.o. female. This is a new patient to me. Seen in consultation at the request of Jose Velasquez specifically for the evaluation and management of the above problem. HPI: Here with concerns of Acne on her face,chest and back for many years.In the past she has tried Benzoyl Peroxide but did not like it because it bleached her clothses. Taking OCP, not trying to become Past Skin History: Acne Medical History: There is no problem list on file for this patient. Medications: Current Outpatient Prescriptions on File Prior to Visit Medication Sig Dispense Refill ??? adapalene (DIFFERIN) 0.1 % gel 1 Appl(s), Top, QHS ??? clindamycin (CLEOCIN T) 1 % lotion 1 Appl(s), Top, Twice daily ??? BENZOYL PEROXIDE (BREVOXYL-8 TOP) 8 % CREAMY WASH, Top, Twice daily Allergies: No Known Allergies Family History: No family h/o melanoma, or Non Melanoma Skin Cancer No family h/o atopy, psoriasis, or other skin disease Social/Occupational History: Review of Systems: General: Feels well Skin: As per HPI; no other skin concerns Examination: Constitutional: Patient was alert, well-appearing and in no noticeable distress. Skin: An abbreviated skin exam was performed. This includes: Face,chest and back Specific skin findings: 1.scattered inflammatory papules around mouth and central back,rare on central chest Diagnosis/Assessment/Treatment Plan: 1. Acne, mild-moderate inflammatory on face, chest, and back. Prescriptions: Doxycycline 100mg bid. Risks discussed, knows not to become , using OCP Recommendations: Continue Neutrogena Enrico Acid wash Follow-up: RTC in 3 months. Instructed to call for questions or concerns. Ryder Hinds MD Resident in Dermatology [facility] I am being supervised by staff storage battery inspector: Giat Cr MD Section of Dermatology [facility] documented in this encounter Plan of Treatment Not on filedocumented as of this encounter Visit Diagnoses Diagnosis Acne - Primary Other acne documented in this encounter Care Teams Prover Relationship Specialty Start Date End Date Reuben Crook MD PCP - General 08/03/12 12/07/17 [facility] [address] [place] [address] documented as of this encounter
--- OUTSIDE RECORDS SUMMARY | 2022-04-29 02:06 | XMS_ITS | Encounter Summary ---
:1985 Author Organization [facility] Address [address] [place] [address] Care Team Providers Name Role Phone Jose Velasquez MD Primary Care Provider Encounter Details Date Type Department Care Team Description 02/14/2020 Lab Requisition [facility] Ashley Escobar, En counter for other Pathology & MD general examination Laboratory Medicine [address] [place] [id number] Social History Tobacco Use Types Packs/Day Years Used Date Never Assessed Sex Assigned at Date Recorded Not on file documented as of this encounter Plan of Treatment Not on filedocumented as of this encounter Procedures Procedure Name Priority Date/Time Associated Diagnosis Comme nts SURGICAL PATHOLOGY Today 02/11/2020 14:45 Encounter for othe r Results for this EDT general examination procedur e are in the results section. documented in this encounter Results SURGICAL PATHOLOGY (02/11/2020 14:45 EDT) Final Diagnosis A. ENDOMETRIUM, BIOPSY: [facility] E lectronically - Secretory endometrium. CENTER sig nkiko by LO Pérez MD o n SERVICES 02/15/2020 at 104 8 Attestation By the signature [facility] Electronica lly below, the attending CENTER signed by Beto physician certifies LO Shine MD on that they have 1) SERVICES 02/15/2020 a t 1048 personally conducted a gross and/or microscopic examination of the described specimen(s), and/or personally interpreted the results of laboratory testing of the described specimen(s), and 2) personally rendered or confirmed the above diagnosis. Clinical History Menorrhagia [facility] SERVICES Gross Description A. Received in formalin labe lled with proper patient identification (initials S, T) and endometrium is a 2.5 x 1.6 x 1.0 cm aggregate of pink-gutierrez soft tissue. The specimen is entirely submitted in A1. [facility] Nyla Pham 02/14/2020 9:27 SERVICES Scanned Images [facility] SERVICES Specimen Tissue - Entire endometrium (body struct ure) Performing Organization Address City/State/ZIP Code Phon e Number [facility] [address] [place] [address] SERVICES documented in this encounter Visit Diagnoses Diagnosis Encounter for other general examination documented in this encounter Care Teams Fabrication Welder Relationship Specialty Start Date End Date Jose Velasquez MD PCP - General 02/11/[address] [place] [id number] documented as of this encounter
--- OUTSIDE RECORDS SUMMARY | 2022-04-29 02:06 | XMS_ITS | Clinical Summary ---
:1985 Author Organization [facility] Address [address] [place] [address] Care Team Providers Name Role Phone Jose Velasquez MD Primary Care Provider Social History Tobacco Use Types Packs/Day Years Used Date Never Assessed Sex Assigned at Date Recorded Not on file Plan of Treatment Not on file Insurance Payer Benefit Plan / Subscriber ID Effective Dates Phone Addre ss Type Group [facility] [id number] 2019-Present [address] [place] [address] Cele Romero Personal/Family Self 1985 [address] (Home) [facility] [phone] [facility] ([place]) [place] [address] Cele Romero Personal/Family Self 1985 [address] (Home) [facility] [phone] [facility] (Work) [place] [address] Care Teams Conditioner Tumbler Operator Relationship Specialty Start Date End Date Jose Velasquez MD PCP - General 02/11/20 [address] [place] [address]
--- OUTSIDE RECORDS SUMMARY | 2022-04-29 02:06 | XMS_ITS | Encounter Summary ---
:1985 Author Organization [facility] Address [address] [place] [address] Care Team Providers Name Role Phone Unknown, Provider Primary Care Provider Encounter Details Date Type Department Care Team Description 10/04/2016 Results Only [facility]- Shahnaz Raymond, BOTTLE CAPPING MACHINE OPERATOR [phone] [facility] [place] [address] (Wo rk) Social History Tobacco Use Types Packs/Day Years Used Date Never Assessed Sex Assigned at Date Recorded Not on file documented as of this encounter Plan of Treatment Not on filedocumented as of this encounter Procedures Procedure Name Priority Date/Time Associated Diagnosis Comme nts PAP TEST- RESULT Routine 10/04/2016 0:00 EST Resu lts for this ONLY procedure are i n the results section. documented in this encounter Results PAP TEST- RESULT ONLY (10/04/2016 0:00 EST) Pathology Report: CYTOPATHOLOGY REPORT [facility] Reports generated via electronic interface contain brittney ginal data; SERVICES however they are lacking the format of the original re port. Caution should be taken when reading/interpreting unfo rmatted reports. Name: ? CELE FERNÁNDEZ ? Accession #: ? [id number] ? : ? 1985 (Age: 2 1) ??F ?Collect Da te: ? 10/04/2016 ? Location: ? [facility] ? Receive Date: ? 016 ? Provider: SHAHNAZ HUMPHREY BOTTLE CAPPING MACHINE OPERATOR Copy to: ? Final Report SPECIMEN ADEQUACY ? Satisfactory for Evaluation - transformation zone component present - scant squamous epithelial component GENERAL CATEGORIZATION ? Negative for Intraepithelial Lesion or Malignan cy ?? Last Menstrual Period: 09/19/16 Infection History: Pos for HPV: 2014 Specimen/Source: ??Pap Test, Cervix, ThinPrep Imaging System with manual evaluation Document reviewed and electronically signed by: ? MEGHA GRAMAJO MD ? Report ??Date: 10/14/2016 10:00 HPV with Pap Test ? Date Ordered: ? 10/14/2016 ? Status: ?? S igned Out ?Date Complete: ? 10/15/2016 ? By: ??Sys tem Interface ? Date Reported: ? 10/15/2016 ? Interpretation RESULT: Positive for high or intermediate risk HPV. E6 OR E7 mRNA from one or more types of HPV types 16,1 8,31, 33,35,39,45,51,52,56,58,59,66, and 68 is detected by diesel maintenance electrician mediated amplification. High and intermediate risk HPV types are associated wi th most squamous intraepithelial lesions and cervical can cers. Comments Document reviewed and electronically signed by: ? System Interface ? Report date: 10/15/2016 By the signature above, the attending physician certif ies that he/she has personally conducted a gross and/or microscopic examin ation of the described specimens and rendered or confirmed the above diagnosi s. End of Report Specimen Performing Organization Address City/State/ZIP Code Phon e Number [facility] [address] [place] [address] SERVICES documented in this encounter Visit Diagnoses Not on filedocumented in this encounter Care Teams Die Cast Engineer Relationship Specialty Start Date End Date Unknown, Provider, PCP - General 08/17/15 02/10/20 documented as of this encounter
--- OUTSIDE RECORDS SUMMARY | 2022-04-29 02:06 | XMS_ITS | Encounter Summary ---
:1985 Author Organization [facility] Address [address] [place] [address] Care Team Providers Name Role Phone Unknown, Provider Primary Care Provider Encounter Details Date Type Department Care Team Description 10/29/2016 Results Only [facility]- Saeid Allen MD [phone] [facility] [place] [address] (Wo rk) Social History Tobacco Use Types Packs/Day Years Used Date Never Assessed Sex Assigned at Date Recorded Not on file documented as of this encounter Plan of Treatment Not on filedocumented as of this encounter Procedures Procedure Name Priority Date/Time Associated Diagnosis Comme [facility] SURGICAL PATHOLOGY Routine 10/29/2016 8:43 EST Re sults for this procedure are i n the results section. documented in this encounter Results SURGICAL PATHOLOGY (10/29/2016 8:43 EST) Pathology SURGICAL PATHOLOGY REPORT [facility] Report: Reports generated via electronic interface conta in original data; [facility] however they are lacking the format of the original re port. SERVICES Caution should be taken when reading/interpreting unfo rmatted reports. Name: ? CELE FERNÁNDEZ ? Accession #: ? [id number] ? : ? 1985 (Age: 2 1) ??F ? Collect Date: ? 10/29/2016 ? Location: ? [facility] ? Receive Date: ? 10/30/19 17 ? Provider: SAEID ESPARZA MD Copy to: WILLOW CANNON MD ? Final Pathologic Diagnosis: A. ??ENDOCERVIX, CURETTAGE: - Fragments of benign endocervical mucosa with squamou s metaplasia. B. ??CERVIX, 6 O'CLOCK, BIOPSY: - Transformation zone mucosa with chroni c inflammation and reactive epithelial changes. Comment: Deeper levels of specimen (A) and (B) were revie wed. Carton Gluing Machine Operator slides of this case were reviewed at the intradepartmental consu ltation conference. ?? Document reviewed and electronically signed by: KOURTNEY RODRIGUEZ MD Report ??Date: 11/04/2016 15:45 By the signature above, the attending physician certif ies that he/she has personally conducted a gross and/or microscopic examin ation of the described specimens and rendered or confirmed the above diagnosi s. Specimen(s) Received: A. ??ECC B. ??Bx at 6 o'clock Clinical History: Nl Pap (+) HPV Gross Description: A. ?Received in formalin labelled with proper p atient identification (initials S, T) and endocervical curett age is an aggregate of red-brown soft tissue and mucus (1.2 x 1.2 x 0.4 cm). Submitted in to to in A1. B. ?Received in formalin labelled with proper p atient identification (initials S, T) and cx 6 o' clock is an aggregate of gutierrez-white soft tissue and mucus (1.0 x 0.5 x 0.4 cm). Submitted in toto in B1. KAMI Yu (ASCP) 10/30/2016 9:47 AM End of Report Specimen Performing Organization Address City/State/ZIP Code Phon e Number [facility] [address] [place] [id number] SERVICES documented in this encounter Visit Diagnoses Not on filedocumented in this encounter Care Teams Fast Food Fry Cook Relationship Specialty Start Date End Date Unknown, Provider, PCP - General 08/17/15 02/10/20 documented as of this encounter
--- OUTSIDE RECORDS SUMMARY | 2022-04-29 02:06 | XMS_ITS | Encounter Summary ---
:1985 Author Organization [facility] Address [address] [place] [address] Care Team Providers Name Role Phone Unknown, Provider Primary Care Provider Encounter Details Date Type Department Care Team Description 09/22/2017 Results Only [facility]- Elif Haider CNM [phone] [place], [place] [id number] (Wo rk) Social History Tobacco Use Types Packs/Day Years Used Date Never Assessed Sex Assigned at Date Recorded Not on file documented as of this encounter Plan of Treatment Not on filedocumented as of this encounter Procedures Procedure Name Priority Date/Time Associated Diagnosis Comme nts PAP TEST- RESULT Routine 09/22/2017 0:00 EST Resu lts for this ONLY procedure are i n the results section. documented in this encounter Results PAP TEST- RESULT ONLY (09/22/2017 0:00 EST) Pathology Report: CYTOPATHOLOGY REPORT [facility] Reports generated via electronic interface contain brittney ginal data; SERVICES however they are lacking the format of the original re port. Caution should be taken when reading/interpreting unfo rmatted reports. Name: ? CELE FERNÁNDEZ ? Accession #: ? [id number] ? : ? 1985 (Age: 2 2) ??F ?Collect Da te: ? 09/22/2017 ? Location: ? [facility] ? Receive Date: ? 017 ? Provider: ELIF JAMISONARTIE CNM Copy to: ? Final Report SPECIMEN ADEQUACY ? Satisfactory for Evaluation - transformation zone component present - scant squamous epithelial component GENERAL CATEGORIZATION ? Negative for Intraepithelial Lesion or Malignan cy INTERPRETATION ? Reactive cellular dino nges associated with inflammation present (includes repair). Menstrual/ Status: ?? Specimen/Source: ??Pap Test, Cervix, ThinPrep Imaging System with manual evaluation Document reviewed and electronically signed by: ? MORIS BUNCH MD ? Report ??Date: 10/14/2017 15:23 HPV with Pap Test ? Date Ordered: ? 10/14/2017 ? Status: ?? S igned Out ?Date Complete: ? 10/16/2017 ? By: ??Sys tem Interface ? Date Reported: ? 10/16/2017 ? Interpretation RESULT: Negative for HPV. No E6 or E7 mRNA is detected from HPV types 16,18,31,3 3,35, 39,45,51,52,56,58,59,66, and 68 by firer locomotive crane media surendra amplification. Comments Document reviewed and electronically signed by: ? System Interface ? Report date: 10/16/2017 By the signature above, the attending physician certif ies that he/she has personally conducted a gross and/or microscopic examin ation of the described specimens and rendered or confirmed the above diagnosi s. End of Report Specimen Performing Organization Address City/State/ZIP Code Phon e Number [facility] [address] [place] [address] SERVICES documented in this encounter Visit Diagnoses Not on filedocumented in this encounter Care Teams Production Checker Relationship Specialty Start Date End Date Unknown, Provider, PCP - General 08/17/15 02/10/20 documented as of this encounter
--- OUTSIDE RECORDS SUMMARY | 2022-04-29 02:07 | XMS_ITS | Encounter Summary ---
:[address] [facility] Address [address] [place] [address] Care Team Providers Name Role Phone Unavailable Primary Care Provider Unavailable Encounter Details Date Type Department Care Team Description 04/26/2013 Results Only [facility] Janel Earl, RONNIE Laboratory Services - [address] [phone] Social History Tobacco Use Types Packs/Day Years Used Date Never Assessed Sex Assigned at Date Recorded Not on file documented as of this encounter Plan of Treatment Not on filedocumented as of this encounter Procedures Procedure Name Priority Date/Time Associated Diagnosis Comme nts PAP TEST- RESULT Routine 04/26/2013 0:00 EDT Resu lts for this ONLY procedure are i n the results section. documented in this encounter Results PAP TEST- RESULT ONLY (04/26/2013 0:00 EDT) Pathology Report: CYTOPATHOLOGY REPORT [facility] Reports generated via electronic interface contain brittney ginal data; however they are lacking the format of the original re port. Caution should be taken when reading/interpreting unfo rmatted reports. Name: ? CELE ROMERO ? Accession #: ? [id number] : ? 1985 (Age: 27) ??F ?Collect Date: ? 04/12 Location: ? [facility] ? Receive Date : ? 04/27/2013 Provider: ?JANEL EARL BOBBIN HANDLER Copy to: ?WILLOW CANNON MD ? Specimen/Source: ? Pap Test, Cervix/Endocervix, ThinPrep Imaging System with manual evaluation Last Menstrual Period: ? 04/12/2013 Hormonal/Contraceptive Status: ? Oral contraceptives ? SPECIMEN ADEQUACY ? Satisfactory for Evaluation - transformation zone component present GENERAL CATEGORIZATION ? Negative for Intraepithelial Lesion or Malignan cy INTERPRETATION ? Reactive cellular dino nges associated with inflammation present (includes repair). ? Document reviewed and electronically signed by: ? RUT SHEIKH MD ? Report Date: ??05/03/2013 14:00 End of Report Specimen Performing Organization Address City/State/ZIP Code Phon e Number [facility] [address] [place] [address] SERVICES [facility] [address] [place] [address] documented in this encounter Visit Diagnoses Not on filedocumented in this encounter
--- OUTSIDE RECORDS SUMMARY | 2022-04-29 02:07 | XMS_ITS | Encounter Summary ---
:1985 Author Organization [facility] Address [address] [place] [address] Care Team Providers Name Role Phone Unavailable Primary Care Provider Unavailable Encounter Details Date Type Department Care Team Description 01/31/2003 Results Only [facility] - Janel Miranda NP conversion [address] [place] [address] Social History Tobacco Use Types Packs/Day Years Used Date Never Assessed Sex Assigned at Date Recorded Not on file documented as of this encounter Plan of Treatment Not on filedocumented as of this encounter Procedures Procedure Name Priority Date/Time Associated Diagnosis Comme [facility] CYTOPATHOLOGY Routine 01/31/2003 0:00 EDT Results for this procedure are i n the results section . documented in this encounter Results CYTOPATHOLOGY (01/31/2003 0:00 EDT) Pathology Report: CYTOPATHOLOGY REPORT [facility] Reports generated via electronic interface contain brittney ginal data; however they are lacking the format of the original re port. Caution should be taken when reading/interpreting unfo rmatted reports. Name: ? CELE FERNÁNDEZ ? Accession #: ? [id number] : ? 1985 (Age: 17) ??F ?Collect Date: ? 01/12 Location: ? [facility] ? Receive Date : ? 02/01/2003 Provider: ?JANEL NAILS EPIC MANAGER Copy to: ? Specimen/Source: ?ThinPrep Pap Test, Cervix/ Endocervix Last Menstrual Period: ? 01/17/03 Hormonal/Contraceptive Status: ? Oral contraceptives ? SPECIMEN ADEQUACY ? Satisfactory for Evaluation - transformation zone component present GENERAL CATEGORIZATION ? Negative for Intraepithelial Lesion or Malignan cy ? Document reviewed and electronically signed by: ? Brooklynn Chambers, SCT(ASCP) ? Report Date: ??02/03/2003 13:56 End of Report Specimen Performing Organization Address City/State/ZIP Code Phon e Number [facility] [address] [place] [address] SERVICES [facility] [address] [place] [address] documented in this encounter Visit Diagnoses Not on filedocumented in this encounter
[2022-04-29 11:10] LABS: HCT 38.5 % (36.0-46.0); HGB 12.4 g/dL (11.2-15.7); MCH 28.2 pg (27.0-33.0); MCHC 32.2 % (32.0-36.0); MCV 88 fL (80-95); MPV 10.1 fL (8.0-11.0); Platelet Count 212 10^3/uL (130-400); RBC 4.39 10^6/uL (3.93-5.22); RDW 13.8 % (11.7-14.6); RDW-SD 44.4 fL
[2022-04-29 11:44] LABS: ALT 34 U/L (14-59); AST 21 U/L (15-37); Albumin 3.5 g/dL (3.4-5.0); Alkaline Phosphatase 63 U/L (46-116); Anion Gap 9.5 mmol/L (3-11); BUN 12 mg/dL (7-18); Bilirubin, Total 0.2 mg/dL (0.2-1.0); CO2 26.5 mmol/L (21.0-32.0); CREATININE 0.9 mg/dL (0.55-1.02); Calcium 9.2 mg/dL (8.5-10.1); Chloride 104 mmol/L (98-107); Glucose 94 mg/dL (74-106); Potassium 4.1 mmol/L (3.5-5.1); Sodium 140 mmol/L (136-145); Total Protein 7.2 g/dL (6.4-8.2)
[2022-04-29 12:21] LABS: HCG Qual (Serum) Negative
== END 2022-04-29 02:03 | disposition home or self-care (01) ==
LOC: LBO 02:02
PROVIDERS: PCP Family Medicine Adult Medicine; Visit Provider Obstetrics & Gynecology Gynecology
DX: N94.6 Dysmenorrhea, unspecified (principal); N93.8 Other specified abnormal uterine and vaginal bleeding; Z30.2 Encounter for sterilization; Z01.818 Encounter for other preprocedural examination; Z01.812 Encounter for preprocedural laboratory examination
CPT/HCPCS: 36415; 80053; 85027; 86850; 86900; 86901; 84703

== ENCOUNTER 2022-04-29 02:25 | Outpatient (CLI) | payer BC, SELFPAY ==
[2022-04-29 10:47] LABS: Source Nasal/Nares
[2022-04-29 15:28] LABS: COVID-19 PCR Negative (Negative)
== END 2022-04-29 02:26 | disposition home or self-care (01) ==
LOC: LBO 02:25
PROVIDERS: PCP Family Medicine Adult Medicine; Visit Provider Obstetrics & Gynecology Gynecology
DX: Z20.822 Contact with and (suspected) exposure to COVID-19 (principal); Z01.818 Encounter for other preprocedural examination
CPT/HCPCS: 87635

== ENCOUNTER 2022-05-01 08:26 | Day surgery (SDC) | payer BC, SELFPAY ==
[2022-05-01] VITALS (16 sets, daily range): BP systolic 120–150; BP diastolic 68–97; PULSE 73–91; RESP 13–20; TEMP 36.4–36.6; O2SAT 95–100; BMI 44.9
[2022-05-01] MEDS: Lactated Ringers 1,000 ML 125 ML IV ×2 (09:50→14:00)
--- NOTE | 2022-05-01 10:26 | W.ANESPRE ---
General Info Date of Service Date Performed: 05/01/22 Height: 5 ft 5 in Weight: 122.3 kg Body Mass Index (BMI): 44.9 Surgical Procedure: Operation Date: 05/01/22 10:40 Proposed Procedure Side Surgeon p Mercedez Endometrial Ablation Ashley Lewis MD s Salpingectomy Laparoscopic Ashley Lewis MD Meds Allergies and Home Medications Allergies Allergy/AdvReac Type Severity Reaction Status Date / Time No Known Drug Allergies Allergy Verified 04/30/22 08:03 Home Medication Medication Instructions Recorded ibuprofen 600 mg tablet 600 mg PO Q6H PRN PRN Mild To 05/07/18 Moderate Pain #30 tabs loratadine 10 mg tablet (Claritin) 10 mg PO DAILY 01/18/22 magnesium 250 mg tablet 250 mg PO DAILY 01/18/22 multivitamin (Multiple Vitamins 1 tab PO DAILY 01/18/22 tablet) Current Visit Medications: Current Medications Generic Name Dose Route Start Last Admin Trade Name Freq PRN Reason Stop Dose Admin Ringer's Solution 1,000 mls @ 125 mls/hr 05/01/22 06:00 05/01/22 09:50 IV 05/30/22 23:59 125 mls/hr INFUSION EMY Administration IV Miscellaneous Supplies 1 each 05/01/22 06:00 Iv Access IV 05/30/22 23:59 DIRECTED EMY Sodium Chloride 0 ml 05/01/22 06:00 Normal Saline Flush 10 Ml Syr IV 05/30/22 23:59 PRN PRN Sodium Chloride 0 ml 05/01/22 06:00 Normal Saline 10 Ml Vial IJ 05/30/22 23:59 DIRECTED PRN Sterile Water 0 ml 05/01/22 06:00 Water,Injection,Sterile 10 Ml Vial IJ 05/30/22 23:59 DIRECTED PRN PFSH Active Problems Active Problems: Problem Status Onset Code Asthma Abnormal uterine bleeding (AUB) N93.9 Contraception Z30.9 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 10/2016 Colpo bx: Normal. Plan repeat in one year. Perianal cyst pt reports periananl cyst repair at [facility] April 2021 Tobacco Smoking/Tobacco Use Status: Never Alcohol Alcohol Intake: never Substance Use Substance use: Never Substance use type: does not use Prental History History 2 Para 1 Hx # Term Pregnancies Multiple births Hx # Pregnancies Ectopic pregnancies AB induced Hx Number of Living Children AB spontaneous Vital Signs and Lab Results Vital Signs Most Recent Vital Signs in EMR: Most Recent Vital Signs Temp Pulse Resp BP Pulse Ox 36.6 C 79 18 120/94 H 100 05/01/22 08:55 05/01/22 08:55 05/01/22 08:55 05/01/22 08:55 05/01/22 08:55 Point of Care Results Point of Care Results: POC- Test(urine) Negative 05/01/22 09:19 Lab Results Blood Type / Crossmatch: Patient ABO/Rh A Positive 04/29/22 Antibody Screen NEGATIVE 04/29/22 Complete Blood Count: White Blood Count 7.40 10^3/uL (4.4-10.8) 04/29/22 11:02 Red Blood Count 4.39 10^6/uL (3.93-5.22) 04/29/22 11:02 Hemoglobin 12.4 g/dL (11.2-15.7) 04/29/22 11:02 Hematocrit 38.5 % (36.0-46.0) 04/29/22 11:02 Platelet Count 212 10^3/uL (130-400) 04/29/22 11:02 Complete Metabolic Panel: Sodium Level 140 mmol/L (136-145) 04/29/22 11:02 Potassium Level 4.1 mmol/L (3.5-5.1) 04/29/22 11:02 Chloride Level 104 mmol/L (98-107) 04/29/22 11:02 Carbon Dioxide Level 26.5 mmol/L (21.0-32.0) 04/29/22 11:02 Blood Urea Nitrogen 12 mg/dL (7-18) 04/29/22 11:02 Creatinine 0.9 mg/dL (0.55-1.02) 04/29/22 11:02 Estimated GFR/1.73 m2 >= 60.00 (mL/min/1.73m2) 04/29/22 11:02 Calcium Level 9.2 mg/dL (8.5-10.1) 04/29/22 11:02 Albumin 3.5 g/dL (3.4-5.0) 04/29/22 11:02 Glucose Level 94 mg/dL (74-106) 04/29/22 11:02 Liver Function Panel: Alanine Aminotransferase (ALT/SGPT) 34 U/L (14-59) 04/29/22 11:02 Aspartate Amino Transf (AST/SGOT) 21 U/L (15-37) 04/29/22 11:02 Coagulation Panel: No Data to Display Cardiac Panel: No Data to Display Arterial Blood Gas: No Data to Display Venous Blood Gas: No Data to Display Pancreas Panel: No Data to Display Thyroid Panel: No Data to Display Infectious Disease: Coronavirus (COVID-19)(PCR) Negative (Negative) 04/29/22 10:32 Coronavirus 2019 Source Nasal/Nares 04/29/22 10:32 Blood Cultures: No Data to Display Toxicology Panel: No Data to Display Panel: Serum HCG, Qualitative Negative 04/29/22 11:02 Anesthesia Assessment and Plan Anesthesia History Personal History: No History of Anesthesia Complications Family History: No Family History of Anesthesia Complications Exercise Tolerance Exercise Tolerance: Metabolic Equivalents>4 Pertinent Negatives Pertinent Negatives: No Symptoms of GERD, No Major Cardiovascular Symptoms or Complaints, No Major Pulmonary Symptoms or Complaints and No History of CVA/TIA Cardiac & Pulmonary Exam Cardiac Exam: Normal S1/S2 Heart Sounds Pulmonary Exam: Clear Bilateral Breath Sounds Implantable Cardiac Device Does patient have a Pacemaker or an ICD?: No Airway Exam Known Difficult Airway: No Mallampati Class: 2 Mouth Opening: Normal (> 3cm) Thyromental Distance: Greater than 3 cm Neck Range of Motion: Full ROM Neck Circumference: Normal Teeth Condition: Normal Dentition ASA Classification ASA Score: ASA 1 Emergency Case?: No NPO Status NPO Status: NPO Clears >2 hours, Solids >8 hours Status Status: Negative HCG Anesthesia Plan Resuscitation Status: Full Code Anesthesia Technique: General Anesthesia Airway Planned: Endotracheal Tube Monitors Used: Standard Monitors
--- NOTE | 2022-05-01 11:47 | ENDOMET_PTH ---
PATIENT: Cele Romero LOC: [facility] U#:[id number] AGE/SX: 36/F ROOM: RE05/01/[address]: Ashley Lewis : 1985 BED: DIS: 05/01/2022 SPEC #: [id number] RECD: 05/02/22 18:20 STATUS: JOYCELYN RE #: [id number] LI: 05/01/22 11:[address]: Ashlye Lewis DEPT: Surgical Specimen RECD BY: Barbara Galan ENTERED: 05/02/22 18:21 SP TYPE: Endomet OTHR DR: Jose Velasquez Tissues: 1 - ENDOMETRIUM BX/CURRETTE 2 - FALLOPIAN TUBE (STERILIZATION) 3 - FALLOPIAN TUBE (STERILIZATION) Procedures: GROSS AND MICRO LEVEL 2 GROSS AND MICRO LEVEL 4 Comments: [id number]
[2022-05-01] MEDS: Bupivacaine 0.25% Pres-Free 30 ML VIAL (12:15)
[2022-05-01] MEDS: fentaNYL 100 MCG/2 ML VIAL IVP ×4 (13:30→14:20)
--- NOTE | 2022-05-01 14:24 | PDOC.DSDIS_ITS ---
Discharge Plan Disposition Patient Disposition: HOME Discharge Details Reason For Visit: Laparoscopic salpingectomy, HTA ablation Attending Provider: Ashley Lewis Primary Care Provider: Jose Velasquez Home Meds and New Rx's Prescriptions: No Action magnesium 250 mg tablet 250 mg PO DAILY multivitamin [Multiple Vitamins] Tablet 1 tab PO DAILY loratadine [Claritin] 10 mg tablet 10 mg PO DAILY ibuprofen 600 MG tablet 600 mg PO Q6H PRN PRN (Reason: Mild To Moderate Pain) Qty: 30 2RF Discharge Instructions Additional Instructions: You will have cramping in your pelvis for the next 24 hours. You can expect watery yellow-brown discharge for the next 4 weeks. If you develop a fever or pain more intense and or to experience during your periods please call the office and we will see you sooner than your 2-week postop visit. You may shower. Steri-Strips over your incision may be removed in 72 hours. The Band- Aid covering your incision can be changed as needed. Use [id number] ibuprofen and acetaminophen for pain control. I have called a prescription for H ydromorphone into your pharmacy. Take one tablet every 6 hrs as need for pain, along with the over the counter pain medications. Keep your 2-week postop visit with Dr. Lewis. If you do not have 1 please call [phone] to schedule an appointment. Stand Alone Forms: DSU Post Flavorings Compounder SurgeryW/Incision Activity:: Activity as Tolerated Remove Dressings/Wound Care:: 72 hours Diet:: As Tolerated Discharge Orders Discharge Orders: Discharge Order (Routine); Ordered 05/01/22 Ordered By: Ashley Lewis
--- NOTE | 2022-05-01 14:29 | W.PM.OP ---
Date of service: 05/01/22 Time of Service: 14:29 Operative Note Operative Note DATE OF PROCEDURE: 05/01/22 PRE-OP DIAGNOSIS: Abnormal uterine bleeding, dysmenorrhea, undesired fertility PROCEDURE: Hydrothermal endometrial ablation. Laparoscopic bilateral salpingectomy, and endometrial biopsy SURGEON: Ashley Lewis ASSISTING SURGEON: Cheri Garzon Refer to Anesthesia Record ESTIMATED BLOOD LOSS: 5 PATHOLOGY: other (Right and left fallopian tubes to pathology, endometrial biopsy to pathology) COMPLICATIONS: None Patient was transported to: PACU Patient's condition: stable Implants: None Indications: 36-year-old G-2,? P-1 female with a history of heavy uterine bleeding and associated dysmenorrhea who desired endometrial ablation after unsuccessful medical therapy. Pt was counseled that she should not attempt pregnany after an endometrial ablation. She is sure that she does not desire any future pregnancies and agreed to a permanent tubal sterilization at the time of the hydrothermal endometrial ablation. Patient had a normal endometrial biopsies approximately 2 years ago a repeat biopsy was performed to her endometrial ablation Findings: Normal uterine cavity with no intracavitary filling defects. Both tubal ostia were visualized. Small amount of clear fluid in the posterior cul-de-sac at the time of laparoscopy after the endometrial ablation had been performed. Normal adnexa normal upper abdomen. Procedure Description: Patient was taken to the operating room where she was placed in the dorsal supine position and general endotracheal anesthesia was administered without difficulty. She was then placed in the dorsolithotomy position in yellowfin stirrups and prepped and draped in the usual sterile fashion. SCDs were in place. No antibiotics were required. A Brown catheter was placed to gravity drainage. After a surgical timeout was performed a bivalve speculum was placed in the patient's vagina. A single-tooth tenaculum was used to grasp the anterior lip of the cervix. Cervix was then sequentially dilated to a maximum of 16 Tovar. A hysteroscope sheath was inserted into the uterine cavity and a cavity assessment was performed with the above noted findings. The tip of the hysteroscope sheath was positioned to allow visualization of the uterine fundus, both tubal ostia in the midportion of the uterine cavity. The sheath was protected from the vaginal brunner by the bivalve speculum in place. Heated isotonic saline was then administered via gravity into the uterus through the sheath. Once a safety assessment was performed the treatment phase of the procedure began and under direct observation the uterine cavity was treated with heated isotonic saline at 89 ?C for 10 minutes. Intrauterine cool-down phase was performed for 1 minute. The uterine cavity was carefully assessed with hysteroscopy and was noted to have a satisfactory treatment effect and the integrity of the uterine cavity confirmed. After these findings the hysteroscope was removed and the [employer]Containers[employer] uterine manipulator was placed and the speculum removed. Attention was then turned to the abdominal portion of the procedure. The umbilical fold was infiltrated with 0.25% Marcaine without epinephrine and 12 mm vertical skin incision was made in the umbilicus. Through this incision a varies needle connected to carbon dioxide gas was inserted into the abdomen and intra-abdominal placement confirmed by drop in the intra-abdominal pressure. Once a pneumoperitoneum was established a 12 mm Visiport trocar was introduced into the abdomen under direct visualization. The patient was then placed in Trendelenburg and 2 sites on the abdomen approximately 6 cm diagonal to the right of and left of the umbilical incision were transilluminated the skin infiltrated with 0.25% Marcaine incised with a scalpel and under direct visualization two 5 mm ports were placed in the right and left lower quadrants respectively. The abdomen was inspected with the above-noted findings. The left fallopian tube located and followed out to its fimbriated end and a LigaSure electrocautery device was used to clamp cauterize and transect the fimbria from the left mesosalpinx to the level of the left uterine cornua. The left fallopian tube was then delivered through the 10 mm umbilical port and passed off of the operative field. A similar technique was carried out on the right fallopian tube without difficulty. The right fallopian tube was then delivered through the umbilical port. Both fallopian tube pedicles were inspected and noted to be hemostatic. Under direct visualization the two 5 mm ports were removed, pneumoperitoneum reduced, and the umbilical port removed. The fascia of the umbilical port site was reapproximated with interrupted suture of 0 Vicryl. The skin of all trocar sites was reapproximated with 4-0 Monocryl and covered with dry sterile dressings. The uterine manipulator was then removed as well as the Brown catheter. The patient was awakened extubated and transported to recovery area in stable condition. All sponge lap needle counts are correct x2.
[2022-05-01] MEDS: Normal Saline 10 ML VIAL IJ (14:40)
[2022-05-01] MEDS: HYDROmorphone 2 MG/ML VIAL IVP ×2 (14:40→15:10)
[2022-05-01] MEDS: oxyCODONE 5 mg/Acetaminophen 325 mg TAB PO ×2 (14:57→15:20)
--- NOTE | 2022-05-01 15:44 | W.ANESPOSTOP ---
Postoperative Evaluation Date, Time and Location Date Performed: 05/01/22 Time Performed: 15:44 Patient Location: PACU Vital Signs Most Recent Imported Vital Signs: Most Recent Vital Signs Temp Pulse Resp BP Pulse Ox 36.6 C 80 14 150/82 H 95 05/01/22 15:40 05/01/22 15:40 05/01/22 15:40 05/01/22 15:40 05/01/22 15:40 Pain Score Most Recent Pain Score: Most Recent Pain Score Pain Level 6 05/01/22 15:40 Assessment Mental Status: Awake (Alert & Oriented to Patient Baseline) Airway and Respiratory Function: Patent airway with normal (patient baseline) respiratory exam Cardiovascular Function: Hemodynamically Stable Hydration Status: Adequately Hydrated Nausea & Vomiting: No Nausea or Vomiting Pain: Pain is tolerable per patient Peripheral Nerve Block: Patient did not receive a nerve block
== END 2022-05-01 17:15 | disposition home or self-care (01) ==
PROVIDERS: PCP Family Medicine Adult Medicine; Visit Provider Obstetrics & Gynecology Gynecology
PROC: (CPT 58353; principal; 2022-05-01 10:30)
PROC: (CPT 58661; 2022-05-01 10:30)
DX: Z30.2 Encounter for sterilization (principal); N93.8 Other specified abnormal uterine and vaginal bleeding; N94.6 Dysmenorrhea, unspecified
CPT/HCPCS: 58661; 58563; 81025; 88305; 88302; J1100; J1885; J2405; J3010

== ENCOUNTER 2022-10-18 12:57 | Outpatient (REF) | payer BC, SELFPAY ==
[2022-10-20 13:40] LABS: Chlamydia Result Negative (Negative); GC Result Negative (Negative)
== END 2022-10-18 12:58 | disposition home or self-care (01) ==
LOC: LBN 12:57
PROVIDERS: PCP Family Medicine Adult Medicine; Visit Provider Advanced Practice Midwife
DX: N94.89 Other specified conditions associated with female genital organs and menstrual cycle (principal); N89.8 Other specified noninflammatory disorders of vagina
CPT/HCPCS: 87491; 87591; 87086; 87480; 87510; 87660

== ENCOUNTER 2023-07-17 14:46 | Inpatient (IN) | payer BC, SELFPAY ==
[2023-07-17 14:51] VITALS: BP 155/80; PULSE 83; RESP 18; TEMP 36.4; O2SAT 100
--- OUTSIDE RECORDS SUMMARY | 2023-07-17 14:53 | XMS_ITS | Patient Health Record ---
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 Name Role Phone CAMMIE ALCARAZ Primary Care Provider TERENCE MADRIGAL Unavailable [phone] ALLERGIES No Known Allergies RESULTS Component Value Reference Range Notes CBC w/ Diff Reviewed date:07/09/2023 07:34:31 AM Interpretation: Performing Lab: Notes/Report: WBC 7.3 4.8-10.8 K/mcL RBC 4.45 4.20-5.40 Million/mcL Hgb 12.7 12.0-16.0 g/dL Hct 40.5 37.0-47.0 % MCV 91.0 81.0-99.0 fL MCH 28.5 27.0-31.0 pg Platelets 220 130-400 K/mcL MPV 9.5 7.4-10.4 fL MCHC 31.4 32.0-36.0 g/dL RDW-CV 12.9 11.5-14.5 % - Ordering Provider: TERENCE MADRIGAL TSH (reflex to FT4) Reviewed date:07/09/2023 07:35:17 AM Interpretation: Performing Lab: Notes/Report: COMPREHENSIVE METABOLIC PROF ILE Reviewed date:07/09/2023 07:35:07 AM Interpretation: Performing Lab: Notes/Report: Sodium Level 141 134-143 mmol/L Chloride Level 105 98-111 mmol/L CO2 27 22-32 mmol/L Alk Phos 56 38-130 IntlUnit/L AST 22 15-41 IntlUnit/L ALT 23 14-54 IntlUnit/L BUN 16 8-26 mg/dL Creatinine Level 0.78 0.44-1.00 mg/dL Calcium Level 9.2 8.9-10.3 mg/dL Protein Total 6.9 6.5-8.1 g/dL Albumin Level 3.9 3.5-5.0 g/dL Bilirubin Total 0.4 0.2-1.2 mg/dL Anion Gap 9.0 3.0-12.0 BUN/Creat Ratio 20.5 8.0-20.0 Osmolality 282 275-295 mOsm/kg A/G Ratio 1.3 1.0-2.5 g/dL Globulin 3.0 2.3-3.5 g/dL LIPID PROFILE Reviewed date:07/09/2023 07:34:55 AM Interpretation: Performing Lab: Notes/Report: Cholesterol Total 148 129-209 mg/dL HDL 52 40-80 mg/dL LDL 82.3 Optimal: Less than 100 mg/dL Above Optimal: 100 - 129 mg/dL Borderline High: 130 - 159 mg/dL High: 160 - 189 mg/dL Very High: > or = 190 mg/dL Chol/HDL 2.8 RISK MALE FEMALE 1/2 average 3.4 3.3 Average 5.0 4.4 2x Average 9.6 7.1 3x Average 23.4 11.0 - Ordering Provider: TERENCE MADRIGAL CBC, WITH AUTO DIFF Reviewed date:07/09/2023 07:34:43 AM Interpretation: Performing Lab: Notes/Report: Neutro Auto 54.2 42.2-75.2 % Lymph Auto 36.5 20.5-51.1 % Apache Auto 5.5 1.7-9.3 % Eos, Auto 2.70 0.00-3.00 % Basophil Auto 0.8 0.0-0.8 % Neutro Absolute 4.0 1.4-6.5 K/mcL Lymph Absolute 2.7 1.2-3.4 K/mcL [place] Absolute 0.4 0.1-0.6 K/mcL Eos Absolute 0.2 0.0-0.2 K/mcL Baso Absolute 0.1 0.0-0.2 K/mcL REASON FOR REFERRAL No Information MEDICATIONS Medication SIG (Take, Route, Fr equency, Duration) Notes Start Date End Date Status Wegovy 0.25 MG/0.5ML 0.5 ml Subcutaneous once a week for 30 day(s) 07/03/2023 Active Multivitamin - 1 tablet Orally Once a day for 30 day(s) Active Magnesium - as directed Orally Active Probiotic - as directed Orally Active Loratadine 10 MG 1 tablet Orally Once a day for 30 day(s) Active IMMUNIZATIONS Vaccine Route Administration Date Status Commshannon Serrano COVID-19 IM Intramuscular 08/15/2021 Administered [employer] Abdullahi Covid-19 Unknown 12/24/2020 Administered Influenza IM Intramuscular 07/31/2012 Administered Fluzone Quadrivalent IM Intramuscular 11/13/2017 Administe isabelle DTP Unknown 12/14/2010 Administered Afluria QIV influenza IM Intramuscular 07/02/2022 Administ ered Afluria QIV influenza IM Intramuscular 07/03/2023 Administ ered SOCIAL HISTORY Tobacco Use: Social History Observation Description Date Details (start date - stop date) Never Smoker NA - NA Sex Assigned At : Social History Observation Description Sex Assigned At Unknown Tobacco Use/Smoking Question Answer Notes Are you a nonsmoker Alcohol Screen Question Answer Notes Did you have a drink contain ing alcohol in the past year? Yes How often did you have a dri nk containing alcohol in the past year? Monthly or less (1 point) How many drinks did you have on a typical day when you were drinking in the past year? 1 or 2 drinks (0 point) How often did you have 6 or more drinks on one occasion in the past year? Never (0 point) Points 1 Interpretation Negative PROBLEMS Problem Type ICD Code Onset Dates Problem Status W/U Status Risk SNOMED Code Notes Problem Morbid (severe) obesity due to excess calories (E66.01) Active confirmed Morbid obesity (disorder) (170413707) Problem Obesity, unspecified (E66.9) Active confirmed Obesity (463629843) Problem Sleep related bruxism (G47.63) Active confirmed Sleep-relat ed bruxism (629336706) Problem Acne vulgaris (L70.0) Active confirmed Acne vulgaris (02100005) Problem Excessive and frequent menstruation with irregular cycle (N92.1) Active confirmed Intermenstrual bleeding - irregular (91503090) Problem Personal history of COVID-19 (Z86.16) Active confirmed History of disease caused by Severe acute respiratory syndrome coronavirus 2 (situation) (8314861103692827 05) Encounters Encounter Location Date Provider Diagnosis [facility] [address] [place] [address] 07/03/2023 TERENCE BRIONESKINS Encounter for genera l adult medical examination without abnormal findings Z00.00 ; Encounter for immunization Z23 ; Morbid (severe) obesity due to excess calories E66.01 and Neoplasm of uncertain behavior of skin D48.5 ASSESSMENTS Encounter Date Diagnosis Assessment Notes Treatment Notes Treatment Clinical Notes 07/03/2023 Encounter for general adult medical examination without abnormal findings (ICD-10 - Z00.00) Pt educated. Given LS to have fasting labs at [facility]. Immunizations reviewed and discussed and flu shot given 07/03/2023 Encounter for immunization (ICD-10 - Z23) 07/03/2023 Morbid (severe) obesity due to excess calories (ICD-10 - E66.01) Long conversation regarding diet and exercise. Discuss options available to help with weight loss. She owuld like to try Wegovy-usage and SE discussed. RC 1 month 07/03/2023 Neoplasm of uncertain behavior of skin (ICD-10 - D48.5) Appears to be a pyogenic granuloma. Discussed treatmentment options, pt would like to do watchful waiting-discussed ABCD's of moles PLAN OF TREATMENT Next Appt Details Provider Name:TERENCE Delmy CHAVEZ, 07/31/2023 03:45:00 PM, [address] [facility], [place], [address], Provider Name:TERENCE CHAVEZ, 07/07/2024 02:45:00 PM, [address] [facility], [place], [address], Insurance Providers Payer Name Payer Address Payer Phone Subscriber Number Group Number Insured Name Patient Relationship to Insured Coverage Start Date Coverage End Date [employer] [place] [address] [place] [id number] Cele Romero Self - patient is the insured 9 MEDICAL (GENERAL) HISTORY Medical History History ICD Code 10-04-2016 Pap/hpv, Dr Hutchison, HPV posit meliton 02-15-2021 colonoscopy Surgical History Surgery Date(Month/Year) tonsillectomy wisdom teeth extraction child 04/2018 Patient admitted to [facility] for surgical pro cedure 06/2019 colonoscopy 02/15/2021 Hydrothermal endometrial alb ation. Laparoscopic bilateral salpingectomy, and endometrial biopsy 05/01/2022
--- NOTE | 2023-07-17 15:00 | RT.EKG_ITS ---
APPROVED REPORT Exam: Resting ECG Reason for Exam: epigastric pain Patient Location: E HR:78 bpm ECG Measurements Heart Rate 78 AXIS MA 164 P 80 QRSd 101 QRS 34 QT 361 T 34 QTc 413 Conclusion Sinus rhythm...normal P axis, V-rate 60- 99 Physician: no stemi
--- NOTE | 2023-07-17 15:00 | DI.US_ITS ---
Exam(s) US ABDOMEN LIMITED EXAM: US ABDOMEN LIMITED CLINICAL HISTORY: RUQ pain TECHNIQUE: Ultrasound abdomen performed using standard protocol. COMPARISON: No exams were available for comparison FINDINGS: LIVER: Normal size. Normalechogenicity. No focal liver lesions are seen.. GALLBLADDER: Gallbladder appears somewhat distended. There is wall thickening which could indicate a cute cholecystitis. No pericholecystic fluid identified. BEDOYA'S SIGN: Negative. BILIARY SYSTEM: No intrahepatic or extrahepatic biliary ductal dilation. RIGHT KIDNEY: Normal size. No evidence of renal calculi. No evidence of hydronephrosis. No suspicious renal mass. No cyst identified. PANCREAS: Normal where visualized. ABDOMINAL AORTA AND IVC: Visualized portions normal caliber. ASCITES: None seen. IMPRESSION: The gallbladder is somewhat distended and shows thickened wall. The findings could represent acute c holecystitis. However there is no specific tenderness while scanning over the gallbladder. Clinical correlation recommended. DATA REPOSITORY:
--- NOTE | 2023-07-17 15:18 | ED.GENADUL_ITS ---
Discharge Plan Disposition Patient Disposition: Admit to [facility] Condition: Stable Discharge Details Clinical Impression: Acute cholecystitis Admit Date/Time: 07/17/23 17:20 Admit Provider: Xiang Arvizu Attending Provider: Xiang Arvizu Primary Care Provider: Jose Velasquez ED Provider: Nyla Merino Discharge Data Discharge Date/Time-TO BE ENTERED AT DEPARTURE: 07/17/23 18:50 Medical Decision Making <KAMI Sloorio - Last Filed: 07/20/23 17:05> 37-year-old female presenting with right upper quadrant pain During clinical exam and complaints, ultrasound of right upper quadrant was ordered for further differentiation, denies any urinary complaints or chance of . Will order IV Tylenol, IV fluids, IV Zofran, EKG does not show significant acute abnormality Pending ultrasound, will transition care to Bev Merino, nurse practitioner pending ultrasound, labs, and disposition <Nyla Merino NP - Last Filed: 07/17/23 19:36> 37-year-old female presenting with right upper quadrant pain During clinical exam and complaints, ultrasound of right upper quadrant was ordered for further differentiation, denies any urinary complaints or chance of . Will order IV Tylenol, IV fluids, IV Zofran, EKG does not show significant acute abnormality Pending ultrasound, will transition care to Bev Merino, nurse practitioner pending ultrasound, labs, and disposition 1600: SJ: Care assumed from provider (KAMI Solorio) Please see their initial HPI, PE, and documentation. Discussed patient details and case and pending workup and disposition. Patient is hemodynamically stable, and alert and oriented. At the time of signout awaiting labs and radiology report. Patient is here for right upper quadrant abdominal pain CBC CMP within normal limits, lipase also within normal limits. 1659: Surgery paged. Spoke with Dr. Arvizu, will call him back, discussed options for patient to have surgery tonight or tomorrow or follow up early next week. She is unsure at this time. 1718: Patient requests to go ahead with surgery now. Surgery paged. 1722: Spoke with Dr. Arvizu, holding orders placed. Patient made NPO. Patient transported up to floor in hemodynamically stable condition. Medical Records Medical records reviewed: Yes I reviewed the patient's medical records. Imaging Data Radiologic Study: Imaging: Ultrasound Radiologist's impression: EXAM: ? US ABDOMEN LIMITED CLINICAL HISTORY: ? RUQ pain TECHNIQUE:? Ultrasound abdomen performed using standard protocol. COMPARISON:? No exams were available for comparison FINDINGS: LIVER: Normal size.? Normalechogenicity.? No focal liver lesions are seen.. GALLBLADDER: Gallbladder appears somewhat distended.? There is wall thickening which could indicate acute cholecystitis.? No pericholecystic fluid identified. BEDOYA'S SIGN: Negative. BILIARY SYSTEM: No intrahepatic or extrahepatic biliary ductal dilation. RIGHT KIDNEY: Normal size. No evidence of renal calculi. No evidence of hydronephrosis. No suspicious renal mass.? No cyst identified. PANCREAS: Normal where visualized. ABDOMINAL AORTA AND IVC: Visualized portions normal caliber. ASCITES: None seen. IMPRESSION: The gallbladder is somewhat distended and shows thickened wall.? The findings could represent acute cholecystitis.? However there is no specific tenderness while scanning over the gallbladder.? Clinical correlation recommended. Lab Data Lab results reviewed: Yes I reviewed the patient's lab results. Labs: Laboratory Tests Range/Units 07/17/23 07/17/23 15:20 15:20 WBC (4.4-10.8) 10^3/uL 8.84 RBC (3.93-5.22) 10^6/uL 4.42 Hgb (11.2-15.7) g/dL 12.5 Hct (36.0-46.0) % 39.1 MCV (80-95) fL 89 MCH (27.0-33.0) pg 28.3 MCHC (32.0-36.0) % 32.0 RDW (11.7-14.6) % 12.7 Plt Count (130-400) 10^3/uL 209 MPV (8.0-11.0) fL 9.4 Immature Gran % 0.3 Neutrophils % 53.5 Lymphocytes % 36.8 Monocytes % 6.8 Eosinophils % 2.0 Basophils % 0.6 Nucleated RBC % (0.0-0.3) % 0.0 Absolute Neutrophils (1.2-6.7) 10^3/uL 4.73 Absolute Lymphocytes (1.2-3.4) 10^3/uL 3.25 Absolute Monocytes (0.1-0.8) 10^3/uL 0.60 Absolute Eosinophils (0.0-0.7) 10^3/uL 0.18 Absolute Basophils (0.0-0.2) 10^3/uL 0.05 Sodium (136-145) mmol/L 138 Potassium (3.5-5.1) mmol/L 3.9 Chloride (98-107) mmol/L 103 Carbon Dioxide (21.0-32.0) mmol/L 25.3 Anion Gap (3-11) mmol/L 9.7 BUN (7-18) mg/dL 15 Creatinine (0.55-1.02) mg/dL 0.9 Est GFR (CKD-EPI 2020) (mL/min/1.73m2) 83.92 Glucose (74-106) mg/dL 106 Calcium (8.5-10.1) mg/dL 9.3 Total Bilirubin (0.2-1.0) mg/dL 0.2 AST (15-37) U/L 15 ALT (14-59) U/L 24 Alkaline Phosphatase (46-116) U/L 71 Total Protein (6.4-8.2) g/dL 7.3 Albumin (3.4-5.0) g/dL 3.5 Lipase (16-77) U/L 64 HPI <KAMI Solorio - Last Filed: 07/20/23 17:05> General Date/Time Provider Initiated Documentation: 07/17/23 14:58 . HPI Narrative: This 37-year-old female presents with right upper quadrant pain which is been intermittent over the course of the past several days after eating fatty food. Denies fever or chills. Had a turkey with stuffing salad today and states her pain increased. Describes pressure in her right upper quadrant, nausea without vomiting. Normal stools per patient. Denies chest pain or shortness of breath. Denies any exacerbating or alleviating factors. Related Data Home Medications Medication Instructions Recorded Confirmed ibuprofen 600 mg tablet 600 mg PO Q6H PRN PRN Mild To 05/07/18 07/18/23 Moderate Pain #30 tabs loratadine 10 mg tablet (Claritin) 10 mg PO DAILY 01/18/22 07/18/23 magnesium 250 mg tablet 250 mg PO DAILY 01/18/22 07/18/23 multivitamin (Multiple Vitamins 1 tab PO DAILY 01/18/22 07/18/23 tablet) metronidazole 500 mg tablet 500 mg PO BID #14 tabs 10/18/22 07/18/23 amoxicillin 500 mg-potassium 1 tab PO BID #14 tabs 07/17/23 07/18/23 clavulanate 125 mg tablet (Augmentin) omeprazole 20 mg capsule,delayed 20 mg PO BID #60 caps 07/18/23 07/18/23 release Previous Rx's Medication Instructions Recorded ibuprofen 600 mg tablet 600 mg PO Q6H PRN PRN Mild To 05/07/18 Moderate Pain #30 tabs metronidazole 500 mg tablet 500 mg PO BID #14 tabs 10/18/22 amoxicillin 500 mg-potassium 1 tab PO BID #14 tabs 07/17/23 clavulanate 125 mg tablet (Augmentin) omeprazole 20 mg capsule,delayed 20 mg PO BID #60 caps 07/18/23 release Allergies Allergy/AdvReac Type Severity Reaction Status Date / Time No Known Drug Allergies Allergy Verified 10/18/22 11:37 General Stated Complaint: Abd Prob YANCY: 3 PFSH <KAMI Soloiro - Last Filed: 07/20/23 17:05> All Active Problems Abdominal pain (Acute) Biliary colic (Acute) Acute cholecystitis (Acute) Vaginal burning (Acute) Postop check (Acute) Asthma (Acute) exercise induced as a child 09/22/17: cold induced as of last year, inhaler initiated. Abnormal uterine bleeding (AUB) (Chronic) 02/2020. Nexplanon placed. Initially improved. 01/2022. BTB resulted in Nexplanon removal. 04/2022. Hydrothermal endometrial ablation. 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 03/2020. Report forwarded to pt's PCP. Obesity (Chronic) 03/2022 BMI 46 Anal fissure and fistula (Acute) [place] ( in [place] [facility] [place] Medical History Contraception 02/2020. Nexplanon insertion. Used for menstrual regulation. 01/2022. Nexplanon out / AUB. 04/2022. Laparoscopic bilateral salpingectomy. HPV in female 2014 Nl Pap/+ HPV 2016 Nl Pap/+ HPV. 10/2016 Colpo bx: Normal. Plan repeat in one year. Perianal cyst pt reports periananl cyst repair at [facility] April 2021 Family History Father Pancreatic cancer Essential hypertension Hyperlipidemia Grandfather Heart disease Myocardial infarction Social History Smoking/Tobacco Use Status: Never Smoking risk assessment performed?: Yes Alcohol Intake: never Drug use: Never Substance use type: does not use Household members: children and other Details: Daughter Yaneth ~2yo Number of Children: 1 current occupation: [employer] [place] Sexually active: No Do you feel safe at home: Yes Do you feel safe in your relationship?: Yes Female Reproductive History Menstrual control method: condoms History History 2 Para 1 Hx # Term Pregnancies Multiple births Hx # Pregnancies Ectopic pregnancies AB induced Hx Number of Living Children AB spontaneous Course <KAMI Solorio - Last Filed: 07/20/23 17:05> Vital Signs Vital signs: Vital Signs Temperature 36.4 C 07/17/23 14:51 Pulse 83 07/17/23 14:51 Respiratory Rate 18 07/17/23 14:51 Blood Pressure 155/80 H 07/17/23 14:51 Pulse Oximetry 100 07/17/23 14:51 Temperature 36.4 C 07/17/23 14:51 Pulse 83 07/17/23 14:51 Respiratory Rate 18 07/17/23 14:51 Blood Pressure 155/80 H 07/17/23 14:51 Blood Pressure Position Sitting 07/17/23 14:51 Pulse Oximetry 100 07/17/23 14:51 Oxygen Delivery Method Room Air 07/17/23 14:51 Oxygen Flow Rate 0 07/17/23 14:51 Pain Level 7 07/17/23 14:51 Sign Out <KAMI Solorio - Last Filed: 07/20/23 17:05> Sign Out Data: Sign Out Comment: pending US and labs/dispo Last updated by Barbara Reynolds PA at 07/17/23 15:44
[2023-07-17] MEDS: ACETAMINOPHEN 1,000 MG/100 ML BTL 400 MG IVPB (15:28)
[2023-07-17] MEDS: Ondansetron 4 MG/2 ML VIAL IVP (15:29)
[2023-07-17 15:37] LABS: Abs Immature Grans 0.03 10^3/uL (0.0-0.06); Absolute Basophil Count 0.05 10^3/uL (0.0-0.2); Absolute Eosinophil Count 0.18 10^3/uL (0.0-0.7); Absolute Lymphocyte Count 3.25 10^3/uL (1.2-3.4); Absolute Neutrophil Count 4.73 10^3/uL (1.2-6.7); Basophils % 0.6; HCT 39.1 % (36.0-46.0); HGB 12.5 g/dL (11.2-15.7); Immature Grans % 0.3; Lymphocytes % 36.8; MCH 28.3 pg (27.0-33.0); MCV 89 fL (80-95); MPV 9.4 fL (8.0-11.0); Monocytes % 6.8; Neutrophils % 53.5; Platelet Count 209 10^3/uL (130-400); RBC 4.42 10^6/uL (3.93-5.22); RDW 12.7 % (11.7-14.6); RDW-SD 41.2 fL; WBC 8.84 10^3/uL (4.4-10.8)
[2023-07-17 15:57] LABS: ALT 24 U/L (14-59); AST 15 U/L (15-37); Albumin 3.5 g/dL (3.4-5.0); Alkaline Phosphatase 71 U/L (46-116); Anion Gap 9.7 mmol/L (3-11); BUN 15 mg/dL (7-18); Bilirubin, Total 0.2 mg/dL (0.2-1.0); CO2 25.3 mmol/L (21.0-32.0); CREATININE 0.9 mg/dL (0.55-1.02); Calcium 9.3 mg/dL (8.5-10.1); Chloride 103 mmol/L (98-107); Estimated GFR 83.92 (mL/min/1.73m2); Glucose 106 mg/dL (74-106); Lipase 64 U/L (16-77); Potassium 3.9 mmol/L (3.5-5.1); Sodium 138 mmol/L (136-145); Total Protein 7.3 g/dL (6.4-8.2)
[2023-07-17] MEDS: Lactated Ringers 1,000 ML 1000 ML IV (16:00)
[2023-07-17 17:52] VITALS: BP 127/79; PULSE 79; TEMP 36.7; O2SAT 99
[2023-07-17 17:59] LABS: Source Nasal/Nares
[2023-07-17 18:30] LABS: COVID-19 PCR Negative (Negative)
--- NOTE | 2023-07-17 18:54 | W.PM.HP.N ---
Date of service: 07/17/23 Time of Service: 18:54 Assessment and Plan Assessment and plan (1) Biliary colic: Status: Acute Assessment and plan: Based on the history, physical exam, labs and imaging, I do not think this is acute cholecystitis. I suppose biliary colic is still within the differential, although the absence of obvious gallstones on the ultrasound seem to make this a little less likely. Biliary dyskinesia could also be considered here. We also talked about peptic ulcer disease or simple gastritis as a cause as well. Her current abdominal exam is very reassuring, as are her vital signs. For now, I think we can try to manage this as an outpatient, and we can discharge tonight with follow-up tomorrow. I did provide a prescription for some Augmentin, as well as omeprazole in the case that this is either acute cholecystitis or gastritis. We will see how her symptoms evolve over the next few days. If she improves, then I probably follow-up with a another right upper quadrant ultrasound, or more likely a HIDA scan to rule out biliary dyskinesia. If her symptoms fail to improve, or she develops any abnormalities in her vital signs or labs, then we could give reconsideration to cholecystectomy at that point. History of Present Illness History of Present Illness Chief Complaint: abdominal pain Narrative: Cele is 37 years old, she comes to the emergency department today after approximately 3 to 4 days of prandial, mid epigastric heaviness and discomfort. It seems to be a little worse today after eating some turkey and stuffing with salad. Otherwise, she tells me that it comes on almost immediately after the onset of eating. It lasts for about an hour or so. She has tried some Tums with minimal relief. It is not associated with any nausea or vomiting. She had yogurt yesterday without any symptoms. In the emergency department, she underwent ultrasound of the right upper quadrant that demonstrated some gallbladder wall thickening. I do not see any evidence of gallstones. There is no pericholecystic fluid, and apparently was negative for Barrow sign. 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 Past surgical history significant for the above-mentioned and anal fistula, as well as a laparoscopic salpingectomy. Father had pancreatic cancer. Otherwise negative family history Review of Systems Constitutional Constitutional: Denies body ache(s), Denies fatigue, Denies fever(s), Denies poor appetite and Denies weight loss Cardiovascular Cardiovascular: Denies chest pain and Denies dyspnea Respiratory Respiratory: Denies chest congestion, Denies cough and Denies dyspnea Gastrointestinal Gastrointestinal: Reports abdominal pain, Denies belching, Denies bloating, Denies change in stool character, Denies constipation, Denies nausea and Denies vomiting Musculoskeletal Musculoskeletal: Reports system reviewed and no additional complaints, except as documented Neurologic Neurologic: Reports system reviewed and no additional complaints, except as documented Psychiatric Psychiatric: Reports system reviewed and no additional complaints, except as documented Endocrine Endocrine: Denies fatigue Hematologic/Lymphatic Hematologic/Lymphatic: Denies easy bleeding and Denies easy bruising PFSH All Active Problems Biliary colic (Acute) Acute cholecystitis (Acute) Vaginal burning (Acute) Postop check (Acute) Asthma (Acute) exercise induced as a child 09/22/17: cold induced as of last year, inhaler initiated. Abnormal uterine bleeding (AUB) (Chronic) 02/2020. Nexplanon placed. Initially improved. 01/2022. BTB resulted in Nexplanon removal. 04/2022. Hydrothermal endometrial ablation. 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 03/2020. Report forwarded to pt's PCP. Obesity (Chronic) 03/2022 BMI 46 Anal fissure and fistula (Acute) s/p surgical repair ( in stages) at [facility] [place]. Medical History Contraception 02/2020. Nexplanon insertion. Used for menstrual regulation. 01/2022. Nexplanon out 11/14 AUB. 04/2022. Laparoscopic bilateral salpingectomy. HPV in female 2014 Nl Pap/+ HPV 2016 Nl Pap/+ HPV. 10/2016 Colpo bx: Normal. Plan repeat in one year. 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[place] Sexually active: No Do you feel safe at home: Yes Do you feel safe in your relationship?: Yes Female Reproductive History Menstrual control method: condoms History History 2 Para 1 Hx # Term Pregnancies Multiple births Hx # Pregnancies Ectopic pregnancies AB induced Hx Number of Living Children AB spontaneous Meds Allergies and Home Medications Allergies Allergy/AdvReac Type Severity Reaction Status Date / Time No Known Drug Allergies Allergy Verified 10/18/22 11:37 Home Medications Medication Instructions Recorded Confirmed Type ibuprofen 600 mg tablet 600 mg PO Q6H PRN PRN Mild To 05/07/18 07/17/23 Rx Moderate Pain #30 tabs loratadine 10 mg tablet (Claritin) 10 mg PO DAILY 01/18/22 07/17/23 History magnesium 250 mg tablet 250 mg PO DAILY 01/18/22 07/17/23 History multivitamin (Multiple Vitamins 1 tab PO DAILY 01/18/22 07/17/23 History tablet) metronidazole 500 mg tablet 500 mg PO BID #14 tabs 10/18/22 Rx amoxicillin 500 mg-potassium 1 tab PO BID #14 tabs 07/17/23 Rx clavulanate 125 mg tablet (Augmentin) omeprazole 20 mg capsule,delayed 20 mg PO DAILY #30 caps 07/17/23 Rx release Exam Const General: cooperative and comfortable Nutritional Appearance: overweight Orientation: alert, awake and oriented x3 HENMT Head: normal to inspection Eyes General: appearance normal, both eyes and all related structures Neck Neck: normal visual inspection, full ROM and no lymphadenopathy GI Inspection: normal to inspection and non-distended Palpation: soft, no guarding, no hernias and tender (Minimal midepigastric and right upper quadrant) Percussion: normal to percussion Auscultation: normal bowel sounds Skin General skin exam: no rashes or lesions noted Neuro General: patient alert, patient awake and patient oriented x3 Results Labs 07/17/23 15:20 07/17/23 15:20 Labs: Laboratory Results - last 24 hr 07/17/23 07/17/23 07/17/23 15:20 15:20 17:57 WBC 8.84 RBC 4.42 Hgb 12.5 Hct 39.1 MCV 89 MCH 28.3 MCHC 32.0 RDW 12.7 Plt Count 209 MPV 9.4 Immature Gran % 0.3 Neutrophils % 53.5 Lymphocytes % 36.8 Monocytes % 6.8 Eosinophils % 2.0 Basophils % 0.6 Nucleated RBC % 0.0 Absolute Neutrophils 4.73 Absolute Lymphocytes 3.25 Absolute Monocytes 0.60 Absolute Eosinophils 0.18 Absolute Basophils 0.05 Sodium 138 Potassium 3.9 Chloride 103 Carbon Dioxide 25.3 Anion Gap 9.7 BUN 15 Creatinine 0.9 Est GFR (CKD-EPI 2020) 83.92 Glucose 106 Calcium 9.3 Total Bilirubin 0.2 AST 15 ALT 24 Alkaline Phosphatase 71 Total Protein 7.3 Albumin 3.5 Lipase 64 COVID-19 Source Nasal/Nares SARS-CoV-2 (PCR) Negative Last Vital Signs Temp 98.1 F 07/17/23 17:52 Pulse 79 07/17/23 17:52 Resp 18 07/17/23 14:51 BP 127/79 07/17/23 17:52 Pulse Ox 99 07/17/23 17:52 Time Spent Time spent with Patient: <40 minutes Time was spent: preparing to see the patient(eg.review tests), ordering medications,tests, procedures, indepentently interpreting results and counseling the patient
[2023-07-17 18:59] VITALS: BP 136/90; PULSE 76; RESP 19; TEMP 36.9; O2SAT 100
--- NOTE | 2023-07-17 19:30 | DSE_ITS ---
Date of service: 07/17/23 Time of Service: 19:30 DS: Diagnosis Discharge Diagnosis (1) Biliary colic: Status: Acute Discharge Plan Disposition Condition: Stable Condition: Good Discharge Details Reason For Visit: acute cholecystitis Admit Date/Time: 07/17/23 17:20 Admit Provider: Xiang Arvizu Attending Provider: Xiang Arvizu Primary Care Provider: Jose Velasquez Hospital Course Hospital Course: Cele is 37 years old, and she comes to the emergency department with several days of midepigastric, and slightly right-sided abdominal heaviness and pressure. In the emergency department, she underwent an ultrasound that demonstrated some gallbladder wall thickening without pericholecystic fluid. Labs were all normal. We talked about the differential diagnosis for her discomfort, which could still certainly be cholecystitis, although the absence of pericholecystic fluid and significant tenderness with normal labs would point against that. Gastritis and/or peptic ulcer disease were also within the differential diagnosis. Given her overall clinical picture, I do think it is reasonable to proceed with a trial of nonoperative management, and given her overall appearance, vital signs, and labs, I think discharge home with short interval follow-up is reasonable. Home Meds and New Rx's Prescriptions: New amoxicillin-pot clavulanate [Augmentin] 500-125 mg tablet 1 tab PO BID Qty: 14 0RF Rx Instructions: 1 tablet by mouth in the morning, and 1 tablet by mouth in the evening omeprazole 20 mg capsule,delayed release(DR/EC) 20 mg PO DAILY Qty: 30 0RF Rx Instructions: Take 1 tablet by mouth every day Continued magnesium 250 mg tablet 250 mg PO DAILY multivitamin [Multiple Vitamins] Tablet 1 tab PO DAILY loratadine [Claritin] 10 mg tablet 10 mg PO DAILY metronidazole 500 mg tablet 500 mg PO BID Qty: 14 0RF ibuprofen 600 MG tablet 600 mg PO Q6H PRN PRN (Reason: Mild To Moderate Pain) Qty: 30 2RF Discontinued fluconazole [Diflucan] 150 mg tablet 150 mg PO ONCE Qty: 1 1RF Rx Instructions: as a single dose Discharge Instructions Instructions: Low Fat Diet (DC), Biliary Colic (GEN) Additional Instructions: Cele, like we talked about in the hospital, have provided a prescription for Augmentin, which is an antibiotic, as well as omeprazole, which is an antacid medication. Please take these as instructed. For the next few days, I would like you to try to avoid any significant amount of fat in your diet. I have attached some information here about low-fat options for eating. For the next 24 to 48 hours, simple foods like soup broths, Jell-O's, rice and toast and fruits and vegetables are all very reasonable. Assuming you start to feel better at that point you could start to add some more regular foods and see how it goes. I will have the office reach out to you tomorrow. Dr. Harley will be seeing some patients in the office, and Dr. Temple will be operating. Hopefully you will need either, but we can certainly make arrangements to help take care of you either way if needed. Activity:: Activity as Tolerated Diet:: Low-fat DS: Summary Time Spent with Patient providing and/or coordinating discharge services: Less than 30 minutes Status at Discharge Functional status at discharge: independent ambulation Overall status at discharge: patient is not back to baseline Mental Status: mental status grossly normal Speech and Movement: speech and movement normal Mood: congruent mood Affect: normal affect Exam GI Other: Abdomen is soft, with mild mid epigastric and slightly right-sided abdominal tenderness. She has no rebound or guarding. Psych Mental Status: mental status grossly normal Speech and Movement: speech and movement normal Mood: congruent mood Affect: normal affect DS: Data Vitals/I&O Vitals and I&O: Vital Signs Temperature 98.4 F 07/17/23 18:59 Temperature Source Tympanic 07/17/23 18:59 Pulse 76 07/17/23 18:59 Respiratory Rate 19 07/17/23 18:59 Respiratory Effort Normal, Non-Labored 07/17/23 19:05 Blood Pressure 136/90 07/17/23 18:59 Blood Pressure Position Sitting 07/17/23 14:51 Pulse Oximetry 100 07/17/23 18:59 Oxygen Delivery Method Room Air 07/17/23 18:59 Oxygen Flow Rate 0 07/17/23 18:59 Pain Level 0 07/17/23 18:59 Intake & Output 07/16/23 07/17/23 07/17/23 23:59 11:59 23:59 Intake Total 1100 / 1100 Balance 1100 / 1100 Weight 262 lb Intake: IV 1100 / 1099 Data Completed and Pending Labs on day of discharge: Labs from last 24 hours 07/17/23 07/17/23 07/17/23 17:57 15:20 15:20 WBC 8.84 RBC 4.42 Hgb 12.5 Hct 39.1 MCV 89 MCH 28.3 MCHC 32.0 RDW 12.7 Plt Count 209 MPV 9.4 Immature Gran % 0.3 Neutrophils % 53.5 Lymphocytes % 36.8 Monocytes % 6.8 Eosinophils % 2.0 Basophils % 0.6 Nucleated RBC % 0.0 Absolute Neutrophils 4.73 Absolute Lymphocytes 3.25 Absolute Monocytes 0.60 Absolute Eosinophils 0.18 Absolute Basophils 0.05 Sodium 138 Potassium 3.9 Chloride 103 Carbon Dioxide 25.3 Anion Gap 9.7 BUN 15 Creatinine 0.9 Est GFR (CKD-EPI 2020) 83.92 Glucose 106 Calcium 9.3 Total Bilirubin 0.2 AST 15 ALT 24 Alkaline Phosphatase 71 Total Protein 7.3 Albumin 3.5 Lipase 64 COVID-19 Source Nasal/Nares SARS-CoV-2 (PCR) Negative PFSH All Active Problems Biliary colic (Acute) Acute cholecystitis (Acute) Vaginal burning (Acute) Postop check (Acute) Asthma (Acute) exercise induced as a child 09/22/17: cold induced as of last year, inhaler initiated. Abnormal uterine bleeding (AUB) (Chronic) 02/2020. Nexplanon placed. Initially improved. 01/2022. BTB resulted in Nexplanon removal. 04/2022. Hydrothermal endometrial ablation. 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 03/2020. Report forwarded to pt's PCP. Obesity (Chronic) 03/2022 BMI 46 Anal fissure and fistula (Acute) s/p surgical repair ( in stages) at [facility] [place]. Medical History Contraception 02/2020. Nexplanon insertion. Used for menstrual regulation. 01/2022. Nexplanon out / AUB. 04/2022. Laparoscopic bilateral salpingectomy. 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 10/2016 Colpo bx: Normal. Plan repeat in one year. 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
== END 2023-07-17 21:06 | disposition home or self-care (01) | DRG 445 ==
LOC: ER 17:19 → MS 18:52
PROVIDERS: Physician Assistant; Admitting Provider Surgery; Emergency Provider Registered Nurse Emergency; PCP Family Medicine Adult Medicine; Visit Provider Surgery
DX: K80.50 Calculus of bile duct without cholangitis or cholecystitis without obstruction (principal); Z68.41 Body mass index [BMI] 40.0-44.9, adult; J45.998 Other asthma; E66.9 Obesity, unspecified; D73.4 Cyst of spleen
CPT/HCPCS: 80053; 83690; 87635; 93005; 96365; 96375; 96376; 99285; 76705; 85025; 93010; J0131; J2405

== ENCOUNTER 2023-07-18 13:09 | Outpatient (CLI) | payer BC, SELFPAY ==
[2023-07-18 11:55] LABS: Abs Immature Grans 0.03 10^3/uL (0.0-0.06); Absolute Basophil Count 0.05 10^3/uL (0.0-0.2); Absolute Eosinophil Count 0.16 10^3/uL (0.0-0.7); Absolute Lymphocyte Count 3.41 10^3/uL (1.2-3.4); Absolute Monocyte Count 0.49 10^3/uL (0.1-0.8); Absolute Neutrophil Count 4.93 10^3/uL (1.2-6.7); Basophils % 0.6; Eosinophils % 1.8; HCT 38.7 % (36.0-46.0); HGB 12.6 g/dL (11.2-15.7); Immature Grans % 0.3; Lymphocytes % 37.6; MCH 28.7 pg (27.0-33.0); MCHC 32.6 % (32.0-36.0); MCV 88 fL (80-95); MPV 9.3 fL (8.0-11.0); Monocytes % 5.4; Neutrophils % 54.3; Platelet Count 218 10^3/uL (130-400); RBC 4.39 10^6/uL (3.93-5.22); RDW 12.8 % (11.7-14.6); RDW-SD 41.7 fL; WBC 9.07 10^3/uL (4.4-10.8)
[2023-07-18 12:13] LABS: ALT 26 U/L (14-59); AST 18 U/L (15-37); Albumin 3.5 g/dL (3.4-5.0); Alkaline Phosphatase 71 U/L (46-116); Anion Gap 9.2 mmol/L (3-11); BUN 14 mg/dL (7-18); Bilirubin, Total 0.3 mg/dL (0.2-1.0); CO2 24.8 mmol/L (21.0-32.0); Calcium 9.2 mg/dL (8.5-10.1); Chloride 104 mmol/L (98-107); Estimated GFR 73.95 (mL/min/1.73m2); Glucose 98 mg/dL (74-106); Potassium 3.9 mmol/L (3.5-5.1); Sodium 138 mmol/L (136-145); Total Protein 7.4 g/dL (6.4-8.2)
--- OUTSIDE RECORDS SUMMARY | 2023-07-18 13:12 | XMS_ITS | Patient Health Record ---
Author Name Unknown Organization [facility] Address [address] [place] [address] Care Team Providers Care Chute Puller Name Role Phone CAMMIE ALCARAZ Primary Care Provider TERENCE MADRIGAL Unavailable [phone] ALLERGIES No Known Allergies RESULTS Component Value Reference Range Notes LIPID PROFILE Reviewed date:07/09/2023 07:34:55 AM Interpretation: [...] 23.4 11.0 - Ordering Provider: TERENCE MADRIGAL TSH (reflex to FT4) Reviewed date:07/09/2023 07:35:17 AM Interpretation: Performing Lab: Notes/Report: CBC, WITH AUTO DIFF Reviewed date:07/09/2023 07:34:43 AM Interpretation: Performing Lab: Notes/Report: Neutro Auto 54.2 42.2-75.2 % Lymph Auto 36.5 20.5-51.1 % [place] Auto 5.5 1.7-9.3 % Eos, Auto 2.70 0.00-3.00 % Basophil Auto 0.8 0.0-0.8 % Neutro Absolute 4.0 1.4-6.5 K/mcL Lymph Absolute 2.7 1.2-3.4 K/mcL [place] Absolute 0.4 0.1-0.6 K/mcL Eos Absolute 0.2 0.0-0.2 K/mcL Baso Absolute 0.1 0.0-0.2 K/mcL COMPREHENSIVE METABOLIC PROF ILE Reviewed date:07/09/2023 07:35:07 [...] 1.3 1.0-2.5 g/dL Globulin 3.0 2.3-3.5 g/dL CBC w/ Diff Reviewed date:07/09/2023 07:34:31 AM Interpretation: Performing Lab: Notes/Report: WBC 7.3 4.8-10.8 K/mcL RBC 4.45 4.20-5.40 Million/mcL Hgb 12.7 12.0-16.0 g/dL Hct 40.5 37.0-47.0 % MCV 91.0 81.0-99.0 fL MCH 28.5 27.0-31.0 pg Platelets 220 130-400 K/mcL MPV 9.5 7.4-10.4 fL MCHC 31.4 32.0-36.0 g/dL RDW-CV 12.9 11.5-14.5 % - Ordering Provider: TERENCE MADRIGAL REASON FOR REFERRAL No Information MEDICATIONS Medication [...] calories (E66.01) Active confirmed Morbid obesity (disorder) (596673250) Problem Obesity, unspecified (E66.9) Active confirmed Obesity (849179972) Problem Sleep related bruxism (G47.63) Active confirmed Sleep-relat ed bruxism (562442918) Problem Acne vulgaris (L70.0) Active confirmed Acne vulgaris (33314308) Problem Excessive and frequent menstruation with irregular cycle (N92.1) Active confirmed Intermenstrual bleeding - irregular (21899068) Problem Personal history of COVID-19 (Z86.16) Active confirmed History of disease caused by Severe acute respiratory syndrome coronavirus 2 (situation) (8750506020253980 05) Encounters Encounter Location Date Provider Diagnosis [facility] [address] [place] [address] 07/03/2023 TERENCE BRIONESKINS Encounter for genera l [...] Given LS to have fasting labs at [facility]. Immunizations reviewed and discussed and flu shot [...] Name:TERENCE Delmy CHAVEZ, 07/31/2023 03:45:00 PM, [address] [facility], [place], [address], Provider Name:TERENCE CHAVEZ, 07/07/2024 02:45:00 PM, [address] [facility], [place], [address], Insurance Providers Payer Name Payer Address Payer Phone Subscriber Number Group Number Insured Name Patient Relationship to Insured Coverage Start Date Coverage End Date [employer] [place] [address] [place] [phone] [id number] Cele Romero Self - patient is the insured 9 MEDICAL (GENERAL) HISTORY Medical History History ICD Code 10-04-2016 Pap/hpv, Dr Hutchison, HPV posit meliton 02-15-2021 colonoscopy Surgical History Surgery Date(Month/Year) tonsillectomy wisdom teeth extraction child 04/[address] [facility] for surgical pro cedure 06/2019 colonoscopy 02/15/2021 Hydrothermal endometrial alb ation. Laparoscopic bilateral salpingectomy, and endometrial biopsy 05/01/2022
== END 2023-07-18 13:10 | disposition home or self-care (01) ==
LOC: LBO 13:10
PROVIDERS: PCP Family Medicine Adult Medicine; Visit Provider Surgery
DX: R10.9 Unspecified abdominal pain (principal)
CPT/HCPCS: 36415; 80053; 85025

== ENCOUNTER 2023-08-12 16:30 | Outpatient (REF) | payer BC, SELFPAY ==
--- OUTSIDE RECORDS SUMMARY | 2023-08-12 16:33 | XMS_ITS | Patient Health Record ---
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 [employer] Name Role Phone CAMMIE ALCARAZ Primary Care Provider TERENCE MADRIGAL Unavailable [phone] ALLERGIES No Known Allergies RESULTS Component Value [...] date:07/09/2023 07:35:17 AM Interpretation: Performing Lab: Notes/Report: CBC w/ Diff Reviewed date:07/09/2023 07:34:31 AM Interpretation: Performing Lab: Notes/Report: WBC 7.3 4.8-10.8 K/mcL RBC 4.45 4.20-5.40 Million/mcL Hgb 12.7 12.0-16.0 g/dL Hct 40.5 37.0-47.0 % MCV 91.0 81.0-99.0 fL MCH 28.5 27.0-31.0 pg Platelets 220 130-400 K/mcL MPV 9.5 7.4-10.4 fL MCHC 31.4 32.0-36.0 g/dL RDW-CV 12.9 11.5-14.5 % - Ordering Provider: TERENCE MADRIGAL CBC, WITH AUTO DIFF Reviewed date:07/09/2023 07:34:43 AM Interpretation: Performing Lab: Notes/Report: Neutro Auto 54.2 42.2-75.2 % Lymph Auto 36.5 20.5-51.1 % [place] Auto 5.5 1.7-9.3 % Eos, Auto 2.70 0.00-3.00 % Basophil Auto 0.8 0.0-0.8 % Neutro Absolute 4.0 1.4-6.5 K/mcL Lymph Absolute 2.7 1.2-3.4 K/mcL [place] Absolute 0.4 0.1-0.6 K/mcL Eos Absolute 0.2 [...] 1.3 1.0-2.5 g/dL Globulin 3.0 2.3-3.5 g/dL REASON FOR REFERRAL No Information MEDICATIONS Medication SIG (Take, Route, Fr equency, Duration) Notes Start Date End Date Status Wegovy 0.25 MG/0.5ML 0.5 ml Subcutaneous once a week for 30 day(s) 07/03/2023 Active Magnesium - as directed Orally Active Multivitamin - 1 tablet Orally Once a day for 30 day(s) Active Loratadine 10 MG 1 tablet Orally Once a day for 30 day(s) Active Probiotic - as directed Orally Active IMMUNIZATIONS Vaccine Route Administration Date Status [...] calories (E66.01) Active confirmed Morbid obesity (disorder) (345287688) Problem Obesity, unspecified (E66.9) Active confirmed Obesity (780459669) Problem Sleep related bruxism (G47.63) Active confirmed Sleep-relat ed bruxism (649962822) Problem Acne vulgaris (L70.0) Active confirmed Acne vulgaris (55334782) Problem Excessive and frequent menstruation with irregular cycle (N92.1) Active confirmed Intermenstrual bleeding - irregular (60445396) Problem Personal history of COVID-19 (Z86.16) Active confirmed History of disease caused by Severe acute respiratory syndrome coronavirus 2 (situation) (5175749917617239 05) VITAL SIGNS Heart Rate 97 /min 07/03/2023 Temperature 97.4 degrees Fahrenheit 07/03/2023 Respiratory Rate 16 /min 07/03/2023 Oximetry 97 % 07/03/2023 Blood pressure diastolic 70 mm Hg 07/03/2023 Height 66 in 07/03/2023 Blood pressure systolic 116 mm Hg 07/03/2023 Weight 262 lbs 07/03/2023 BMI 42.28 kg/m2 07/03/2023 Encounters Encounter Location Date Provider Diagnosis [facility] [address] [place] [address] 07/03/2023 TERENCE MADRIGAL Encounter for genera l adult medical examination without abnormal findings Z00.00 ; Encounter for immunization Z23 ; Morbid (severe) obesity due to excess calories E66.01 and Neoplasm of uncertain behavior of skin D48.5 [facility] [address] [place] [address] 07/31/2023 TERENCE MADRIGAL ASSESSMENTS Encounter Date Diagnosis Assessment Notes Treatment Notes Treatment Clinical Notes 07/03/2023 Encounter for general adult medical examination without abnormal findings (ICD-10 - Z00.00) Pt educated. Given LS to have fasting labs at [facility]. Immunizations reviewed and discussed and [...] OF TREATMENT Next Appt Details Provider Name:TERENCE MATTHEWS NS, 07/07/2024 02:45:00 PM, [address] [facility], [place], [address], Insurance Providers Payer Name Payer Address Payer Phone Subscriber Number Group Number Insured Name Patient Relationship to Insured Coverage Start Date Coverage End Date [employer] [place] [address] [place] [phone] [id number] Nick Cele Self - patient is the insured 9 MEDICAL (GENERAL) HISTORY Medical History History ICD Code 12 Pap/hpv, Dr Hutchison, HPV posit meliton 02-15-2021 colonoscopy Surgical History Surgery Date(Month/Year) tonsillectomy wisdom teeth extraction child 04/2018 Patient admitted to [facility] for surgical pro cedure 06/2019 colonoscopy 02/15/2021 Hydrothermal endometrial alb ation. Laparoscopic bilateral salpingectomy, and endometrial biopsy 05/01/2022
== END 2023-08-12 16:31 | disposition home or self-care (01) ==
LOC: LBN 16:30
PROVIDERS: PCP Family Medicine Adult Medicine; Visit Provider Nurse Practitioner Family
DX: J02.9 Acute pharyngitis, unspecified (principal)
CPT/HCPCS: 87070

== ENCOUNTER 2024-01-12 12:02 | Emergency (ER) | payer BC, SELFPAY ==
[2024-01-12 12:06] VITALS: BP 164/105; PULSE 82; RESP 16; TEMP 37.1; O2SAT 99
--- NOTE | 2024-01-12 12:20 | ED.GENADUL_ITS ---
Discharge Plan Disposition Patient Disposition: Home Condition: Good Discharge Details Clinical Impression: Enlarged lymph node, Lymphadenopathy, postauricular Primary Care Provider: Jose Velasquez ED Provider: Felisa Morales Home Meds and New Rx's Prescriptions: Continued bupropion HCl 100 mg tablet 100 mg PO BID Zepbound 2.5 mg/0.5 mL pen injector 2.5 mg subcut QWEEK magnesium 250 mg tablet 250 mg PO DAILY multivitamin [Multiple Vitamins] Tablet 1 tab PO DAILY loratadine [Claritin] 10 mg tablet 10 mg PO DAILY omeprazole 20 mg capsule,delayed release(DR/EC) See Rx Instructions .ROUTE .COMPLEX Qty: 180 3RF Dose Instruction: TAKE ONE CAPSULE BY MOUTH TWICE A DAY Rx Instructions: TAKE ONE CAPSULE BY MOUTH TWICE A DAY ibuprofen 600 MG tablet 600 mg PO Q6H PRN PRN (Reason: Mild To Moderate Pain) Qty: 30 2RF Discharge Instructions Instructions: Lymphadenopathy (ED) Additional Instructions: Labs are reassuring. Imaging is concerning for lymph node and area of discomfort. This is likely of viral etiology as I do not see area of bacterial infection around here. Please encourage hydration. As we discussed, use Aleve, once in the morning and once at night, to help with inflammation and pain. You may augment this throughout the day with Tylenol as needed. If you develop increased swelling, fever/chills, redness, warmth, drainage or other new/worsening symptom please seek care urgently once again. Otherwise, please follow-up with your primary care at your upcoming scheduled appointment. Referrals: Jose Velasquez [Primary Care Provider] - [facility] General Date/Time Provider Initiated Documentation: 01/12/24 12:10 . Limitations to Documentation: no limitations . Information obtained by: patient, RN notes reviewed and old records reviewed . History of Present Illness 38 year old F presents to the emergency department with the chief complaint of right mastoid pain, described as moderate, Quality is described as aching, and is localized to the head (behind righ tear). Patient reports no radiation. Patient started experiencing this week(s) and it has been constant. No relieving factors improve symptom(s), No exacerbating factors reported . Patient notes no other symptoms.. Patient did receive the following treatments prior to arrival, none Related Data Home Medications Medication Instructions Recorded Confirmed ibuprofen 600 mg tablet 600 mg PO Q6H PRN PRN Mild To 05/07/18 01/12/24 Moderate Pain #30 tabs loratadine 10 mg tablet (Claritin) 10 mg PO DAILY 01/18/22 01/12/24 magnesium 250 mg tablet 250 mg PO DAILY 01/18/22 01/12/24 multivitamin (Multiple Vitamins 1 tab PO DAILY 01/18/22 01/12/24 tablet) omeprazole 20 mg capsule,delayed See Rx Instructions .Route 08/12/23 01/12/24 release .COMPLEX #180 caps bupropion HCl 100 mg tablet 100 mg PO BID 01/12/24 01/12/24 tirzepatide (weight loss) 2.5 2.5 mg subcut QWEEK 01/12/24 01/12/24 mg/0.5 mL subcutaneous pen injector (Zepbound) Previous Rx's Medication Instructions Recorded ibuprofen 600 mg tablet 600 mg PO Q6H PRN PRN Mild To 05/07/18 Moderate Pain #30 tabs omeprazole 20 mg capsule,delayed See Rx Instructions .Route 08/12/23 release .COMPLEX #180 caps Allergies Allergy/AdvReac Type Severity Reaction Status Date / Time No Known Allergies Allergy Verified 01/12/24 12:11 General Stated Complaint: GenMedical YANCY: 3 Review of Systems Constitutional Constitutional: Reports as per HPI, Denies body ache(s), Denies chills, Denies fatigue, Denies fever(s) and Denies headache(s) Eyes Eyes: Reports as per HPI, Denies blurry vision, Denies change in vision, Denies eye discharge and Denies irritation ENT Ears, Nose, Mouth, and Throat: Reports as per HPI, Denies dental pain, Denies ear discharge, Denies otalgia, Denies headache(s), Reports hearing loss (feels, muffled right side), Denies neck pain, Denies nose pain, Denies odynophagia, Denies tinnitus, Denies sinus pain, Denies sinus pressure, Denies sore throat, Denies throat swelling and Denies tongue swelling Cardiovascular Cardiovascular: Reports as per HPI, Denies chest pain and Denies dyspnea Respiratory Respiratory: Reports as per HPI, Denies chest congestion, Denies cough and Denies dyspnea Gastrointestinal Gastrointestinal: Reports as per HPI, Denies abdominal pain, Denies change in bowel habits, Denies nausea, Denies odynophagia and Denies vomiting Musculoskeletal Musculoskeletal: Denies neck pain Integumentary/Breasts Skin/Breast: Reports as per HPI and Denies rash Neurologic Neurologic: Reports as per HPI and Denies headache(s) Endocrine Endocrine: Denies fatigue Allergic/Immunologic Allergic/Immunologic: Denies throat swelling and Denies tongue swelling Exam Const General: cooperative, healthy appearing, comfortable, no acute distress, well developed and well groomed Nutritional Appearance: well nourished and overweight Orientation: alert and awake [facility] Head: normal to inspection, normocephalic and atraumatic Ears: hearing grossly normal bilaterally, external ears normal, TM's normal bilaterally and mastoid abnormal (tender on right, no erythema, swelling, warmth) General nose exam: external nose normal and nares normal Face and sinus: normal facial exam, sinuses nontender and face symmetric Mouth: oral mucosae normal, lip normal, tongue normal, oropharynx normal and moist mucous membranes Teeth and gingiva: dentition normal Throat: posterior oropharynx normal, tonsils normal and uvula midline Eyes General: appearance normal, both eyes and all related structures Neck Neck: normal visual inspection, full ROM, no lymphadenopathy and no meningeal signs Resp Effort & Inspection: normal respiratory effort, able to speak in complete sentences and no respiratory distress Auscultation: clear to auscultation bilaterally, no rales, no rhonchi and no wheezes Cardio Rate: regular rate Rhythm: regular rhythm Heart Sounds: S1 normal and S2 normal Skin General skin exam: no rashes or lesions noted Neuro General: patient alert and patient awake Cognition: normal cognition Speech: speech normal Gait: normal gait Course Vital Signs Vital signs: Vital Signs Temperature 37.1 C 01/12/24 12:06 Pulse 82 01/12/24 12:06 Respiratory Rate 16 01/12/24 12:06 Blood Pressure 164/105 H 01/12/24 12:06 Pulse Oximetry 99 01/12/24 12:06 Temperature 37.1 C 01/12/24 12:06 Temperature Source Tympanic 01/12/24 12:06 Pulse 82 01/12/24 12:06 Respiratory Rate 16 01/12/24 12:06 Blood Pressure 164/105 H 01/12/24 12:06 Blood Pressure Position Sitting 01/12/24 12:06 Pulse Oximetry 99 04/01/24 12:06 Oxygen Delivery Method Room Air 04/01/24 12:06 Oxygen Flow Rate 0 01/12/24 12:06 Pain Level 6 01/12/24 12:06 Comment Has been taking Advil; last dose last night. 01/12/24 12:06 Medical Decision Making Patient is a pleasant 38-year-old female without significant past medical history, presenting today with chief complaint of possible mastoiditis. She was seen at urgent care prior to arrival and had this is preliminary diagnosis in the setting of painful mastoid. No evidence of otitis media. She denies any fevers or chills. She reports that she has had increasing pain in the right mastoid over the past week and a half. Describes it as achy. States that it has been swollen compared to the contralateral side. No difficulty swallowing. Denies sore throat. No congestion. No cough. No dental pain. States she is never had a cavity, no pain with chewing. States that her hearing on that side may be more muffled. States that she can occasionally feel dizzy and states this began about half a week ago. Has never had episode like this in the past. No ear drainage. On exam, patient appears nontoxic. Right mastoid is slightly more prominent than the contralateral side but no fluctuance, erythema. 1 posterior lymph node is palpable. HEENT exam is otherwise normal. Will speak with radiology regarding imaging of the mastoid. Radiologist recommends non=con sinus CT for eval of the mastoid. Labs are unremarkable. Imaging was reviewed by radiologist. Reported to be negative. However, I did discuss with him as I did note a small round area consistent with area of discomfort. He advised this is a lymph node but patient has similar on the contralateral side. I discussed this with the patient. Advised likely viral etiology. I reexamined her scalp and ears do not see any evidence to suggest a bacterial pathology causing her enlarged lymph node. Encouraged NSAIDs, acetaminophen. Encourage hydration and supportive care. Strict return precautions were discussed. Encouraged follow-up with primary care, patient states that she has an appointment in 2 weeks. All of her questions and concerns were addressed and she is in agreement with this plan. Quality:[facility] Related Social Needs: No Data to Display PFSH All Active Problems Lymphadenopathy, postauricular (Acute) Enlarged lymph node (Acute) Abdominal pain (Acute) Biliary colic (Acute) Acute cholecystitis (Acute) Vaginal burning (Acute) Postop check (Acute) Asthma (Acute) exercise induced as a child 09/22/17: cold induced as of last year, inhaler initiated. Abnormal uterine bleeding (AUB) (Chronic) 02/2020. Nexplanon placed. Initially improved. 01/2022. BTB resulted in Nexplanon removal. 04/2022. Hydrothermal endometrial ablation. 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 03/2020. Report forwarded to pt's PCP. Obesity (Chronic) 03/2022 BMI 46 Anal fissure and fistula (Acute) s/p surgical repair ( in stages) [place] [facility] Medical History Contraception 02/2020. Nexplanon insertion. Used for menstrual regulation. 01/2022. Nexplanon out 11/14 AUB. 04/2022. Laparoscopic bilateral salpingectomy. 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 10/2016 Colpo bx: Normal. Plan repeat in one year. 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
--- NOTE | 2024-01-12 12:26 | NUR.NOTE ---
Nursing Note: pt c/o pain in r jaw/mastoid. redness and swelling, ice pack provided.
[2024-01-12] MEDS: Normal Saline 1,000 ML 1000 ML IV (12:41)
[2024-01-12 12:48] LABS: Abs Immature Grans 0.02 10^3/uL (0.0-0.06); Absolute Basophil Count 0.06 10^3/uL (0.0-0.2); Absolute Eosinophil Count 0.15 10^3/uL (0.0-0.7); Absolute Monocyte Count 0.41 10^3/uL (0.1-0.8); Absolute Neutrophil Count 4.63 10^3/uL (1.2-6.7); Basophils % 0.8; Eosinophils % 1.9; HCT 41.2 % (36.0-46.0); HGB 13.1 g/dL (11.2-15.7); Immature Grans % 0.3; Lymphocytes % 33.9; MCH 28.6 pg (27.0-33.0); MCHC 31.8 % (32.0-36.0); MCV 90 fL (80-95); MPV 9.8 fL (8.0-11.0); Monocytes % 5.1; Platelet Count 220 10^3/uL (130-400); RBC 4.58 10^6/uL (3.93-5.22); RDW 13.1 % (11.7-14.6); RDW-SD 42.9 fL; WBC 7.97 10^3/uL (4.4-10.8)
[2024-01-12 13:04] LABS: ALT 23 U/L (14-59); AST 14 U/L (15-37); Albumin 3.7 g/dL (3.4-5.0); Alkaline Phosphatase 71 U/L (46-116); Anion Gap 11.1 mmol/L (3-11); BUN 19 mg/dL (7-18); Bilirubin, Total 0.3 mg/dL (0.2-1.0); CO2 25.9 mmol/L (21.0-32.0); CREATININE 0.9 mg/dL (0.55-1.02); Calcium 9.1 mg/dL (8.5-10.1); Chloride 106 mmol/L (98-107); Glucose 105 mg/dL (74-106); Sodium 143 mmol/L (136-145); Total Protein 7.6 g/dL (6.4-8.2)
--- NOTE | 2024-01-12 13:30 | DI.CT_ITS ---
Exam(s) CT SINUS WO EXAM: CT SINUS WO CLINICAL HISTORY: question right mastoiditis. Evaluate for sinusitis. TECHNIQUE: Imaging Protocol: Axial computed tomography images with coronal and sagittal reformatted images were created and reviewed. COMPARISON: No exams were available for comparison FINDINGS: AXIAL IMAGES: Frontal sinuses: Normally aerated. Ethmoid air cells: Normally aerated. Maxillary sinuses: Normally aerated. Sphenoid sinus: Normally aerated. Ostiomeatal complexes: Patent. Osseous nasal septum: Midline. Visualized regional soft tissues: No acute findings. Orbits: Unremarkable. Bones: Unremarkable. Mastoid Air Cells: Normally aerated. There is no fluid seen in the external auditory canals or middle ear. IMPRESSION: Unremarkable examination. No evidence of mastoiditis or otitis media. RADIATION DOSE DELIVERED: Total DLP Total DLP DATA REPOSITORY: All CT scans at this facility are submitted to the National Radiology Data Registry (NRDR) Dose Index Registry (DIR) with the [employer] (ACR). RADIATION OPTIMIZATION: All CT scans at this facility use at least one of these dose optimization te chniques: automated exposure control; mA and/or kV adjustment per patient size (includes targeted exa ms where dose is matched to clinical indication); or iterative reconstruction.
== END 2024-01-12 15:17 | disposition home or self-care (01) ==
PROVIDERS: Emergency Provider Physician Assistant; PCP Family Medicine Adult Medicine
DX: R59.0 Localized enlarged lymph nodes (principal)
CPT/HCPCS: 36415; 80053; 96360; 99284; 70486; 85025

== ENCOUNTER 2024-01-15 13:39 | Outpatient (REF) | payer BC, SELFPAY ==
--- NOTE | 2024-01-15 13:25 | PAPFT_PTH ---
PATIENT: Cele Romero LOC: [facility] U#:[id number] AGE/SX: 38/F ROOM: RE01/15/[address]: Ashley Lewis : 1985 BED: DIS: 01/15/2024 SPEC #: [id number] RECD: 01/15/24 17:29 STATUS: JOYCELYN RELinus #: [id number] LI: 01/15/24 13:[address]: Ashley Lewis DEPT: [facility] Cytology RECD BY: Barbara Galan ENTERED: 01/15/24 17:29 SP TYPE: PAPFT OTHR DR: Jose Velasquez Tissues: 1 - CX/ENDOCX FOR PAP SMEARS Procedures: PAP THIN PREP/UVM Screening Comments: [id number] (UNSATISFACTORY FOR EVALUATION)
== END 2024-01-15 13:40 | disposition home or self-care (01) ==
LOC: LBN 13:39
PROVIDERS: PCP Family Medicine Adult Medicine; Visit Provider Obstetrics & Gynecology Gynecology
DX: Z87.42 Personal history of other diseases of the female genital tract (principal); Z12.4 Encounter for screening for malignant neoplasm of cervix
CPT/HCPCS: 88142

== ENCOUNTER 2024-01-15 15:27 | Outpatient (CLI) | payer BC, SELFPAY ==
[2024-01-15 14:26] LABS: Hemoglobin A1C 5.3 % (<5.7)
[2024-01-15 15:07] LABS: Calculated LDL 64 mg/dL (<100); Cholesterol 130 mg/dL (<200); HDL Cholesterol 51 mg/dL (40-60); Triglyceride 78 mg/dL (<150)
[2024-01-15 21:29] LABS: LH 2.9 mIU/mL (See Note)
[2024-01-24 11:09] LABS: Testosterone, Free 0.34 ng/dL (<0.13-1.00); Testosterone, Total 12 ng/dL (8-60)
== END 2024-01-15 15:28 | disposition home or self-care (01) ==
LOC: LBO 15:28
PROVIDERS: PCP Family Medicine Adult Medicine; Visit Provider Obstetrics & Gynecology Gynecology
DX: E66.9 Obesity, unspecified (principal); L67.8 Other hair color and hair shaft abnormalities
CPT/HCPCS: 36415; 80061; 84402; 84403; 83002; 83036

== ENCOUNTER 2024-09-27 10:49 | Outpatient (REF) | payer BC, SELFPAY | END 2024-09-27 10:50 | disposition home or self-care (01) | LOC: LBN 10:49 | PROVIDERS: PCP Family Medicine Adult Medicine; Visit Provider Obstetrics & Gynecology | DX: N39.0 Urinary tract infection, site not specified (principal) | CPT/HCPCS: 87086 ==

== ENCOUNTER 2024-12-08 02:08 | Outpatient (CLI) | payer BC, SELFPAY ==
--- NOTE | 2024-12-08 | DI.MAMMO_ITS ---
Exam(s) MAMMO SCREENING EXAM: MAMMO SCREENING CLINICAL HISTORY: Screening, Z12.31 TECHNIQUE: Mammograms were interpreted according to the usual protocol including computer analysis w [employer] CAD system, tomosynthesis and C-view imaging. COMPARISON: No exams were available for comparison. Baseline examination. FINDINGS: The breasts are composed of scattered fibroglandular densities, Breast Density category B. No suspicious masses or suspicious microcalcifications are seen. No skin thickening or abnormal axillary lymph nodes are seen. IMPRESSION: BI-RADS Category 1, Negative mammogram Yearly screening mammography is recommended. Breast Density - Category B, scattered fibroglandular densities. A negative radiographic report should not delay biopsy if a dominant or clinically suspicious mass is present. Up to ten percent of cancers are not identified on mammography. A negative report may reinforce clinical impression. Adenosis and dense breasts may obscure an underlying neoplasm. False positive reports average 6 to 10%. Patient will receive a letter notifying them of these results.
== END 2024-12-08 02:28 ==
LOC: DI 02:09
PROVIDERS: PCP Family Medicine Adult Medicine; Visit Provider General Practice
DX: Z12.31 Encounter for screening mammogram for malignant neoplasm of breast (principal); R92.323 Mammographic fibroglandular density, bilateral breasts
CPT/HCPCS: 77063; 77067